=== PATIENT | male | born 1935 | race Hispanic/Latino ===

== ENCOUNTER 2017-11-08 02:07 | Inpatient (IN) | payer OTHER, MEDICAID ==
[2017-11-08] MEDS ORDERED: Amiodarone 150mg/3 ml vial ONE (02:15)
[2017-11-08] MEDS ORDERED: Sodium Chloride 0.9% 1,000 ML IV STA (02:27)
[2017-11-08 02:36] VITALS: BMI 20.3
[2017-11-08 02:40] LABS: VENOUS BLOOD GAS BASE EXCESS -3.7 mmol/L (0.0-2.0); VENOUS BLOOD GAS PCO2 45 mmHg (40-60); VENOUS BLOOD GAS PO2 14 mm/Hg (30-55); VENOUS BLOOD PH 7.31 (7.32-7.43)
[2017-11-08 02:43] LABS: BASO % 0.2 % (0.0-2.0); HEMOGLOBIN 11.5 g/dL (12.0-18.0); LYMPH # 0.6 K/uL (1.0-4.3); LYMPH % 4.5 % (20.0-40.0); MEAN CELL VOLUME 93.1 fL (80.0-94.0); MEAN CORPUSCULAR HEMOGLOBIN 30.5 pg (27.0-31.0); MEAN CORPUSCULAR HGB CONC 32.8 g/dL (33.0-37.0); MEAN PLATELET VOLUME 11.1 fL (7.2-11.7); MONO # 0.3 K/uL (0.0-0.8); MONO % 2.2 % (0.0-10.0); NEUT % 93.1 % (50.0-75.0); NRBC % 0.1 % (0.0-2.0); PLATELET COUNT 182 K/uL (130-400); RBC 3.79 Mil/uL (4.40-5.90); RED CELL DISTRIBUTION WIDTH 15.5 % (11.5-14.5)
[2017-11-08 02:50] LABS: INR 1.5; PROTHROMBIN TIME 17.1 SECONDS (9.7-12.2)
[2017-11-08 02:55] LABS: CALCIUM 8.2 mg/dl (8.6-10.4)
[2017-11-08] MEDS ORDERED: Piperacillin/Tazobact 3.375 gm 100 ML IVPB STA (02:56)
[2017-11-08 02:57] LABS: ALB/GLOB RATIO 0.7 (1.0-2.1); ALBUMIN 2.8 g/dL (3.5-5.0)
[2017-11-08] MEDS ORDERED: Moxifloxacin IV 400mg/250ml NS 400 MG/250 ML BAG IVPB STA (02:57)
[2017-11-08] MEDS ORDERED: Vancomycin 1 GM 1 GM/250 ML BAG IVPB STA (02:58)
[2017-11-08 03:09] LABS: CK-MB 0.68 ng/mL (0.0-3.38); TROPONIN I 0.105 ng/mL (0.00-0.120)
[2017-11-08] MEDS ORDERED: Piperacill/Tazo 3.375gm in Dex 3.375 GM/50 ML BAG IVPB STA (03:23)
[2017-11-08] MEDS ORDERED: Digoxin 500 mcg/2ml (0.5 mg/2ml) Inj IVP ONE ×2 (03:31→09:28)
[2017-11-08] MEDS ORDERED: Sodium Chloride 0.9% 1,000 ML IV ONE (03:35)
[2017-11-08 03:53] LABS: BANDS 62 % (0-2); LYMPHOCYTE 7 % (20-40); METAMYELOCYTE 1 % (0-0); MONOCYTE 4 % (0-10); NEUTROPHIL 25 % (50-75); PLATELET ESTIMATE NORMAL (NORMAL); REACTIVE LYMPHOCYTES 1 % (0-0); TOTAL CELLS COUNTED 100
[2017-11-08] MEDS ORDERED: Azithromycin 500 MG in Sodium Chloride 0.9% 250 ML IVPB STA (03:55)
[2017-11-08 03:57] LABS: SQUAMOUS EPITHIAL < 1 /hpf (0-5); URINE AMORPHOUS SEDIMENT RARE /ul (<OCC); URINE BACTERIA MANY (<OCC); URINE BILIRUBIN 1+ (NEGATIVE); URINE BLOOD 1+ (NEGATIVE); URINE CLARITY Hazy (Clear); URINE COLOR Amber (YELLOW); URINE GLUCOSE (UA) NORMAL (Normal); URINE LEUKOCYTE ESTERASE 1+ Leu/uL (Negative); URINE PROTEIN 2+ mg/dL (NEGATIVE)
[2017-11-08] MEDS ORDERED: Vancomycin 1 gm/NS 200 ml 1 GM/200 ML BAG IVPB STA (04:05)
--- NOTE | 2017-11-08 04:12 | CP.PCM.CON ---
History of Present Illness - History of Present Illness History of Present Illness: 82 y/o male from long term presents to [facility] with low BP and A-fib with RVR. Patient was unsuccessfully cardioverted by EMS. Patient cannot provide any history due to underlying dementia. Patient has a history of dysphagia. Pmx: reviewed from [place] notes Psurghx: reviewed from [place] notes allergiee: no allergies family history reviewed and non-contributary Review of Systems - Review of Systems Review of Systems: febrile/RVR - Constitutional Constitutional: As Per HPI Past Patient History - Infectious Disease Hx of Infectious Diseases: None - Past Social History Smoking Status: Unknown If Ever Smoked - CARDIAC Other/Comment: Acute Ischemic Heart disease - NEUROLOGICAL Other/Comment: Cerebral Infarction - HEMATOLOGICAL/ONCOLOGICAL Hx Anemia: Yes Other/Comment: B12 deficiency - MUSCULOSKELETAL/RHEUMATOLOGICAL Hx Osteoporosis: Yes - GASTROINTESTINAL Hx Gastroesophageal Reflux: Yes - PSYCHIATRIC Hx Substance Use: No - SURGICAL HISTORY Hx Surgeries: No - ANESTHESIA Hx Anesthesia: No Meds Allergies/Adverse Reactions: Allergies Allergy/AdvReac Type Severity Reaction Status Date / Time No Known Allergies Allergy Unverified 11/08/17 02:23 - Medications Medications: Current Medications Heparin Sodium (Porcine) (Heparin) 5,000 units SC Q12H VANE Sodium Bicarbonate 75 meq/ (Sodium Chloride) 1,075 mls @ 42 mls/hr IV .Q24H VANE Sodium Chloride (Sodium Chloride 0.9%) 1,000 mls @ 1,000 mls/hr IV .Q1H ONE Stop: 11/08/17 04:34 Last Admin: 11/08/17 02:30 Dose: 1,000 mls/hr Azithromycin 500 mg/ Sodium (Chloride) 250 mls @ 166.667 mls/hr IVPB STAT STA PRN Reason: Protocol Stop: 11/08/17 05:24 Vancomycin/Sodium Chloride (Vancomycin 1 Gm/Ns 200 Ml) 1 gm in 200 mls @ 133.333 mls/hr IVPB STAT STA PRN Reason: Protocol Stop: 11/08/17 05:34 Physical Exam - Head Exam Additional comments: 3 [place] holes left frontal skull - Eye Exam Eye Exam: EOMI - ENT Exam ENT Exam: Mucous Membranes Dry - Neck Exam Neck exam: Positive for: Normal Inspection - Respiratory Exam Respiratory Exam: Clear to Auscultation Bilateral, Respiratory Distress. absent : Rales, Rhonchi, Wheezes - Cardiovascular Exam Cardiovascular Exam: Tachycardia, +S1, +S2 - GI/Abdominal Exam GI & Abdominal Exam: Normal Bowel Sounds, Soft - Extremities Exam Extremities exam: Positive for: pedal edema - Neurological Exam Neurological exam: Alert Results - Vital Signs Recent Vital Signs: Last Vital Signs Temp 101.8 F H 11/08/17 02:51 Pulse 168 H 11/08/17 02:43 Resp 24 11/08/17 02:43 BP 95/30 L 11/08/17 02:43 Pulse Ox 97 11/08/17 02:43 - Labs Result Diagrams: 11/08/17 02:40 11/08/17 02:40 Labs: Laboratory Results - last 24 hr 11/08/17 11/08/17 11/08/17 02:19 02:29 02:40 WBC 14.0 H RBC 3.79 L Hgb 11.5 L Hct 35.3 MCV 93.1 MCH 30.5 MCHC 32.8 L RDW 15.5 H Plt Count 182 MPV 11.1 Neut % (Auto) 93.1 H Lymph % (Auto) 4.5 L [place] % (Auto) 2.2 Eos % (Auto) 0.0 Baso % (Auto) 0.2 Neut # (Auto) 13.0 H Lymph # (Auto) 0.6 L [place] # (Auto) 0.3 Eos # (Auto) 0.0 Baso # (Auto) 0.0 Neutrophils % (Manual) 25 L Band Neutrophils % 62 H* Lymphocytes % (Manual) 7 L Reactive Lymphs % 1 H Monocytes % (Manual) 4 Metamyelocytes % 1 H Platelet Estimate Normal PT INR APTT pO2 14 L VBG pH 7.31 L VBG pCO2 45 VBG HCO3 19.8 VBG Total CO2 24.1 VBG O2 Sat (Calc) 19.7 L VBG Base Excess -3.7 L VBG Potassium 3.2 L Sodium 142.0 Chloride 105.0 Glucose 106 Lactate 5.5 H* Crit Value Called To Dr dubon Crit Value Called By Soheila humphrey rt Crit Value Read Back Y Blood Gas Notified Time 240 Potassium Carbon Dioxide Anion Gap BUN Creatinine Est GFR ( Amer) Est GFR (Non-Af Amer) POC Glucose (mg/dL) 120 H Random Glucose Calcium Magnesium Total Bilirubin AST ALT Alkaline Phosphatase Total Creatine Kinase CK-MB (Mass) Troponin I NT-Pro-B Natriuret Pep Total Protein Albumin Globulin Albumin/Globulin Ratio Venous Blood Potassium 3.2 L Urine Color Urine Clarity Urine pH Ur Specific [place] Urine Protein Urine Glucose (UA) Urine Ketones Urine Blood Urine Nitrate Urine Bilirubin Urine Urobilinogen Ur Leukocyte Esterase Urine WBC (Auto) Urine RBC (Auto) Ur Squamous Epith Cells Amorphous Sediment Urine Bacteria Valproic Acid 11/08/17 11/08/17 11/08/17 02:40 02:40 02:58 WBC RBC Hgb Hct MCV MCH MCHC RDW Plt Count MPV Neut % (Auto) Lymph % (Auto) [place] % (Auto) Eos % (Auto) Baso % (Auto) Neut # (Auto) Lymph # (Auto) [place] # (Auto) Eos # (Auto) Baso # (Auto) Neutrophils % (Manual) Band Neutrophils % Lymphocytes % (Manual) Reactive Lymphs % Monocytes % (Manual) Metamyelocytes % Platelet Estimate PT 17.1 H INR 1.5 APTT 30 pO2 VBG pH VBG pCO2 VBG HCO3 VBG Total CO2 VBG O2 Sat (Calc) VBG Base Excess VBG Potassium Sodium 144 Chloride 104 Glucose Lactate Crit Value Called To Crit Value Called By Crit Value Read Back Blood Gas Notified Time Potassium 4.2 Carbon Dioxide 22 Anion Gap 22 H BUN 59 H Creatinine 2.7 H Est GFR ( Amer) 27 Est GFR (Non-Af Amer) 23 POC Glucose (mg/dL) Random Glucose 103 Calcium 8.2 L Magnesium 2.0 Total Bilirubin 1.7 H AST 40 ALT 15 L Alkaline Phosphatase 62 Total Creatine Kinase 168 CK-MB (Mass) 0.68 Troponin I 0.1050 NT-Pro-B Natriuret Pep 6170 H Total Protein 6.9 Albumin 2.8 L Globulin 4.1 H Albumin/Globulin Ratio 0.7 L Venous Blood Potassium Urine Color Urine Clarity Urine pH Ur Specific [place] Urine Protein Urine Glucose (UA) Urine Ketones Urine Blood Urine Nitrate Urine Bilirubin Urine Urobilinogen Ur Leukocyte Esterase Urine WBC (Auto) Urine RBC (Auto) Ur Squamous Epith Cells Amorphous Sediment Urine Bacteria Valproic Acid < 10.0 L 11/08/17 03:45 WBC RBC Hgb Hct MCV MCH MCHC RDW Plt Count MPV Neut % (Auto) Lymph % (Auto) [place] % (Auto) Eos % (Auto) Baso % (Auto) Neut # (Auto) Lymph # (Auto) [place] # (Auto) Eos # (Auto) Baso # (Auto) Neutrophils % (Manual) Band Neutrophils % Lymphocytes % (Manual) Reactive Lymphs % Monocytes % (Manual) Metamyelocytes % Platelet Estimate PT INR APTT pO2 VBG pH VBG pCO2 VBG HCO3 VBG Total CO2 VBG O2 Sat (Calc) VBG Base Excess VBG Potassium Sodium Chloride Glucose Lactate Crit Value Called To Crit Value Called By Crit Value Read Back Blood Gas Notified Time Potassium Carbon Dioxide Anion Gap BUN Creatinine Est GFR ( Amer) Est GFR (Non-Af Amer) POC Glucose (mg/dL) Random Glucose Calcium Magnesium Total Bilirubin AST ALT Alkaline Phosphatase Total Creatine Kinase CK-MB (Mass) Troponin I NT-Pro-B Natriuret Pep Total Protein Albumin Globulin Albumin/Globulin Ratio Venous Blood Potassium Urine Color [place] Urine Clarity Hazy Urine pH 5.0 Ur Specific [place] 1.018 Urine Protein 2+ H Urine Glucose (UA) Normal Urine Ketones Negative Urine Blood 1+ H Urine Nitrate Negative Urine Bilirubin 1+ H Urine Urobilinogen 4.0 Ur Leukocyte Esterase 1+ H Urine WBC (Auto) 59 H Urine RBC (Auto) 8 H Ur Squamous Epith Cells < 1 Amorphous Sediment Rare H Urine Bacteria Many H Valproic Acid Assessment & Plan - Assessment and Plan (Free Text) Assessment: -Sepsis: continue sepsis protocol with 30 ml/kg of IVF with broad spectruma bx zosyn/vanco per level and azithro), burch culture and serial lactic -A-fib with RVR: dig 0.5 mg and verapamil 2.5 mg, HR controlled with IVF, BNP high, suspect diastolice heart failure -CKD: suspect chronic dehydration, avoid nephrotoxic drugs -at risk of CAD: RBBB/A-fib, check trop x3 q8hrs obtain echo -GI: NPO, speech and swallow -BGm q6hrs, ISS lispro -dvt ppx heparin sq q12hrs -PUD ppx pepcid 20 mg q24hrs Patient will benefit from ICU level care for hydration, resusiation for sepsis and prompt abx regimen cc time 40 minutes - Date & Time Date: 11/08/17 Time: 04:23
--- NOTE | 2017-11-08 04:15 | C.PDOC ---
History Of Present Illness EMS found pt hypertensive and in rapid Afib. They attempted cardioversion with 50J, unsuccessfully. Pt was given Amiodarone 150mg on ED arrival with no change in rhythm. Pt was found to be febrile in the ED. Time Seen by Provider: 11/08/17 02:16 Chief Complaint (Nursing): Altered Mental Status History Per: Patient, EMS, Other ([facility] records) History/Exam Limitations: Clinical Condition Onset/Duration Of Symptoms: Other (tonight) Onset Of Symptoms: Cannot Confirm Onset Current Symptoms Are (Timing): Still Present Usual Baseline: Bedridden Exacerbating Factor(s): Fever Severity: Severe Additional History Per: Care Home, Prior Records Associated Symptoms: Fever, Confused, Cough Past Medical History Reviewed: Historical Data, Nursing Documentation, Vital Signs Vital Signs: Last Vital Signs Temp 101.8 F H 11/08/17 02:51 Pulse 168 H 11/08/17 02:43 Resp 24 11/08/17 02:43 BP 95/30 L 11/08/17 02:43 Pulse Ox 97 11/08/17 02:43 - Medical History PMH: Anemia, Bipolar Disorder, Hyperlipidemia, Osteoporosis Family History: States: Unknown Family Hx - Social History Hx Alcohol Use: No Hx Substance Use: No - Immunization History Hx Tetanus Toxoid Vaccination: No (no record) Hx Influenza Vaccination: No (no record) Hx Pneumococcal Vaccination: No Review Of Systems Review Of Systems: ROS cannot be obtained secondary to pt's inabilty to answer questions. Physical Exam - Physical Exam Appears: Toxic, In Acute Distress, Confused, Chronically Ill Skin: Normal Color, Warm, Dry Head: Atraumatic Eye(s): bilateral: PERRL Oral Mucosa: Dry Neck: Normal ROM, Supple Cardiovascular: Rhythm Irregular (tachycardia) Respiratory: No Accessory Muscle Use, Rhonchi Gastrointestinal/Abdominal: Soft Extremity: Normal ROM Neurological/Psych: Eyes Open With Command, Slow To Respond With Command, Other (Moving all extremities) ED Course And Treatment - Laboratory Results Result Diagrams: 11/08/17 02:40 11/08/17 02:40 Lab Interpretation: Abnormal Interpretation Of Abnormal: Bandemia. Elevated BUN/Cr. Possible UTI. ECG: Interpreted By Me, Viewed By Me ECG Rhythm: Atrial Fibrillation, R BBB, Nonspecific Changes ECG Interpretation: Abnormal Rate From EC Pulse Ox Interpretation: Abnormal Interpretation Of Abnormal: Hypoxia on RA - Radiology CXR: Interpreted by Me, Viewed By Me CXR Interpretation: Yes: Infiltrates (multifocal) - Physician Consult Information Physician Contacted: Alexia Collins (ICU) Outcome Of Conversation: He evaluated pt in the ED and admitted to ICU. Progress - Interventions Interventions:: Observation, Intravenous fluid, Oxygen - Medications Administered Intravenous: Other (Amiodarone, Abx) - Data Reviewed Data Reviewed: Lab, Diagnostic imaging, EKG, Old records - Patient Status Patient status: Partially improved, Critical - Critical Care Citical Care: Excluding Proc Time Critical Care Time: 60 minutes - Continuity of Care Discussed patient case with:: Patient, ED Nurse, On-call PMD-pt unassigned Discussed pt. case with medical sales consultant/specialty: Pulmonary/Crit. Care - Patient Plan Patient Plan: Admission, ICU Disposition Discussed With : Jared Bloom Comment: He accepted pt on hospitalist service. Doctor Will See Patient In The: Hospital Counseled Patient/Family Regarding: Studies Performed, Diagnosis - Disposition Disposition: HOSPITALIZED Disposition Time: 04:25 Condition: CRITICAL - Clinical Impression Clinical Impression: Sepsis, Atrial fibrillation with rapid ventricular response
--- NOTE | 2017-11-08 04:27 | PCM.SEPTIC ---
Sepsis Progress Note - Reassessment Type Reassessment Type: Non-invasive reassessment - Non Invasive Reassessment Were the most recent vital sign reviewed: Yes Vital Sign (Latest): Temp Pulse Resp BP Pulse Ox 101.8 F H 168 H 24 95/30 L 97 11/08/17 02:51 11/08/17 02:43 11/08/17 02:43 11/08/17 02:43 11/08/17 04:14 Cardiovascular: Yes: Tachycardia, Irregularly Irregular Respiratory: Yes: Normal Breath Sounds. No: Rales, Wheezing, Respiratory Distress Capillary Refill: Normal (Less than 2 sec) Pulses: Normal Radial, Decreased Dorsalis Pedis, Decreased Posterior Tibialis Skin: Normal Color - Invasive Reassessment (complete 2 of 4) Was a Central Venous Pressure Measurement obtained within 6 Hours after the presentation of septic shock: No Was a central venous oxygen measurement obtained within 6 hours after the presentation of septic shock: No Was a bedside cardiovascular ultrasound performed within 6 hours after the presentation of septic shock: No Type performed: Echocardiogram Was a passive leg raise performed or was a fluid challenge performed within 6 hrs of the initial fluid bolus: Yes Passive Leg Raise Result: Not Applicable Fluid Challenge performed: Yes
[2017-11-08] MEDS ORDERED: Piperacill/Tazo 2.25gm in Dex 2.25 GM/50 ML BAG IVPB SCH (04:30)
--- NOTE | 2017-11-08 05:18 | CP.PCM.HP ---
<DaisyAlda Roberto - Last Filed: 11/08/17 05:14> History of Present Illness - History of Present Illness History of Present Illness: CC: AMS HPI: Patient is an 82 y/o M with PMHx of Bipolar disorder, b/l club foot, poor vision b/l, CKD stage 3, BPH, GERD, HTN, HLD, mixed incontinence, primary open angle glaucoma, and mitral valve insufficiency who was sent from [facility] for altered mental status and weakness. Patient found to be in A fib with RVR. Patient cardioverted in field but stayed in A. Fib. On exam patient is altered. Patient unable to answer questions and is asking for water. ROS unobtainable. Information about PMHx gathered from paperwork from [facility]. Allergies: NKDA PMHx: Bipolar disorder, b/l club foot, poor vision b/l, CKD stage 3, BPH, GERD, HTN, HLD, mixed incontinence, primary open angle glaucoma, mitral valve insufficiency Present on Admission - Present on Admission Any Indicators Present on Admission: No History of DVT/PE: No History of Uncontrolled Diabetes: No Urinary Catheter: No Decubitus Ulcer Present: No Review of Systems - Review of Systems Systems not reviewed;Unavailable: Altered Mental Status Past Patient History - Infectious Disease Hx of Infectious Diseases: None - Past Social History Smoking Status: Unknown If Ever Smoked - CARDIAC Other/Comment: Acute Ischemic Heart disease - NEUROLOGICAL Other/Comment: Cerebral Infarction - HEMATOLOGICAL/ONCOLOGICAL Hx Anemia: Yes - MUSCULOSKELETAL/RHEUMATOLOGICAL Hx Osteoporosis: Yes - GASTROINTESTINAL Hx Gastroesophageal Reflux: Yes - PSYCHIATRIC Hx Bipolar Disorder: Yes Hx Substance Use: No - SURGICAL HISTORY Hx Surgeries: No - ANESTHESIA Hx Anesthesia: No Meds Allergies/Adverse Reactions: Allergies Allergy/AdvReac Type Severity Reaction Status Date / Time No Known Allergies Allergy Unverified 11/08/17 02:23 Physical Exam - Constitutional Appears: Toxic, No Acute Distress - Head Exam Head Exam: ATRAUMATIC, NORMAL INSPECTION, NORMOCEPHALIC Additional comments: 3 [place]ina holes left skull - Eye Exam Eye Exam: EOMI, Normal appearance - ENT Exam ENT Exam: Mucous Membranes Dry - Respiratory Exam Respiratory Exam: Clear to Auscultation Bilateral, NORMAL BREATHING PATTERN. absent: Rhonchi, Wheezes, Respiratory Distress Additional comments: nonrebreather mask - Cardiovascular Exam Cardiovascular Exam: Tachycardia, Irregular Rhythm, +S1, +S2. absent: RRR - GI/Abdominal Exam GI & Abdominal Exam: Normal Bowel Sounds, Soft. absent: Tenderness - Extremities Exam Extremities exam: Positive for: normal inspection Additional comments: b/l club foot - Neurological Exam Neurological exam: Altered - Skin Skin Exam: Intact, Normal Color, Warm Results - Vital Signs Recent Vital Signs: Last Vital Signs Temp 98.3 F 11/08/17 04:37 Pulse 103 H 11/08/17 04:37 Resp 16 11/08/17 04:37 BP 92/68 L 11/08/17 04:37 Pulse Ox 95 11/08/17 04:37 - Labs Result Diagrams: 11/08/17 02:40 11/08/17 02:40 Labs: Laboratory Results - last 24 hr 11/08/17 11/08/17 11/08/17 02:19 02:29 02:40 WBC 14.0 H RBC 3.79 L Hgb 11.5 L Hct 35.3 MCV 93.1 MCH 30.5 MCHC 32.8 L RDW 15.5 H Plt Count 182 MPV 11.1 Neut % (Auto) 93.1 H Lymph % (Auto) 4.5 L [place] % (Auto) 2.2 Eos % (Auto) 0.0 Baso % (Auto) 0.2 Neut # (Auto) 13.0 H Lymph # (Auto) 0.6 L [place] # (Auto) 0.3 Eos # (Auto) 0.0 Baso # (Auto) 0.0 Neutrophils % (Manual) 25 L Band Neutrophils % 62 H* Lymphocytes % (Manual) 7 L Reactive Lymphs % 1 H Monocytes % (Manual) 4 Metamyelocytes % 1 H Platelet Estimate Normal PT INR APTT pO2 14 L VBG pH 7.31 L VBG pCO2 45 VBG HCO3 19.8 VBG Total CO2 24.1 VBG O2 Sat (Calc) 19.7 L VBG Base Excess -3.7 L VBG Potassium 3.2 L Sodium 142.0 Chloride 105.0 Glucose 106 Lactate 5.5 H* Crit Value Called To Dr dubon Crit Value Called By Soheila humphrey rt Crit Value Read Back Y Blood Gas Notified Time 240 Potassium Carbon Dioxide Anion Gap BUN Creatinine Est GFR ( Amer) Est GFR (Non-Af Amer) POC Glucose (mg/dL) 120 H Random Glucose Calcium Magnesium Total Bilirubin AST ALT Alkaline Phosphatase Total Creatine Kinase CK-MB (Mass) Troponin I NT-Pro-B Natriuret Pep Total Protein Albumin Globulin Albumin/Globulin Ratio Venous Blood Potassium 3.2 L Urine Color Urine Clarity Urine pH Ur Specific Mcgee Urine Protein Urine Glucose (UA) Urine Ketones Urine Blood Urine Nitrate Urine Bilirubin Urine Urobilinogen Ur Leukocyte Esterase Urine WBC (Auto) Urine RBC (Auto) Ur Squamous Epith Cells Amorphous Sediment Urine Bacteria Valproic Acid 11/08/17 11/08/17 11/08/17 02:40 02:40 02:58 WBC RBC Hgb Hct MCV MCH MCHC RDW Plt Count MPV Neut % (Auto) Lymph % (Auto) [place] % (Auto) Eos % (Auto) Baso % (Auto) Neut # (Auto) Lymph # (Auto) [place] # (Auto) Eos # (Auto) Baso # (Auto) Neutrophils % (Manual) Band Neutrophils % Lymphocytes % (Manual) Reactive Lymphs % Monocytes % (Manual) Metamyelocytes % Platelet Estimate PT 17.1 H INR 1.5 APTT 30 pO2 VBG pH VBG pCO2 VBG HCO3 VBG Total CO2 VBG O2 Sat (Calc) VBG Base Excess VBG Potassium Sodium 144 Chloride 104 Glucose Lactate Crit Value Called To Crit Value Called By Crit Value Read Back Blood Gas Notified Time Potassium 4.2 Carbon Dioxide 22 Anion Gap 22 H BUN 59 H Creatinine 2.7 H Est GFR ( Amer) 27 Est GFR (Non-Af Amer) 23 POC Glucose (mg/dL) Random Glucose 103 Calcium 8.2 L Magnesium 2.0 Total Bilirubin 1.7 H AST 40 ALT 15 L Alkaline Phosphatase 62 Total Creatine Kinase 168 CK-MB (Mass) 0.68 Troponin I 0.1050 NT-Pro-B Natriuret Pep 6170 H Total Protein 6.9 Albumin 2.8 L Globulin 4.1 H Albumin/Globulin Ratio 0.7 L Venous Blood Potassium Urine Color Urine Clarity Urine pH Ur Specific Mcgee Urine Protein Urine Glucose (UA) Urine Ketones Urine Blood Urine Nitrate Urine Bilirubin Urine Urobilinogen Ur Leukocyte Esterase Urine WBC (Auto) Urine RBC (Auto) Ur Squamous Epith Cells Amorphous Sediment Urine Bacteria Valproic Acid < 10.0 L 11/08/17 03:45 WBC RBC Hgb Hct MCV MCH MCHC RDW Plt Count MPV Neut % (Auto) Lymph % (Auto) [place] % (Auto) Eos % (Auto) Baso % (Auto) Neut # (Auto) Lymph # (Auto) [place] # (Auto) Eos # (Auto) Baso # (Auto) Neutrophils % (Manual) Band Neutrophils % Lymphocytes % (Manual) Reactive Lymphs % Monocytes % (Manual) Metamyelocytes % Platelet Estimate PT INR APTT pO2 VBG pH VBG pCO2 VBG HCO3 VBG Total CO2 VBG O2 Sat (Calc) VBG Base Excess VBG Potassium Sodium Chloride Glucose Lactate Crit Value Called To Crit Value Called By Crit Value Read Back Blood Gas Notified Time Potassium Carbon Dioxide Anion Gap BUN Creatinine Est GFR ( Amer) Est GFR (Non-Af Amer) POC Glucose (mg/dL) Random Glucose Calcium Magnesium Total Bilirubin AST ALT Alkaline Phosphatase Total Creatine Kinase CK-MB (Mass) Troponin I NT-Pro-B Natriuret Pep Total Protein Albumin Globulin Albumin/Globulin Ratio Venous Blood Potassium Urine Color Eleonora Urine Clarity Hazy Urine pH 5.0 Ur Specific Mcgee 1.018 Urine Protein 2+ H Urine Glucose (UA) Normal Urine Ketones Negative Urine Blood 1+ H Urine Nitrate Negative Urine Bilirubin 1+ H Urine Urobilinogen 4.0 Ur Leukocyte Esterase 1+ H Urine WBC (Auto) 59 H Urine RBC (Auto) 8 H Ur Squamous Epith Cells < 1 Amorphous Sediment Rare H Urine Bacteria Many H Valproic Acid Assessment & Plan - Assessment and Plan (Free Text) Assessment: Sepsis: admit to ICU WBC: 14, bands 62 Lactate 5.5 sepsis protocol IVF zosyn/vanco azithromycin burch culture serial lactates A-fib w/ RVR: EKG: A fib with RVR at 172 dig 0.5 mg and verapamil 2.5 mg Trop I .105 JOYCE x 2 Echo CKD BUN: 59 Cr: 2.7 IVF avoid nephrotoxic drugs Prophylaxis: Heparin 5000 sc q12h Pepcid 20mg daily <Jared Bloom - Last Filed: 11/08/17 06:39> Results - Vital Signs Recent Vital Signs: Last Vital Signs Temp 98 F 11/08/17 05:58 Pulse 95 H 11/08/17 05:22 Resp 18 11/08/17 05:22 BP 92/68 L 11/08/17 04:37 Pulse Ox 100 11/08/17 05:22 - Labs Result Diagrams: 11/08/17 02:40 11/08/17 02:40 Labs: Laboratory Results - last 24 hr 11/08/17 11/08/17 11/08/17 02:19 02:29 02:40 WBC 14.0 H RBC 3.79 L Hgb 11.5 L Hct 35.3 MCV 93.1 MCH 30.5 MCHC 32.8 L RDW 15.5 H Plt Count 182 MPV 11.1 Neut % (Auto) 93.1 H Lymph % (Auto) 4.5 L [place] % (Auto) 2.2 Eos % (Auto) 0.0 Baso % (Auto) 0.2 Neut # (Auto) 13.0 H Lymph # (Auto) 0.6 L [place] # (Auto) 0.3 Eos # (Auto) 0.0 Baso # (Auto) 0.0 Neutrophils % (Manual) 25 L Band Neutrophils % 62 H* Lymphocytes % (Manual) 7 L Reactive Lymphs % 1 H Monocytes % (Manual) 4 Metamyelocytes % 1 H Platelet Estimate Normal PT INR APTT pO2 14 L VBG pH 7.31 L VBG pCO2 45 VBG HCO3 19.8 VBG Total CO2 24.1 VBG O2 Sat (Calc) 19.7 L VBG Base Excess -3.7 L VBG Potassium 3.2 L Sodium 142.0 Chloride 105.0 Glucose 106 Lactate 5.5 H* Crit Value Called To Dr dubon Crit Value Called By Soheila humphrey rt Crit Value Read Back Y Blood Gas Notified Time 240 Potassium Carbon Dioxide Anion Gap BUN Creatinine Est GFR ( Amer) Est GFR (Non-Af Amer) POC Glucose (mg/dL) 120 H Random Glucose Calcium Phosphorus Magnesium Total Bilirubin AST ALT Alkaline Phosphatase Total Creatine Kinase CK-MB (Mass) Troponin I NT-Pro-B Natriuret Pep Total Protein Albumin Globulin Albumin/Globulin Ratio Venous Blood Potassium 3.2 L Urine Color Urine Clarity Urine pH Ur Specific Mcgee Urine Protein Urine Glucose (UA) Urine Ketones Urine Blood Urine Nitrate Urine Bilirubin Urine Urobilinogen Ur Leukocyte Esterase Urine WBC (Auto) Urine RBC (Auto) Ur Squamous Epith Cells Amorphous Sediment Urine Bacteria Valproic Acid 11/08/17 11/08/17 11/08/17 02:40 02:40 02:58 WBC RBC Hgb Hct MCV MCH MCHC RDW Plt Count MPV Neut % (Auto) Lymph % (Auto) [place] % (Auto) Eos % (Auto) Baso % (Auto) Neut # (Auto) Lymph # (Auto) [place] # (Auto) Eos # (Auto) Baso # (Auto) Neutrophils % (Manual) Band Neutrophils % Lymphocytes % (Manual) Reactive Lymphs % Monocytes % (Manual) Metamyelocytes % Platelet Estimate PT 17.1 H INR 1.5 APTT 30 pO2 VBG pH VBG pCO2 VBG HCO3 VBG Total CO2 VBG O2 Sat (Calc) VBG Base Excess VBG Potassium Sodium 144 Chloride 104 Glucose Lactate Crit Value Called To Crit Value Called By Crit Value Read Back Blood Gas Notified Time Potassium 4.2 Carbon Dioxide 22 Anion Gap 22 H BUN 59 H Creatinine 2.7 H Est GFR ( Amer) 27 Est GFR (Non-Af Amer) 23 POC Glucose (mg/dL) Random Glucose 103 Calcium 8.2 L Phosphorus Magnesium 2.0 Total Bilirubin 1.7 H AST 40 ALT 15 L Alkaline Phosphatase 62 Total Creatine Kinase 168 CK-MB (Mass) 0.68 Troponin I 0.1050 NT-Pro-B Natriuret Pep 6170 H Total Protein 6.9 Albumin 2.8 L Globulin 4.1 H Albumin/Globulin Ratio 0.7 L Venous Blood Potassium Urine Color Urine Clarity Urine pH Ur Specific [place] Urine Protein Urine Glucose (UA) Urine Ketones Urine Blood Urine Nitrate Urine Bilirubin Urine Urobilinogen Ur Leukocyte Esterase Urine WBC (Auto) Urine RBC (Auto) Ur Squamous Epith Cells Amorphous Sediment Urine Bacteria Valproic Acid < 10.0 L 11/08/17 11/08/17 11/08/17 03:45 04:24 05:17 WBC RBC Hgb Hct MCV MCH MCHC RDW Plt Count MPV Neut % (Auto) Lymph % (Auto) [place] % (Auto) Eos % (Auto) Baso % (Auto) Neut # (Auto) Lymph # (Auto) [place] # (Auto) Eos # (Auto) Baso # (Auto) Neutrophils % (Manual) Band Neutrophils % Lymphocytes % (Manual) Reactive Lymphs % Monocytes % (Manual) Metamyelocytes % Platelet Estimate PT INR APTT pO2 21 L VBG pH 7.31 L VBG pCO2 39 L VBG HCO3 18.2 VBG Total CO2 20.8 L VBG O2 Sat (Calc) 37.6 L VBG Base Excess -6.2 L VBG Potassium 3.4 L Sodium 141.0 Chloride 110.0 H Glucose 92 Lactate 5.7 H* Crit Value Called To Cassi rn Crit Value Called By Toño independent producer Crit Value Read Back Y Blood Gas Notified Time 520 Potassium Carbon Dioxide Anion Gap BUN Creatinine Est GFR ( Amer) Est GFR (Non-Af Amer) POC Glucose (mg/dL) Random Glucose Calcium Phosphorus 3.7 Magnesium Total Bilirubin AST ALT Alkaline Phosphatase Total Creatine Kinase CK-MB (Mass) Troponin I NT-Pro-B Natriuret Pep Total Protein Albumin Globulin Albumin/Globulin Ratio Venous Blood Potassium 3.4 L Urine Color Eleonora Urine Clarity Hazy Urine pH 5.0 Ur Specific [place]ge[place] 1.018 Urine Protein 2+ H Urine Glucose (UA) Normal Urine Ketones Negative Urine Blood 1+ H Urine Nitrate Negative Urine Bilirubin 1+ H Urine Urobilinogen 4.0 Ur Leukocyte Esterase 1+ H Urine WBC (Auto) 59 H Urine RBC (Auto) 8 H Ur Squamous Epith Cells < 1 Amorphous Sediment Rare H Urine Bacteria Many H Valproic Acid Assessment & Plan - Date & Time Date: 11/08/17 (I have seen and examined the patient. I agree with the findings and plan of care as documented by Dr. Spangler. Patient with sepsis. Likely secondary to pneumonia. Vanco, zosyn, and Azithromycin. Also with atrial fib with RVR. Dig and Verapamil. Also with CKD. Monitor and consider nephro consult. Admit to ICU for further management. Monitor for acute changes.) Time: 06:37 Attending/Attestation - Attestation I have personally seen and examined this patient.: Yes I have fully participated in the care of the patient.: Yes I have reviewed all pertinent clinical information: Yes
[2017-11-08 05:21] LABS: VENOUS BLOOD GAS BASE EXCESS -6.2 mmol/L (0.0-2.0); VENOUS BLOOD GAS PCO2 39 mmHg (40-60); VENOUS BLOOD GAS PO2 21 mm/Hg (30-55); VENOUS BLOOD PH 7.31 (7.32-7.43)
--- NOTE | 2017-11-08 06:29 | CT ---
EXAM: CT Head Without Intravenous Contrast CLINICAL HISTORY: 82 years old, male; Signs and symptoms; Altered mental status/memory loss; Confusion or disorientation; Additional info: Eval sub dural TECHNIQUE: Axial computed tomography images of the head/brain without intravenous contrast. All CT scans at this facility use one or more dose reduction techniques, viz.: automated exposure control; ma/kV adjustment per patient size (including targeted exams where dose is matched to indication; i.e. head); or iterative reconstruction technique. Coronal and sagittal reformatted images were created and reviewed. COMPARISON: No relevant prior studies available. FINDINGS: Brain: Severe cerebral atrophy. 0.4 x 0.4 x 0.3 cm hyperdense focus within left cerebellum. No mass. Several scattered foci of decreased attenuation within periventricular/subcortical white matter. Grossly preserved quinn-white matter differentiation. Ventricles: Unremarkable. No hydrocephalus. Bones/joints: No acute fracture. Craniotomy. Postsurgical changes of right facial bones. Chronic deformity anterior wall of left maxilla sinus, nasal bones. Soft tissues: Unremarkable. Vasculature: Atherosclerotic disease of intracranial arteries. Sinuses: No acute sinusitis. Mastoid air cells: No mastoid effusion. Auditory system: Cerumen. Orbits: Unremarkable as visualized. IMPRESSION: 1. Small hyperdensity within left cerebellum concerning for hemorrhage. Followup is recommended. 2. Nonspecific white matter changes. Acute infarction may be CT occult within first 24 hours. If a focal deficit persists, consider followup CT or MRI for further evaluation. 3. Incidental/non-acute findings are described above.
[2017-11-08 07:38] LABS: BARBITURATES, UR NEGATIVE (NEGATIVE); BENZODIAZEPINES, UR NEGATIVE (NEGATIVE); OPIATES, UR NEGATIVE (NEGATIVE); PHENCYCLIDINE, UR NEGATIVE (NEGATIVE)
--- NOTE | 2017-11-08 08:40 | RAD ---
PROCEDURE: CHEST RADIOGRAPH, 1 VIEW HISTORY: tachycardia COMPARISON: Through FINDINGS: LUNGS: Examination limited due to oblique positioning. There is a large opacity adjacent to left hilum. Followup to rule out neoplasm. Possible pneumonia. There is also opacity at the right lung base without silhouetting of the heart border suggesting possible lower lobe infiltrate. PLEURA: No pneumothorax or pleural fluid seen. CARDIOVASCULAR: Normal. OSSEOUS STRUCTURES: No significant abnormalities. VISUALIZED UPPER ABDOMEN: Normal. OTHER FINDINGS: None. IMPRESSION: Left perihilar opacity. Right basilar opacity. Followup to clearing to exclude neoplasm.
--- NOTE | 2017-11-08 09:13 | CP.PCM.PN ---
Subjective - Date & Time of Evaluation Date of Evaluation: 11/08/17 Time of Evaluation: 09:00 - Subjective Subjective: Hospitalist Progress Note Patient was seen and examined at 9:00 AM 11/08/17 ICU Bed #12. 82 year old male who was transferred from [facility] for evaluation of change in mental status. He was found to have likely Bilateral Pneumonia, UTI, and new onset Atrial Fibrillation RVR. He was admitted to the ICU for further treatment and evaluation. Patient is verbal but does not answer questions concerning ROS. He keeps repeating that he wants Water. I spoke with [facility] Nurse Aracely this morning [phone] and confirmed his medications and medical history and that patient is FULL CODE as per her records. ROS is not possible Exam: General: Patien is awake but not answering questions concerning ROS. He did ask what the day and date was and he was told this information along with where he was HEENT: NCA, Pupils are round and reactive to light, He would not follow light for assessment of extraocular muscles NO cervical/supraclavicular/submandibular lymphadenopathy, NO pharyngeal erythema/exudate, Nasal Turbinates are nonerythematous/nonedematous, Oral Mucosa is dry Cardio: NS1 and NS2, NO M/R/G However this is limited due to background noise. EKG shows Afib Resp: CTA B/L, NO R/R/W, Again this is limited due to background noise GI: BSx4, Soft, NT, NO HSM, NO guarding/rebound tenderness, Small amount of stool present on bed when examining his skin Ext: Pulses are strong and equal, Capillary Refill is 2 seconds, NO edema Neuro: exam is not possible at this time Skin: Small area of nonblanchable erythema in the sacrum Assessments: 1). Sepsis Secondary to Likely Pneumonia and UTI Azithromycin 500 mg IV Q24H Zosyn 2.25 gm IV Q6H (renally dosed) F/U Blood Culture F/U Urine Culture F/U Rapid Influenza F/U Urine Legionella F/U Urine Strep pneumonia F/U Mycoplasma IgG and IgM F/U further recommendations from [facility] Barakat 2). Left Cerebellum Hemorrhage CT Head done at 5 AM 11/08/17 showed the possibility of hemorrhage in this area F/U Repeat CT Head at 5 PM 11/08/17 Consider MRI Brain without contrast F/U further recommendations from Neurology Dr. Capps 3). Atrial Fibrillation with RVR Cardioversion attempted by EMS en route to hospital NO anticoagulation secondary to the possible left cerebellum hemorrhage TSH and Troponin are negative Ordered Digoxin 0.5 mg IV x 1 dose as heart rate still elevated and patient still in Afib on monitor If the Digoxin does not work then consider starting Amiodarone Cardiology Dr. Soler F/U Venous Doppler Legs 4). Elevated ProBNP Could be secondary to the Afib? Could be secondary to the CKD Stage 3 F/U 2D Echocardiogram 5). CKG Stage 3 F/U further recommondations Nephrology Dr. Tolentino 6). HTN NOT on any medications as per [facility] 7). BPH He is on Avodart and Flomax 8). Hx Incontinence 9). Hx Primary Open Angle [place] 10). Hx Mitral Insufficiency F/U 2D Echocardiogram 11). Stage I Sacral Ulcer F/U Wound Care Turn patient every 2 hours 12). Hx Aggressive Behavior He is on Depakote F/U Swallow Evaluation and if OK then will start medications Avodart, Flomax, Depakote, Vitamin B12, Vitamin D, MVI, Remeron, Folic Acid, Colace NO ANTICOAGULATION Bilateral SCDs Juan Manuel Collins D.O. Objective - Vital Signs/Intake and Output Vital Signs (last 24 hours): Temp Pulse Resp BP Pulse Ox 97.9 F 94 H 19 90/49 L 99 11/08/17 07:28 11/08/17 08:00 11/08/17 08:00 11/08/17 07:49 11/08/17 08:00 Intake and Output: 11/08/17 11/08/17 06:59 18:59 Intake Total 250 150 Output Total 125 25 Balance 125 125 - Medications Medications: Current Medications Famotidine (Pepcid) 20 mg IVP DAILY VANE Azithromycin 500 mg/ Sodium (Chloride) 250 mls @ 250 mls/hr IVPB Q24H VANE PRN Reason: Protocol Stop: 11/12/17 09:59 Piperacillin Sod/Tazobactam Sod (Zosyn 2.25 Gm Iv Premix) 2.25 gm in 50 mls @ 100 mls/hr IVPB Q8H VANE PRN Reason: Protocol Sodium Bicarbonate 75 meq/ (Sodium Chloride) 1,075 mls @ 75 mls/hr IV .[id number] VANE Last Admin: 11/08/17 05:45 Dose: 75 mls/hr - Labs Labs: 11/08/17 02:40 11/08/17 02:40 PT 17.1 SECONDS (9.7-12.2) H 11/08/17 02:40 INR 1.5 11/08/17 02:40 APTT 30 SECONDS (21-34) 11/08/17 02:40
[2017-11-08 10:13] VITALS: PULSE 143
[2017-11-08 11:03] LABS: BASO % 0.1 % (0.0-2.0); EOS % 0.1 % (0.0-4.0); HEMOGLOBIN 11.6 g/dL (12.0-18.0); LYMPH # 0.4 K/uL (1.0-4.3); LYMPH % 3.9 % (20.0-40.0); MEAN CELL VOLUME 93.4 fL (80.0-94.0); MEAN CORPUSCULAR HEMOGLOBIN 30.7 pg (27.0-31.0); MEAN CORPUSCULAR HGB CONC 32.8 g/dL (33.0-37.0); MONO # 0.1 K/uL (0.0-0.8); MONO % 1.1 % (0.0-10.0); NEUT # 9.5 K/uL (1.8-7.0); NEUT % 94.8 % (50.0-75.0); PLATELET COUNT 140 K/uL (130-400); RBC 3.78 Mil/uL (4.40-5.90); WHITE BLOOD COUNT 10.1 K/uL (4.8-10.8)
--- NOTE | 2017-11-08 11:13 | CP.PCM.CON ---
History of Present Illness - History of Present Illness History of Present Illness: Tiny area of inc attenuation in medial L cerebellum of no clinical concern No neurosurgical involvement necessary Past Patient History - Infectious Disease Hx of Infectious Diseases: None - Past Medical History & Family History Past Medical History?: Yes - Past Social History Smoking Status: Unknown If Ever Smoked - CARDIAC Hx Cardiac Disorders: Yes Hx Hypercholesterolemia: Yes Hx Hypertension: Yes Other/Comment: Acute Ischemic Heart disease - PULMONARY Hx Respiratory Disorders: No - NEUROLOGICAL Hx Neurological Disorder: Yes Hx Vertigo: Yes Other/Comment: Cerebral Infarction - HEENT Hx HEENT Problems: Yes Hx Blind: Yes (L eye) Hx Cataracts: Yes (bilateral) - RENAL Hx Chronic Kidney Disease: Yes - ENDOCRINE/METABOLIC Hx Endocrine Disorders: No - HEMATOLOGICAL/ONCOLOGICAL Hx Blood Disorders: Yes Hx Anemia: Yes - INTEGUMENTARY Hx Dermatological Problems: No - MUSCULOSKELETAL/RHEUMATOLOGICAL Hx Falls: Yes - GASTROINTESTINAL Hx Gastrointestinal Disorders: Yes Hx Gastroesophageal Reflux: Yes - GENITOURINARY/GYNECOLOGICAL Hx Prostate Problems: Yes (enlarged) - PSYCHIATRIC Hx Psychophysiologic Disorder: Yes Hx Bipolar Disorder: Yes - SURGICAL HISTORY Hx Surgeries: No - ANESTHESIA Hx Anesthesia: No Hx Anesthesia Reactions: No (n/a) Meds Allergies/Adverse Reactions: Allergies Allergy/AdvReac Type Severity Reaction Status Date / Time No Known Allergies Allergy Unverified 11/08/17 02:23 - Medications Medications: Current Medications Famotidine (Pepcid) 20 mg IVP DAILY [facility] Last Admin: 11/08/17 10:13 Dose: 20 mg Azithromycin 500 mg/ Sodium (Chloride) 250 mls @ 250 mls/hr IVPB Q24H [facility] PRN Reason: Protocol Stop: 11/12/17 09:59 Piperacillin Sod/Tazobactam Sod (Zosyn 2.25 Gm Iv Premix) 2.25 gm in 50 mls @ 100 mls/hr IVPB Q8H [facility] PRN Reason: Protocol Sodium Bicarbonate 75 meq/ (Sodium Chloride) 1,075 mls @ 75 mls/hr IV .[id number] [facility] Last Admin: 11/08/17 05:45 Dose: 75 mls/hr Verapamil HCl (Verapamil Inj) 2.5 mg IVP Q12 [facility] Last Admin: 11/08/17 10:13 Dose: 2.5 mg Results - Vital Signs Recent Vital Signs: Last Vital Signs Temp 97.9 F 11/08/17 07:28 Pulse 127 H 11/08/17 11:00 Resp 20 11/08/17 11:00 BP 96/73 L 11/08/17 10:50 Pulse Ox 91 L 11/08/17 11:00 - Labs Result Diagrams: 11/08/17 10:51 11/08/17 02:40 Labs: Laboratory Results - last 24 hr 11/08/17 11/08/17 11/08/17 02:19 02:29 02:40 WBC 14.0 H RBC 3.79 L Hgb 11.5 L Hct 35.3 MCV 93.1 MCH 30.5 MCHC 32.8 L RDW 15.5 H Plt Count 182 MPV 11.1 Neut % (Auto) 93.1 H Lymph % (Auto) 4.5 L Kendall % (Auto) 2.2 Eos % (Auto) 0.0 Baso % (Auto) 0.2 Neut # (Auto) 13.0 H Lymph # (Auto) 0.6 L Kendall # (Auto) 0.3 Eos # (Auto) 0.0 Baso # (Auto) 0.0 Neutrophils % (Manual) 25 L Band Neutrophils % 62 H* Lymphocytes % (Manual) 7 L Reactive Lymphs % 1 H Monocytes % (Manual) 4 Metamyelocytes % 1 H Platelet Estimate Normal PT INR APTT pO2 14 L VBG pH 7.31 L VBG pCO2 45 VBG HCO3 19.8 VBG Total CO2 24.1 VBG O2 Sat (Calc) 19.7 L VBG Base Excess -3.7 L VBG Potassium 3.2 L Sodium 142.0 Chloride 105.0 Glucose 106 Lactate 5.5 H* Crit Value Called To Dr dubon Crit Value Called By Soheila humphrey rt Crit Value Read Back Y Blood Gas Notified Time 240 Potassium Carbon Dioxide Anion Gap BUN Creatinine Est GFR ( Amer) Est GFR (Non-Af Amer) POC Glucose (mg/dL) 120 H Random Glucose Calcium Phosphorus Magnesium Total Bilirubin AST ALT Alkaline Phosphatase Total Creatine Kinase CK-MB (Mass) Troponin I NT-Pro-B Natriuret Pep Total Protein Albumin Globulin Albumin/Globulin Ratio TSH 3rd Generation Venous Blood Potassium 3.2 L Urine Color Urine Clarity Urine pH Ur Specific Homer Urine Protein Urine Glucose (UA) Urine Ketones Urine Blood Urine Nitrate Urine Bilirubin Urine Urobilinogen Ur Leukocyte Esterase Urine WBC (Auto) Urine RBC (Auto) Ur Squamous Epith Cells Amorphous Sediment Urine Bacteria Urine Opiates Screen Urine Methadone Screen Ur Barbiturates Screen Valproic Acid Ur Phencyclidine Scrn Ur Amphetamines Screen U Benzodiazepines Scrn U Oth Cocaine Metabols U Cannabinoids Screen 11/08/17 11/08/17 11/08/17 02:40 02:40 02:58 WBC RBC Hgb Hct MCV MCH MCHC RDW Plt Count MPV Neut % (Auto) Lymph % (Auto) Kendall % (Auto) Eos % (Auto) Baso % (Auto) Neut # (Auto) Lymph # (Auto) Kendall # (Auto) Eos # (Auto) Baso # (Auto) Neutrophils % (Manual) Band Neutrophils % Lymphocytes % (Manual) Reactive Lymphs % Monocytes % (Manual) Metamyelocytes % Platelet Estimate PT 17.1 H INR 1.5 APTT 30 pO2 VBG pH VBG pCO2 VBG HCO3 VBG Total CO2 VBG O2 Sat (Calc) VBG Base Excess VBG Potassium Sodium 144 Chloride 104 Glucose Lactate Crit Value Called To Crit Value Called By Crit Value Read Back Blood Gas Notified Time Potassium 4.2 Carbon Dioxide 22 Anion Gap 22 H BUN 59 H Creatinine 2.7 H Est GFR ( Amer) 27 Est GFR (Non-Af Amer) 23 POC Glucose (mg/dL) Random Glucose 103 Calcium 8.2 L Phosphorus Magnesium 2.0 Total Bilirubin 1.7 H AST 40 ALT 15 L Alkaline Phosphatase 62 Total Creatine Kinase 168 CK-MB (Mass) 0.68 Troponin I 0.1050 NT-Pro-B Natriuret Pep 6170 H Total Protein 6.9 Albumin 2.8 L Globulin 4.1 H Albumin/Globulin Ratio 0.7 L TSH 3rd Generation Venous Blood Potassium Urine Color Urine Clarity Urine pH Ur Specific Homer Urine Protein Urine Glucose (UA) Urine Ketones Urine Blood Urine Nitrate Urine Bilirubin Urine Urobilinogen Ur Leukocyte Esterase Urine WBC (Auto) Urine RBC (Auto) Ur Squamous Epith Cells Amorphous Sediment Urine Bacteria Urine Opiates Screen Urine Methadone Screen Ur Barbiturates Screen Valproic Acid < 10.0 L Ur Phencyclidine Scrn Ur Amphetamines Screen U Benzodiazepines Scrn U Oth Cocaine Metabols U Cannabinoids Screen 11/08/17 11/08/17 11/08/17 03:45 04:24 05:17 WBC RBC Hgb Hct MCV MCH MCHC RDW Plt Count MPV Neut % (Auto) Lymph % (Auto) Kendall % (Auto) Eos % (Auto) Baso % (Auto) Neut # (Auto) Lymph # (Auto) Kendall # (Auto) Eos # (Auto) Baso # (Auto) Neutrophils % (Manual) Band Neutrophils % Lymphocytes % (Manual) Reactive Lymphs % Monocytes % (Manual) Metamyelocytes % Platelet Estimate PT INR APTT pO2 21 L VBG pH 7.31 L VBG pCO2 39 L VBG HCO3 18.2 VBG Total CO2 20.8 L VBG O2 Sat (Calc) 37.6 L VBG Base Excess -6.2 L VBG Potassium 3.4 L Sodium 141.0 Chloride 110.0 H Glucose 92 Lactate 5.7 H* Crit Value Called To Cassi rn Crit Value Called By Toño billet recorder Crit Value Read Back Y Blood Gas Notified Time 520 Potassium Carbon Dioxide Anion Gap BUN Creatinine Est GFR ( Amer) Est GFR (Non-Af Amer) POC Glucose (mg/dL) Random Glucose Calcium Phosphorus 3.7 Magnesium Total Bilirubin AST ALT Alkaline Phosphatase Total Creatine Kinase CK-MB (Mass) Troponin I NT-Pro-B Natriuret Pep Total Protein Albumin Globulin Albumin/Globulin Ratio TSH 3rd Generation 3.77 Venous Blood Potassium 3.4 L Urine Color Eleonora Urine Clarity Hazy Urine pH 5.0 Ur Specific Homer 1.018 Urine Protein 2+ H Urine Glucose (UA) Normal Urine Ketones Negative Urine Blood 1+ H Urine Nitrate Negative Urine Bilirubin 1+ H Urine Urobilinogen 4.0 Ur Leukocyte Esterase 1+ H Urine WBC (Auto) 59 H Urine RBC (Auto) 8 H Ur Squamous Epith Cells < 1 Amorphous Sediment Rare H Urine Bacteria Many H Urine Opiates Screen Urine Methadone Screen Ur Barbiturates Screen Valproic Acid Ur Phencyclidine Scrn Ur Amphetamines Screen U Benzodiazepines Scrn U Oth Cocaine Metabols U Cannabinoids Screen 11/08/17 11/08/17 06:43 10:51 WBC 10.1 RBC 3.78 L Hgb 11.6 L Hct 35.3 MCV 93.4 MCH 30.7 MCHC 32.8 L RDW 16.0 H Plt Count 140 MPV 11.0 Neut % (Auto) 94.8 H Lymph % (Auto) 3.9 L Kendall % (Auto) 1.1 Eos % (Auto) 0.1 Baso % (Auto) 0.1 Neut # (Auto) 9.5 H Lymph # (Auto) 0.4 L Kendall # (Auto) 0.1 Eos # (Auto) 0.0 Baso # (Auto) 0.0 Neutrophils % (Manual) Band Neutrophils % Lymphocytes % (Manual) Reactive Lymphs % Monocytes % (Manual) Metamyelocytes % Platelet Estimate PT INR APTT pO2 VBG pH VBG pCO2 VBG HCO3 VBG Total CO2 VBG O2 Sat (Calc) VBG Base Excess VBG Potassium Sodium Chloride Glucose Lactate Crit Value Called To Crit Value Called By Crit Value Read Back Blood Gas Notified Time Potassium Carbon Dioxide Anion Gap BUN Creatinine Est GFR ( Amer) Est GFR (Non-Af Amer) POC Glucose (mg/dL) Random Glucose Calcium Phosphorus Magnesium Total Bilirubin AST ALT Alkaline Phosphatase Total Creatine Kinase CK-MB (Mass) Troponin I NT-Pro-B Natriuret Pep Total Protein Albumin Globulin Albumin/Globulin Ratio TSH 3rd Generation Venous Blood Potassium Urine Color Urine Clarity Urine pH Ur Specific Homer Urine Protein Urine Glucose (UA) Urine Ketones Urine Blood Urine Nitrate Urine Bilirubin Urine Urobilinogen Ur Leukocyte Esterase Urine WBC (Auto) Urine RBC (Auto) Ur Squamous Epith Cells Amorphous Sediment Urine Bacteria Urine Opiates Screen Negative Urine Methadone Screen Negative Ur Barbiturates Screen Negative Valproic Acid Ur Phencyclidine Scrn Negative Ur Amphetamines Screen Negative U Benzodiazepines Scrn Negative U Oth Cocaine Metabols Negative U Cannabinoids Screen Negative
[2017-11-08 11:23] LABS: ALB/GLOB RATIO 0.7 (1.0-2.1); ALBUMIN 2.6 g/dL (3.5-5.0); ALT/SGPT < 6 U/L (21-72); AST/SGOT 66 U/L (17-59); BLOOD UREA NITROGEN 52 mg/dL (9-20); CALCIUM 7.4 mg/dl (8.6-10.4); GFR AFRICAN-AMERICAN 37; GFR NON-AFRICAN AMERICAN 30
--- NOTE | 2017-11-08 11:58 | CP.PCM.CON ---
History of Present Illness - History of Present Illness History of Present Illness: 82 y/o M with PMHx of Bipolar disorder, b/l club foot, poor vision b/l, CKD stage 3, BPH, GERD, HTN, HLD, mixed incontinence, primary open angle glaucoma, and mitral valve insufficiency who was sent from [facility] for altered mental status and weakness. Patient found to be in A fib with RVR. Being treated for sepsis based on AMS, lactic acidosis, leukocytosis ID consulted for antibiotic management Blood c/s so far negative Has abnormal CXR and U/A On IV Zithromax/ Zosyn Allergies: NKDA PMHx: Bipolar disorder, b/l club foot, poor vision b/l, CKD stage 3, BPH, GERD, HTN, HLD, mixed incontinence, primary open angle glaucoma, mitral valve insufficiency Review of Systems - Review of Systems Systems not reviewed;Unavailable: Altered Mental Status - Constitutional Constitutional: Anorexia, Chills, Malaise - EENT Eyes: absent: As Per HPI, Blind Spots, Blurred Vision, Change in Vision, Decreased Night Vision, Diplopia, Discharge, Dry Eye, Exophthalmos, Floaters, Irritation, Itchy Eyes, Loss of Peripheral Vision, Pain, Photophobia, Requires Corrective Lenses, Sees Flashes, Spots in Vision, Tunnel Vision, Other Visual Disturbances, Loss of Vision, Other Ears: absent: As Per HPI, Decreased Hearing, Ear Discharge, Ear Pain, Tinnitus, Abnormal Hearing, Disequilibrium, Dizziness, Other Nose/Mouth/Throat: absent: As Per HPI, Epistaxis, Nasal Congestion, Nasal Discharge, Nasal Obstruction, Nasal Trauma, Nose Pain, Post Nasal Drip, Sinus Pain, Sinus Pressure, Bleeding Gums, Change in Voice, Dental Pain, Dry Mouth, Dysphagia, Halitosis, Hoarsness, Lip Swelling, Mouth Lesions, Mouth Pain, Odynophagia, Sore Throat, Throat Swelling, Tongue Swelling, Facial Pain, Neck Pain, Neck Mass, Other - Cardiovascular Cardiovascular: As Per HPI - Respiratory Respiratory: As Per HPI, Cough. absent: Pain on Inspiration - Gastrointestinal Gastrointestinal: absent: As Per HPI, Abdominal Pain, Belching, Bloating, Change in Bowel Habits, Change in Stool Character, Coffee Ground Emesis, Constipation, Cramping, Diarrhea, Dyspepsia, Dysphagia, Early Satiety, Excessive Flatus, Fecal Incontinence, Heartburn, Hematemesis, Hematochezia, Loose Stools, Melena, Nausea, Odynophagia, Temesmus, Vomiting, Other - Genitourinary Genitourinary: absent: As Per HPI, Change in Urinary Stream, Difficulty Urinating, Dysuria, Flank Pain, Hematuria, Pyuria, Nocturia, Urinary Incontinence, Urinary Frequency, Urinary Hesitance, Urinary Urgency, Voiding Freq/Small Amts, Freq UTI, Hx Renal/Bladder Calculi, Hx /Renal Surgery, Bladder Distension, Other - Musculoskeletal Musculoskeletal: absent: As Per HPI, Abnormal Gait, Arthralgias, Atrophy, Back Pain, Deformity, Joint Swelling, Limited Range of Motion, Loss of Height, Muscle Cramps, Muscle Weakness, Myalgias, Neck Pain, Numbness, Radiating Pain into Limb, Stiffness, Tingling, Other - Integumentary Integumentary: absent: As Per HPI, Acne, Alopecia, Bleeding Lesions, Change in Hair, Change in Nails, Change in Pigmentation, Changing Lesions, Dry Skin, Erythema, Furuncle, Hirsutism, Lesions, New Lesions, Non-Healing Lesions, Photosensitivity, Pruritus, Rash, Skin Pain, Skin Ulcer, Sores, Striae, Swelling , Unusual Bruising, Wounds, Jaundice, Other - Neurological Neurological: As Per HPI - Psychiatric Psychiatric: absent: As Per HPI, Abnormal Sleep Pattern, Anhedonia, Anxiety, Auditory Hallucinations, Behavioral Changes, Change in Appetite, Change in Libido, Confusion, Depression, Difficulty Concentrating, Hallucinations, Homicidal Ideation, Hopelessness, Irritability, Memory Loss, Mood Swings, Panic Attacks, Paranoia, Suicidal Ideation, Visual Hallucinations, Tactile Hallucinations, Other - Endocrine Endocrine: absent: As Per HPI, Change in Body Appearance, Change in Libido, Cold Intolorance, Deepening of Voice, Excessive Sweating, Fatigue, Flushing, Heat Intolorance, Increase in Ring/Shoe/Hat Size, Palpitations, Polydipsia, Polyphagia, Polyuria, Other - Hematologic/Lymphatic Hematologic: absent: As Per HPI, Easy Bleeding, Easy Bruising, Lymphadenopathy, Other Past Patient History - Infectious Disease Hx of Infectious Diseases: None - Past Medical History & Family History Past Medical History?: Yes - Past Social History Smoking Status: Unknown If Ever Smoked - CARDIAC Hx Cardiac Disorders: Yes Hx Hypercholesterolemia: Yes Hx Hypertension: Yes Other/Comment: Acute Ischemic Heart disease - PULMONARY Hx Respiratory Disorders: No - NEUROLOGICAL Hx Neurological Disorder: Yes Hx Vertigo: Yes Other/Comment: Cerebral Infarction - HEENT Hx HEENT Problems: Yes Hx Blind: Yes (L eye) Hx Cataracts: Yes (bilateral) - RENAL Hx Chronic Kidney Disease: Yes - ENDOCRINE/METABOLIC Hx Endocrine Disorders: No - HEMATOLOGICAL/ONCOLOGICAL Hx Blood Disorders: Yes Hx Anemia: Yes - INTEGUMENTARY Hx Dermatological Problems: No - MUSCULOSKELETAL/RHEUMATOLOGICAL Hx Falls: Yes - GASTROINTESTINAL Hx Gastrointestinal Disorders: Yes Hx Gastroesophageal Reflux: Yes - GENITOURINARY/GYNECOLOGICAL Hx Prostate Problems: Yes (enlarged) - PSYCHIATRIC Hx Psychophysiologic Disorder: Yes Hx Bipolar Disorder: Yes - SURGICAL HISTORY Hx Surgeries: No - ANESTHESIA Hx Anesthesia: No Hx Anesthesia Reactions: No (n/a) Meds Allergies/Adverse Reactions: Allergies Allergy/AdvReac Type Severity Reaction Status Date / Time No Known Allergies Allergy Unverified 11/08/17 02:23 - Medications Medications: Current Medications Famotidine (Pepcid) 20 mg IVP DAILY [facility] Last Admin: 11/08/17 10:13 Dose: 20 mg Azithromycin 500 mg/ Sodium (Chloride) 250 mls @ 250 mls/hr IVPB Q24H VANE PRN Reason: Protocol Stop: 11/12/17 09:59 Piperacillin Sod/Tazobactam Sod (Zosyn 2.25 Gm Iv Premix) 2.25 gm in 50 mls @ 100 mls/hr IVPB Q8H VANE PRN Reason: Protocol Sodium Bicarbonate 75 meq/ (Sodium Chloride) 1,075 mls @ 75 mls/hr IV .[id number] [facility] Last Admin: 11/08/17 05:45 Dose: 75 mls/hr Verapamil HCl (Verapamil Inj) 2.5 mg IVP Q12 [facility] Last Admin: 11/08/17 10:13 Dose: 2.5 mg Physical Exam - Constitutional Appears: Confused, Chronically Ill - Head Exam Head Exam: ATRAUMATIC, NORMAL INSPECTION, NORMOCEPHALIC - Eye Exam Eye Exam: PERRL. absent: Scleral icterus - ENT Exam ENT Exam: Mucous Membranes Dry, Normal External Ear Exam - Neck Exam Neck exam: Negative for: Lymphadenopathy - Respiratory Exam Respiratory Exam: Decreased Breath Sounds, Rhonchi - Cardiovascular Exam Cardiovascular Exam: REGULAR RHYTHM, +S1, +S2 - GI/Abdominal Exam GI & Abdominal Exam: Diminished Bowel Sounds, Soft. absent: Tenderness - Rectal Exam Rectal Exam: Deferred - Exam Exam: NORMAL INSPECTION - Extremities Exam Extremities exam: Positive for: pedal pulses present. Negative for: calf tenderness, pedal edema, tenderness - Back Exam Back exam: absent: CVA tenderness (L), CVA tenderness (R), paraspinal tenderness - Neurological Exam Neurological exam: Alert, Altered, CN II-XII Intact - Psychiatric Exam Psychiatric exam: Depressed Results - Vital Signs Recent Vital Signs: Last Vital Signs Temp 97.9 F 11/08/17 07:28 Pulse 127 H 11/08/17 11:00 Resp 20 11/08/17 11:00 BP 96/73 L 11/08/17 10:50 Pulse Ox 91 L 11/08/17 11:00 - Labs Result Diagrams: 11/08/17 10:51 11/08/17 10:51 Labs: Laboratory Results - last 24 hr 11/08/17 11/08/17 11/08/17 02:19 02:29 02:40 WBC 14.0 H RBC 3.79 L Hgb 11.5 L Hct 35.3 MCV 93.1 MCH 30.5 MCHC 32.8 L RDW 15.5 H Plt Count 182 MPV 11.1 Neut % (Auto) 93.1 H Lymph % (Auto) 4.5 L [place] % (Auto) 2.2 Eos % (Auto) 0.0 Baso % (Auto) 0.2 Neut # (Auto) 13.0 H Lymph # (Auto) 0.6 L [place] # (Auto) 0.3 Eos # (Auto) 0.0 Baso # (Auto) 0.0 Neutrophils % (Manual) 25 L Band Neutrophils % 62 H* Lymphocytes % (Manual) 7 L Reactive Lymphs % 1 H Monocytes % (Manual) 4 Metamyelocytes % 1 H Platelet Estimate Normal PT INR APTT pO2 14 L VBG pH 7.31 L VBG pCO2 45 VBG HCO3 19.8 VBG Total CO2 24.1 VBG O2 Sat (Calc) 19.7 L VBG Base Excess -3.7 L VBG Potassium 3.2 L Sodium 142.0 Chloride 105.0 Glucose 106 Lactate 5.5 H* Crit Value Called To Dr dubon Crit Value Called By Soheila humphrey rt Crit Value Read Back Y Blood Gas Notified Time 240 Potassium Carbon Dioxide Anion Gap BUN Creatinine Est GFR ( Amer) Est GFR (Non-Af Amer) POC Glucose (mg/dL) 120 H Random Glucose Calcium Phosphorus Magnesium Total Bilirubin AST ALT Alkaline Phosphatase Total Creatine Kinase CK-MB (Mass) Troponin I NT-Pro-B Natriuret Pep Total Protein Albumin Globulin Albumin/Globulin Ratio TSH 3rd Generation Venous Blood Potassium 3.2 L Urine Color Urine Clarity Urine pH Ur Specific Hildreth Urine Protein Urine Glucose (UA) Urine Ketones Urine Blood Urine Nitrate Urine Bilirubin Urine Urobilinogen Ur Leukocyte Esterase Urine WBC (Auto) Urine RBC (Auto) Ur Squamous Epith Cells Amorphous Sediment Urine Bacteria Urine Opiates Screen Urine Methadone Screen Ur Barbiturates Screen Valproic Acid Ur Phencyclidine Scrn Ur Amphetamines Screen U Benzodiazepines Scrn U Oth Cocaine Metabols U Cannabinoids Screen Influenza Typ A,B (EIA) 11/08/17 11/08/17 11/08/17 02:40 02:40 02:58 WBC RBC Hgb Hct MCV MCH MCHC RDW Plt Count MPV Neut % (Auto) Lymph % (Auto) [place] % (Auto) Eos % (Auto) Baso % (Auto) Neut # (Auto) Lymph # (Auto) [place] # (Auto) Eos # (Auto) Baso # (Auto) Neutrophils % (Manual) Band Neutrophils % Lymphocytes % (Manual) Reactive Lymphs % Monocytes % (Manual) Metamyelocytes % Platelet Estimate PT 17.1 H INR 1.5 APTT 30 pO2 VBG pH VBG pCO2 VBG HCO3 VBG Total CO2 VBG O2 Sat (Calc) VBG Base Excess VBG Potassium Sodium 144 Chloride 104 Glucose Lactate Crit Value Called To Crit Value Called By Crit Value Read Back Blood Gas Notified Time Potassium 4.2 Carbon Dioxide 22 Anion Gap 22 H BUN 59 H Creatinine 2.7 H Est GFR ( Amer) 27 Est GFR (Non-Af Amer) 23 POC Glucose (mg/dL) Random Glucose 103 Calcium 8.2 L Phosphorus Magnesium 2.0 Total Bilirubin 1.7 H AST 40 ALT 15 L Alkaline Phosphatase 62 Total Creatine Kinase 168 CK-MB (Mass) 0.68 Troponin I 0.1050 NT-Pro-B Natriuret Pep 6170 H Total Protein 6.9 Albumin 2.8 L Globulin 4.1 H Albumin/Globulin Ratio 0.7 L TSH 3rd Generation Venous Blood Potassium Urine Color Urine Clarity Urine pH Ur Specific [place]reth Urine Protein Urine Glucose (UA) Urine Ketones Urine Blood Urine Nitrate Urine Bilirubin Urine Urobilinogen Ur Leukocyte Esterase Urine WBC (Auto) Urine RBC (Auto) Ur Squamous Epith Cells Amorphous Sediment Urine Bacteria Urine Opiates Screen Urine Methadone Screen Ur Barbiturates Screen Valproic Acid < 10.0 L Ur Phencyclidine Scrn Ur Amphetamines Screen U Benzodiazepines Scrn U Oth Cocaine Metabols U Cannabinoids Screen Influenza Typ A,B (EIA) 11/08/17 11/08/17 11/08/17 03:45 04:24 05:17 WBC RBC Hgb Hct MCV MCH MCHC RDW Plt Count MPV Neut % (Auto) Lymph % (Auto) [place] % (Auto) Eos % (Auto) Baso % (Auto) Neut # (Auto) Lymph # (Auto) [place] # (Auto) Eos # (Auto) Baso # (Auto) Neutrophils % (Manual) Band Neutrophils % Lymphocytes % (Manual) Reactive Lymphs % Monocytes % (Manual) Metamyelocytes % Platelet Estimate PT INR APTT pO2 21 L VBG pH 7.31 L VBG pCO2 39 L VBG HCO3 18.2 VBG Total CO2 20.8 L VBG O2 Sat (Calc) 37.6 L VBG Base Excess -6.2 L VBG Potassium 3.4 L Sodium 141.0 Chloride 110.0 H Glucose 92 Lactate 5.7 H* Crit Value Called To Cassi rn Crit Value Called By Toño donor relations manager Crit Value Read Back Y Blood Gas Notified Time 520 Potassium Carbon Dioxide Anion Gap BUN Creatinine Est GFR ( Amer) Est GFR (Non-Af Amer) POC Glucose (mg/dL) Random Glucose Calcium Phosphorus 3.7 Magnesium Total Bilirubin AST ALT Alkaline Phosphatase Total Creatine Kinase CK-MB (Mass) Troponin I NT-Pro-B Natriuret Pep Total Protein Albumin Globulin Albumin/Globulin Ratio TSH 3rd Generation 3.77 Venous Blood Potassium 3.4 L Urine Color Eleonora Urine Clarity Hazy Urine pH 5.0 Ur Specific [place] 1.018 Urine Protein 2+ H Urine Glucose (UA) Normal Urine Ketones Negative Urine Blood 1+ H Urine Nitrate Negative Urine Bilirubin 1+ H Urine Urobilinogen 4.0 Ur Leukocyte Esterase 1+ H Urine WBC (Auto) 59 H Urine RBC (Auto) 8 H Ur Squamous Epith Cells < 1 Amorphous Sediment Rare H Urine Bacteria Many H Urine Opiates Screen Urine Methadone Screen Ur Barbiturates Screen Valproic Acid Ur Phencyclidine Scrn Ur Amphetamines Screen U Benzodiazepines Scrn U Oth Cocaine Metabols U Cannabinoids Screen Influenza Typ A,B (EIA) 11/08/17 11/08/17 11/08/17 06:43 08:32 10:51 WBC RBC Hgb Hct MCV MCH MCHC RDW Plt Count MPV Neut % (Auto) Lymph % (Auto) [place] % (Auto) Eos % (Auto) Baso % (Auto) Neut # (Auto) Lymph # (Auto) [place] # (Auto) Eos # (Auto) Baso # (Auto) Neutrophils % (Manual) Band Neutrophils % Lymphocytes % (Manual) Reactive Lymphs % Monocytes % (Manual) Metamyelocytes % Platelet Estimate PT INR APTT pO2 VBG pH VBG pCO2 VBG HCO3 VBG Total CO2 VBG O2 Sat (Calc) VBG Base Excess VBG Potassium Sodium 143 Chloride 107 Glucose Lactate Crit Value Called To Crit Value Called By Crit Value Read Back Blood Gas Notified Time Potassium 4.9 Carbon Dioxide 24 Anion Gap 16 BUN 52 H Creatinine 2.1 H Est GFR ( Amer) 37 Est GFR (Non-Af Amer) 30 POC Glucose (mg/dL) Random Glucose 65 L Calcium 7.4 L Phosphorus 3.1 Magnesium 1.8 Total Bilirubin 1.7 H AST 66 H D ALT < 6 L D Alkaline Phosphatase 79 Total Creatine Kinase CK-MB (Mass) Troponin I 0.4300 H* NT-Pro-B Natriuret Pep Total Protein 6.5 Albumin 2.6 L Globulin 3.9 Albumin/Globulin Ratio 0.7 L TSH 3rd Generation Venous Blood Potassium Urine Color Urine Clarity Urine pH Ur Specific [place] Urine Protein Urine Glucose (UA) Urine Ketones Urine Blood Urine Nitrate Urine Bilirubin Urine Urobilinogen Ur Leukocyte Esterase Urine WBC (Auto) Urine RBC (Auto) Ur Squamous Epith Cells Amorphous Sediment Urine Bacteria Urine Opiates Screen Negative Urine Methadone Screen Negative Ur Barbiturates Screen Negative Valproic Acid Ur Phencyclidine Scrn Negative Ur Amphetamines Screen Negative U Benzodiazepines Scrn Negative U Oth Cocaine Metabols Negative U Cannabinoids Screen Negative Influenza Typ A,B (EIA) Negative for flu a/b 11/08/17 10:51 WBC 10.1 RBC 3.78 L Hgb 11.6 L Hct 35.3 MCV 93.4 MCH 30.7 MCHC 32.8 L RDW 16.0 H Plt Count 140 MPV 11.0 Neut % (Auto) 94.8 H Lymph % (Auto) 3.9 L [place] % (Auto) 1.1 Eos % (Auto) 0.1 Baso % (Auto) 0.1 Neut # (Auto) 9.5 H Lymph # (Auto) 0.4 L [place] # (Auto) 0.1 Eos # (Auto) 0.0 Baso # (Auto) 0.0 Neutrophils % (Manual) Band Neutrophils % Lymphocytes % (Manual) Reactive Lymphs % Monocytes % (Manual) Metamyelocytes % Platelet Estimate PT INR APTT pO2 VBG pH VBG pCO2 VBG HCO3 VBG Total CO2 VBG O2 Sat (Calc) VBG Base Excess VBG Potassium Sodium Chloride Glucose Lactate Crit Value Called To Crit Value Called By Crit Value Read Back Blood Gas Notified Time Potassium Carbon Dioxide Anion Gap BUN Creatinine Est GFR ( Amer) Est GFR (Non-Af Amer) POC Glucose (mg/dL) Random Glucose Calcium Phosphorus Magnesium Total Bilirubin AST ALT Alkaline Phosphatase Total Creatine Kinase CK-MB (Mass) Troponin I NT-Pro-B Natriuret Pep Total Protein Albumin Globulin Albumin/Globulin Ratio TSH 3rd Generation Venous Blood Potassium Urine Color Urine Clarity Urine pH Ur Specific [place] Urine Protein Urine Glucose (UA) Urine Ketones Urine Blood Urine Nitrate Urine Bilirubin Urine Urobilinogen Ur Leukocyte Esterase Urine WBC (Auto) Urine RBC (Auto) Ur Squamous Epith Cells Amorphous Sediment Urine Bacteria Urine Opiates Screen Urine Methadone Screen Ur Barbiturates Screen Valproic Acid Ur Phencyclidine Scrn Ur Amphetamines Screen U Benzodiazepines Scrn U Oth Cocaine Metabols U Cannabinoids Screen Influenza Typ A,B (EIA) Assessment & Plan (1) UTI (urinary tract infection) Status: Acute (2) Pneumonia Status: Acute (3) Altered mental status, unspecified Status: Acute (4) Atrial fibrillation with rapid ventricular response Status: Acute (5) Sepsis Status: Acute - Assessment and Plan (Free Text) Assessment: await cultures and serologies cont iv antibiotics for suspected HCAP/ UTI
[2017-11-08] MEDS: Piperacill/Tazo 2.25gm in Dex 2.25 GM/50 ML BAG IVPB SCH ×2 (12:47→20:45)
[2017-11-08 12:53] LABS: BANDS 42 % (0-2); LYMPHOCYTE 7 % (20-40); MONOCYTE 14 % (0-10); NEUTROPHIL 37 % (50-75); PLATELET ESTIMATE NORMAL (NORMAL); TOTAL CELLS COUNTED 100
[2017-11-08 12:55] LABS: BURR CELLS SLIGHT; HYPOCHROMIC SLIGHT
[2017-11-08 13:02] LABS: LARGE PLATELETS PRESENT; OVALOCYTES SLIGHT
[2017-11-08 13:03] LABS: TOXIC GRANULATION PRESENT
[2017-11-08 13:06] LABS: CREATININE, RANDOM URINE 139.4 mg/dL
--- NOTE | 2017-11-08 13:37 | CP.PCM.CON ---
History of Present Illness - History of Present Illness History of Present Illness: 82 yr old male who has a pmh of htn, hyperlipidemia, bipolar disease, glaucoma with limited vision, CKD stage 3, BPH, GERD, HTN, HLD, mixed incontinence, primary open angle glaucoma, and mitral valve insufficiency who was sent from [facility] for altered mental status and weakness. Patient found to be in A fib with RVR. Patient cardioverted in field but stayed in A. Fib. Neurology consult called for change in mental status, as well as a tiny hemorrhage in the cerebellum, which may or may not be artifact. PMH/PSH: as above. FH/SH: skilled nursing patient. All: nkda On exam: AAOx1. EOMI. I do not appreciate ptosis or nystagmus, or facial droop. His speech is low amplitude, but appropriate and he asks for water. moves all extremities, and cannot see my fingers. +2 dtr ul and ll bl. Toes downgoing no clonus. Gait not tested. no tremors,increased tone throughout. Past Patient History - Infectious Disease Hx of Infectious Diseases: None - Past Medical History & Family History Past Medical History?: Yes - Past Social History Smoking Status: Unknown If Ever Smoked - CARDIAC Hx Cardiac Disorders: Yes Hx Hypercholesterolemia: Yes Hx Hypertension: Yes Other/Comment: Acute Ischemic Heart disease - PULMONARY Hx Respiratory Disorders: No - NEUROLOGICAL Hx Neurological Disorder: Yes Hx Vertigo: Yes Other/Comment: Cerebral Infarction - HEENT Hx HEENT Problems: Yes Hx Blind: Yes (L eye) Hx Cataracts: Yes (bilateral) - RENAL Hx Chronic Kidney Disease: Yes - ENDOCRINE/METABOLIC Hx Endocrine Disorders: No - HEMATOLOGICAL/ONCOLOGICAL Hx Blood Disorders: Yes Hx Anemia: Yes - INTEGUMENTARY Hx Dermatological Problems: No - MUSCULOSKELETAL/RHEUMATOLOGICAL Hx Falls: Yes - GASTROINTESTINAL Hx Gastrointestinal Disorders: Yes Hx Gastroesophageal Reflux: Yes - GENITOURINARY/GYNECOLOGICAL Hx Prostate Problems: Yes (enlarged) - PSYCHIATRIC Hx Psychophysiologic Disorder: Yes Hx Bipolar Disorder: Yes - SURGICAL HISTORY Hx Surgeries: No - ANESTHESIA Hx Anesthesia: No Hx Anesthesia Reactions: No (n/a) Meds Allergies/Adverse Reactions: Allergies Allergy/AdvReac Type Severity Reaction Status Date / Time No Known Allergies Allergy Unverified 11/08/17 02:23 - Medications Medications: Current Medications Famotidine (Pepcid) 20 mg IVP DAILY VANE Last Admin: 11/08/17 10:13 Dose: 20 mg Azithromycin 500 mg/ Sodium (Chloride) 250 mls @ 250 mls/hr IVPB Q24H VANE PRN Reason: Protocol Stop: 11/12/17 09:59 Piperacillin Sod/Tazobactam Sod (Zosyn 2.25 Gm Iv Premix) 2.25 gm in 50 mls @ 100 mls/hr IVPB Q8H VANE PRN Reason: Protocol Last Admin: 11/08/17 12:47 Dose: 100 mls/hr Sodium Bicarbonate 75 meq/ (Sodium Chloride) 1,075 mls @ 75 mls/hr IV .[id number] VANE Last Admin: 11/08/17 05:45 Dose: 75 mls/hr Verapamil HCl (Verapamil Inj) 2.5 mg IVP Q12 VANE Last Admin: 11/08/17 10:13 Dose: 2.5 mg Results - Vital Signs Recent Vital Signs: Last Vital Signs Temp 98 F 11/08/17 12:00 Pulse 124 H 11/08/17 12:00 Resp 19 11/08/17 12:00 BP 109/62 11/08/17 12:00 Pulse Ox 95 11/08/17 12:00 - Labs Result Diagrams: 11/08/17 10:51 11/08/17 10:51 Labs: Laboratory Results - last 24 hr 11/08/17 11/08/17 11/08/17 02:19 02:29 02:40 WBC 14.0 H RBC 3.79 L Hgb 11.5 L Hct 35.3 MCV 93.1 MCH 30.5 MCHC 32.8 L RDW 15.5 H Plt Count 182 MPV 11.1 Neut % (Auto) 93.1 H Lymph % (Auto) 4.5 L [place] % (Auto) 2.2 Eos % (Auto) 0.0 Baso % (Auto) 0.2 Neut # (Auto) 13.0 H Lymph # (Auto) 0.6 L [place] # (Auto) 0.3 Eos # (Auto) 0.0 Baso # (Auto) 0.0 Neutrophils % (Manual) 25 L Band Neutrophils % 62 H* Lymphocytes % (Manual) 7 L Reactive Lymphs % 1 H Monocytes % (Manual) 4 Metamyelocytes % 1 H Toxic Granulation Platelet Estimate Normal Large Platelets Hypochromasia (manual) Ovalocytes [place]mina Cells PT INR APTT pO2 14 L VBG pH 7.31 L VBG pCO2 45 VBG HCO3 19.8 VBG Total CO2 24.1 VBG O2 Sat (Calc) 19.7 L VBG Base Excess -3.7 L VBG Potassium 3.2 L Sodium 142.0 Chloride 105.0 Glucose 106 Lactate 5.5 H* Crit Value Called To Dr dubon Crit Value Called By Soheila humphrey rt Crit Value Read Back Y Blood Gas Notified Time 240 Potassium Carbon Dioxide Anion Gap BUN Creatinine Est GFR ( Amer) Est GFR (Non-Af Amer) POC Glucose (mg/dL) 120 H Random Glucose Calcium Phosphorus Magnesium Total Bilirubin AST ALT Alkaline Phosphatase Total Creatine Kinase CK-MB (Mass) Troponin I NT-Pro-B Natriuret Pep Total Protein Albumin Globulin Albumin/Globulin Ratio TSH 3rd Generation Venous Blood Potassium 3.2 L Urine Color Urine Clarity Urine pH Ur Specific [place] Urine Protein Urine Glucose (UA) Urine Ketones Urine Blood Urine Nitrate Urine Bilirubin Urine Urobilinogen Ur Leukocyte Esterase Urine WBC (Auto) Urine RBC (Auto) Ur Squamous Epith Cells Amorphous Sediment Urine Bacteria Ur Random Creatinine Ur Random Sodium Urine Opiates Screen Urine Methadone Screen Ur Barbiturates Screen Valproic Acid Ur Phencyclidine Scrn Ur Amphetamines Screen U Benzodiazepines Scrn U Oth Cocaine Metabols U Cannabinoids Screen Influenza Typ A,B (EIA) 11/08/17 11/08/17 11/08/17 02:40 02:40 02:58 WBC RBC Hgb Hct MCV MCH MCHC RDW Plt Count MPV Neut % (Auto) Lymph % (Auto) [place] % (Auto) Eos % (Auto) Baso % (Auto) Neut # (Auto) Lymph # (Auto) [place] # (Auto) Eos # (Auto) Baso # (Auto) Neutrophils % (Manual) Band Neutrophils % Lymphocytes % (Manual) Reactive Lymphs % Monocytes % (Manual) Metamyelocytes % Toxic Granulation Platelet Estimate Large Platelets Hypochromasia (manual) Ovalocytes [place] Cells PT 17.1 H INR 1.5 APTT 30 pO2 VBG pH VBG pCO2 VBG HCO3 VBG Total CO2 VBG O2 Sat (Calc) VBG Base Excess VBG Potassium Sodium 144 Chloride 104 Glucose Lactate Crit Value Called To Crit Value Called By Crit Value Read Back Blood Gas Notified Time Potassium 4.2 Carbon Dioxide 22 Anion Gap 22 H BUN 59 H Creatinine 2.7 H Est GFR ( Amer) 27 Est GFR (Non-Af Amer) 23 POC Glucose (mg/dL) Random Glucose 103 Calcium 8.2 L Phosphorus Magnesium 2.0 Total Bilirubin 1.7 H AST 40 ALT 15 L Alkaline Phosphatase 62 Total Creatine Kinase 168 CK-MB (Mass) 0.68 Troponin I 0.1050 NT-Pro-B Natriuret Pep 6170 H Total Protein 6.9 Albumin 2.8 L Globulin 4.1 H Albumin/Globulin Ratio 0.7 L TSH 3rd Generation Venous Blood Potassium Urine Color Urine Clarity Urine pH Ur Specific [place] Urine Protein Urine Glucose (UA) Urine Ketones Urine Blood Urine Nitrate Urine Bilirubin Urine Urobilinogen Ur Leukocyte Esterase Urine WBC (Auto) Urine RBC (Auto) Ur Squamous Epith Cells Amorphous Sediment Urine Bacteria Ur Random Creatinine Ur Random Sodium Urine Opiates Screen Urine Methadone Screen Ur Barbiturates Screen Valproic Acid < 10.0 L Ur Phencyclidine Scrn Ur Amphetamines Screen U Benzodiazepines Scrn U Oth Cocaine Metabols U Cannabinoids Screen Influenza Typ A,B (EIA) 11/08/17 11/08/17 11/08/17 03:45 04:24 05:17 WBC RBC Hgb Hct MCV MCH MCHC RDW Plt Count MPV Neut % (Auto) Lymph % (Auto) [place] % (Auto) Eos % (Auto) Baso % (Auto) Neut # (Auto) Lymph # (Auto) [place] # (Auto) Eos # (Auto) Baso # (Auto) Neutrophils % (Manual) Band Neutrophils % Lymphocytes % (Manual) Reactive Lymphs % Monocytes % (Manual) Metamyelocytes % Toxic Granulation Platelet Estimate Large Platelets Hypochromasia (manual) Ovalocytes [place] Cells PT INR APTT pO2 21 L VBG pH 7.31 L VBG pCO2 39 L VBG HCO3 18.2 VBG Total CO2 20.8 L VBG O2 Sat (Calc) 37.6 L VBG Base Excess -6.2 L VBG Potassium 3.4 L Sodium 141.0 Chloride 110.0 H Glucose 92 Lactate 5.7 H* Crit Value Called To Cassi rn Crit Value Called By Toño garage helper Crit Value Read Back Y Blood Gas Notified Time 520 Potassium Carbon Dioxide Anion Gap BUN Creatinine Est GFR ( Amer) Est GFR (Non-Af Amer) POC Glucose (mg/dL) Random Glucose Calcium Phosphorus 3.7 Magnesium Total Bilirubin AST ALT Alkaline Phosphatase Total Creatine Kinase CK-MB (Mass) Troponin I NT-Pro-B Natriuret Pep Total Protein Albumin Globulin Albumin/Globulin Ratio TSH 3rd Generation 3.77 Venous Blood Potassium 3.4 L Urine Color Eleonora Urine Clarity Hazy Urine pH 5.0 Ur Specific [place] 1.018 Urine Protein 2+ H Urine Glucose (UA) Normal Urine Ketones Negative Urine Blood 1+ H Urine Nitrate Negative Urine Bilirubin 1+ H Urine Urobilinogen 4.0 Ur Leukocyte Esterase 1+ H Urine WBC (Auto) 59 H Urine RBC (Auto) 8 H Ur Squamous Epith Cells < 1 Amorphous Sediment Rare H Urine Bacteria Many H Ur Random Creatinine Ur Random Sodium Urine Opiates Screen Urine Methadone Screen Ur Barbiturates Screen Valproic Acid Ur Phencyclidine Scrn Ur Amphetamines Screen U Benzodiazepines Scrn U Oth Cocaine Metabols U Cannabinoids Screen Influenza Typ A,B (EIA) 11/08/17 11/08/17 11/08/17 06:43 08:32 10:51 WBC RBC Hgb Hct MCV MCH MCHC RDW Plt Count MPV Neut % (Auto) Lymph % (Auto) [place] % (Auto) Eos % (Auto) Baso % (Auto) Neut # (Auto) Lymph # (Auto) [place] # (Auto) Eos # (Auto) Baso # (Auto) Neutrophils % (Manual) Band Neutrophils % Lymphocytes % (Manual) Reactive Lymphs % Monocytes % (Manual) Metamyelocytes % Toxic Granulation Platelet Estimate Large Platelets Hypochromasia (manual) Ovalocytes [place] Cells PT INR APTT pO2 VBG pH VBG pCO2 VBG HCO3 VBG Total CO2 VBG O2 Sat (Calc) VBG Base Excess VBG Potassium Sodium 143 Chloride 107 Glucose Lactate Crit Value Called To Crit Value Called By Crit Value Read Back Blood Gas Notified Time Potassium 4.9 Carbon Dioxide 24 Anion Gap 16 BUN 52 H Creatinine 2.1 H Est GFR ( Amer) 37 Est GFR (Non-Af Amer) 30 POC Glucose (mg/dL) Random Glucose 65 L Calcium 7.4 L Phosphorus 3.1 Magnesium 1.8 Total Bilirubin 1.7 H AST 66 H D ALT < 6 L D Alkaline Phosphatase 79 Total Creatine Kinase CK-MB (Mass) Troponin I 0.4300 H* NT-Pro-B Natriuret Pep Total Protein 6.5 Albumin 2.6 L Globulin 3.9 Albumin/Globulin Ratio 0.7 L TSH 3rd Generation Venous Blood Potassium Urine Color Urine Clarity Urine pH Ur Specific [place] Urine Protein Urine Glucose (UA) Urine Ketones Urine Blood Urine Nitrate Urine Bilirubin Urine Urobilinogen Ur Leukocyte Esterase Urine WBC (Auto) Urine RBC (Auto) Ur Squamous Epith Cells Amorphous Sediment Urine Bacteria Ur Random Creatinine Ur Random Sodium Urine Opiates Screen Negative Urine Methadone Screen Negative Ur Barbiturates Screen Negative Valproic Acid Ur Phencyclidine Scrn Negative Ur Amphetamines Screen Negative U Benzodiazepines Scrn Negative U Oth Cocaine Metabols Negative U Cannabinoids Screen Negative Influenza Typ A,B (EIA) Negative for flu a/b 11/08/17 11/08/17 10:51 12:18 WBC 10.1 RBC 3.78 L Hgb 11.6 L Hct 35.3 MCV 93.4 MCH 30.7 MCHC 32.8 L RDW 16.0 H Plt Count 140 MPV 11.0 Neut % (Auto) 94.8 H Lymph % (Auto) 3.9 L [place] % (Auto) 1.1 Eos % (Auto) 0.1 Baso % (Auto) 0.1 Neut # (Auto) 9.5 H Lymph # (Auto) 0.4 L [place] # (Auto) 0.1 Eos # (Auto) 0.0 Baso # (Auto) 0.0 Neutrophils % (Manual) 37 L Band Neutrophils % 42 H* Lymphocytes % (Manual) 7 L Reactive Lymphs % Monocytes % (Manual) 14 H Metamyelocytes % Toxic Granulation Present Platelet Estimate Normal Large Platelets Present Hypochromasia (manual) Slight Ovalocytes Slight [place]mina Cells Slight PT INR APTT pO2 VBG pH VBG pCO2 VBG HCO3 VBG Total CO2 VBG O2 Sat (Calc) VBG Base Excess VBG Potassium Sodium Chloride Glucose Lactate Crit Value Called To Crit Value Called By Crit Value Read Back Blood Gas Notified Time Potassium Carbon Dioxide Anion Gap BUN Creatinine Est GFR ( Amer) Est GFR (Non-Af Amer) POC Glucose (mg/dL) Random Glucose Calcium Phosphorus Magnesium Total Bilirubin AST ALT Alkaline Phosphatase Total Creatine Kinase CK-MB (Mass) Troponin I NT-Pro-B Natriuret Pep Total Protein Albumin Globulin Albumin/Globulin Ratio TSH 3rd Generation Venous Blood Potassium Urine Color Urine Clarity Urine pH Ur Specific [place] Urine Protein Urine Glucose (UA) Urine Ketones Urine Blood Urine Nitrate Urine Bilirubin Urine Urobilinogen Ur Leukocyte Esterase Urine WBC (Auto) Urine RBC (Auto) Ur Squamous Epith Cells Amorphous Sediment Urine Bacteria Ur Random Creatinine 139.4 Ur Random Sodium 23 Urine Opiates Screen Urine Methadone Screen Ur Barbiturates Screen Valproic Acid Ur Phencyclidine Scrn Ur Amphetamines Screen U Benzodiazepines Scrn U Oth Cocaine Metabols U Cannabinoids Screen Influenza Typ A,B (EIA) - Imaging and Cardiology CT scan - head Status: Image reviewed by me, Report reviewed by me (ct head: severe profound atrophy ) Assessment & Plan - Assessment and Plan (Free Text) Assessment: 82 yr old male with change in mental status that may be secondary to small cerebral hemorrhage, who is at this point, not showing cerebellar dysfunction. However, we will pursue stroke workup. Plan: 1. MRI Brain without contrast 2. Hold all anticoagulants. 3. Carotid Dopplers. Dr. Jefry MD, DPN
--- NOTE | 2017-11-08 13:42 | US ---
PROCEDURE: Ultrasound of the Kidneys HISTORY: renal failure COMPARISON: None available. TECHNIQUE: Grayscale imaging was performed. FINDINGS: RIGHT KIDNEY: Measures: 9.7 cm. Normal in size, contour with diffuse increased echogenicity. No stone, solid mass lesion or hydronephrosis visualized. There is a 1.0 cm simple cyst in the interpolar region. LEFT KIDNEY: Measures: 10.0 cm. Normal in size, contour with diffuse increased echogenicity. No stone, solid mass lesion or hydronephrosis visualized. There is a 1.9 cm simple cyst in the interpolar region. OTHER FINDINGS: None. IMPRESSION: Chronic renal parenchymal disease. No hydronephrosis.
--- NOTE | 2017-11-08 17:56 | CT ---
PROCEDURE: CT HEAD WITHOUT CONTRAST. HISTORY: Left cerebellar hemorrhage. COMPARISON: Comparison made with prior CT scan brain 11/08/2017 at 0535 hours. TECHNIQUE: Axial computed tomography images were obtained through the head/brain without intravenous contrast. Radiation dose: Total exam DLP = 1110.57 mGy-cm. This CT exam was performed using one or more of the following dose reduction techniques: Automated exposure control, adjustment of the mA and/or kV according to patient size, and/or use of iterative reconstruction technique. FINDINGS: HEMORRHAGE: The previously noted tiny hyperdense focus (questionable tiny hemorrhage) within the left medial cerebellar hemisphere is less well seen on this study possibly due to differences in patient positioning and slice placement or possibly some evolution . Note however that differential diagnosis would include a small cavernoma or calcification -mineralization. Clinical correlation recommended. Consider followup MRI of the brain for further evaluation if necessary. . There also appears to be some minor subdural granulation tissue left frontal parietal region. BRAIN: Significant diffuse/confluent chronic periventricular white matter ischemic changes again seen extending peripherally into the deep and subcortical white matter both cerebral hemispheres of. The in addition, there are scattered chronic appearing bilateral basal nuclei lacunar type infarcts. Moderate to significant the volume loss which is somewhat more central evidenced by disproportionate enlargement of the ventricles as compared the sulci. Vascular calcifications both carotid siphons. VENTRICLES: No obstructive hydrocephalus. CALVARIUM: Re- demonstrated are the craniotomy changes left anterior parietal region unchanged PARANASAL SINUSES: Unremarkable as visualized. No significant inflammatory changes. MASTOID AIR CELLS: Unremarkable as visualized. No inflammatory changes. OTHER FINDINGS: None. IMPRESSION: Hemorrhage tiny hyperdense focus (questionable small hemorrhage) within the medial aspect left cerebellar hemisphere is less well seen possibly due to differences patient positioning, and slice placement or possibly evolution in the case of a tiny hemorrhage however differential diagnosis would include a small cavernoma or calcification/mineralization. Clinical correlation recommended. Followup MRI could be performed if necessary. There appears to be some minor left-sided subdural granulation tissue subjacent to the aforementioned craniotomy defect Significant chronic white matter ischemic changes with scattered chronic bilateral basal nuclei lacunar type infarct Moderate to significant volume loss as above.
--- NOTE | 2017-11-08 18:09 | CT ---
PROCEDURE: CT Chest without contrast HISTORY: EVALUATION OF LUNG OPACITY COMPARISON: November 04, 2017. Single-view chest TECHNIQUE: Contiguous axial images were obtained through the chest without intravenous contrast enhancement. Sagittal and coronal reconstructions were performed. Radiation dose (DLP): 215.88 mGy-cm. This CT exam was performed using one or more of the following dose reduction techniques: Automated exposure control, adjustment of the mA and/or kV according to patient size, and/or use of iterative reconstruction technique. FINDINGS: LUNGS: Multiple LV alert masses/confluent densities the largest in the posterior segment right upper lobe. Additional smaller masses noted. The dominant mass 5 x 8.4 cm. The preponderance of additional masses vary between 1 and 3.5 cm. Dependent atelectasis/infiltrates at the lung bases left substantially larger than right. MEDIASTINUM: Unremarkable thoracic aorta. No aneurysm. Normal sized heart. Main pulmonary artery unremarkable. No vascular congestion. No discrete adenopathy. No measurable masses the mediastinum or hilum. Consolidative changes circumferentially invest the left lower lobe bronchus. Differentiating collapse/consolidative lung from potential neoplasm is difficult in the absence of intravenous contrast. PLEURA: No pleural fluid. No pneumothorax. BONES: No fracture. No destructive lesion. UPPER ABDOMEN: Grossly unremarkable. OTHER FINDINGS: None. IMPRESSION: Widespread airspace disease the preponderance of which appear to be pulmonary nodules and masses. The largest of these reside in the right upper lobe and the left lower lobe. Please see report for details and additional information. Neoplasm is the most likely consideration. Multifocal infectious/inflammatory process ease are less likely. Some of the findings conceivably could represent septic emboli although this is also less likely consideration
[2017-11-08] MEDS: Dextrose 5%/0.9% NS 1,000 ML IV SCH (18:11)
--- NOTE | 2017-11-08 19:15 | CP.PCM.PCO ---
Physician Communication Note - Physician Communication Note Physician Communication Note: Dr. Mcginnis will be taking over care of patient as he covers pt PMD
--- NOTE | 2017-11-08 22:14 | CARD ---
APPROVED REPORT EXAM: Two-dimensional and M-mode echocardiogram with Doppler and color Doppler. Other Information Quality : TDSRhythm : INDICATION Atrial Fibrillation Palpitations RISK FACTORS Hypertension Hyperlipidemia 2D DIMENSIONS IVSd1.0 (0.7-1.1cm)LVDd4.1 (3.9-5.9cm) PWd1.0 (0.7-1.1cm)LVDs2.7 (2.5-4.0cm) FS (%) 34.5 %LVEF (%)64.1 (>50%) M-Mode DIMENSIONS Left Atrium (MM)2.63 (2.5-4.0cm)Aortic Root3.29 (2.2-3.7cm) Aortic Cusp Exc.1.46 (1.5-2.0cm) Aortic Valve AI P 1/2 [id number] Mitral Valve MV E Kqtpyktr33.5cm/sE/A ratio0.0 TDI E/Lateral E'0.0E/Medial E'0.0 Tricuspid Valve TR Peak [id number] Peak [id number] LEFT VENTRICLE The left ventricle is normal size. There is normal left ventricular wall thickness. The left ventricular function is normal. The left ventricular ejection fraction is within the normal range. There is normal LV segmental wall motion. RIGHT VENTRICLE The right ventricle is borderline dilated. ATRIA The left atrium size is normal. The right atrium size is normal. AORTIC VALVE The aortic valve is normal in structure. MITRAL VALVE The mitral valve is normal in structure. TRICUSPID VALVE There is mild tricuspid regurgitation. PERICARDIAL EFFUSION There is a small circumferential pericardial effusion. <Conclusion> Technically limited and difficult study. Normal LV systolic function. [place] dilated RV. Mild T R. Small pericardial effusion.
[2017-11-09] MEDS: Piperacill/Tazo 2.25gm in Dex 2.25 GM/50 ML BAG IVPB SCH (04:01)
--- NOTE | 2017-11-09 04:28 | CON ---
DATE: NEPHROLOGY CONSULTATION LOCATION: [facility] (Formerly [facility]). HISTORY OF PRESENT ILLNESS: The patient is an 82-year-old male with past medical history of hypertension, hyperlipidemia, CKD stage III, BPH, GERD, bipolar disorder, mitral insufficiency, sent [facility] for altered mental status. Nephrology is being consulted for acute renal failure. History taken from record and provider that is familiar with the patient as the patient is currently lethargic to give any answers. The patient was found to be in AFib with RVR and subsequently cardioverted but remained in AFib. Per other provider, the patient has been having decreased p.o. intake lately. Otherwise, further review of systems is not obtainable. HOSPITAL COURSE: Pertinent for head CT showing left cerebellar hemorrhage. The patient is being monitored with serial CAT scan. The patient was placed on digoxin for AFib with RVR. The patient has been placed on IV fluids with half normal saline with 1 amp of sodium bicarbonate running as 75 mL per hour; found to have profound lactic acidosis with lactate level of 5.5 on presentation. The patient was also found to be having profound band neutrophils on CBC differential. The patient was started on broad spectrum antibiotics with Zosyn and given dose of vancomycin 1 gm this morning. PAST MEDICAL HISTORY: As above. REVIEW OF SYSTEMS: Unobtainable. FAMILY HISTORY: Unobtainable. SOCIAL HISTORY: Unobtainable. PHYSICAL EXAMINATION: VITAL SIGNS: This evening blood pressure 93/48, heart rate 116, respirations 24, O2 sat 97% via face mask. GENERAL: The patient is lethargic, able to answer some questions. HEENT: No cervical lymphadenopathy. RESPIRATORY: Lungs clear to auscultation bilaterally. Mildly tachypneic. No obvious rales or rhonchi. CARDIOVASCULAR: Heart sounds muffled; otherwise tachycardic. No obvious gallops or rubs. GASTROINTESTINAL: Abdomen is soft, mildly distended. GENITOURINARY: Morales in place. No bladder distention. EXTREMITIES: No leg edema. SKIN: Hands cold to touch. No obvious cyanosis. NEUROLOGIC: The patient is lethargic. PSYCHIATRIC: Not agitated. LABORATORY DATA: From today, CBC, WBC 10.1, hemoglobin 11.6, hematocrit 35.3, platelets 140. Band neutrophils 42%, decreased from 62%. Chemistry panel: Sodium 143; potassium 4.9; chloride 107; bicarbonate 24; BUN 2; creatinine 2.1, decreased from 2.7 on presentation. Glucose 65; lactate 3.0, decreased from 5.5; calcium 7.4; albumin 2.6; magnesium 1.7; phosphorus 3.1; troponin 0.43. Urine studies: UA, 2+ protein, 1+ blood, 59 wbc's, 8 rbc's per high-power field, many bacteria. Urine sodium 23, creatinine 139. Chest x-ray directly visualized showing right lung large opacity. ASSESSMENT AND PLAN: 1. Acute renal failure, acute kidney disease, on chronic kidney disease. Urinalysis consistent with prerenal etiology with renal function improving with intravascular volume repletion. Lactic acidosis is improving and bicarbonate is currently stable. Recommend to discontinue bicarbonate drip and switch to D5 normal saline at 75 mL per hour; blood sugar was low on latest set of labs . 2. Severe sepsis. The patient is currently on broad spectrum antibiotics with Zosyn 2.25 gm q.8 hours dose for advanced renal insufficiency. Received dose of vancomycin earlier today. We will check random vancomycin level with a.m. labs and should dose vancomycin accordingly. 3. Chronic kidney disease III as per record; 2+ proteinuria noted on UA. We will pursue limited serologic workup for etiology of chronic kidney disease. 4. Lactic acidosis, improving, see recommendations above. 5. Hypocalcemia, current calcium 8.5, just at lower limit of normal. No need for replenishment. We will check PTH level and vitamin D 25-hydroxy level. Thank you for this referral. We will be following up closely. Nikunj Tolentino MD
[2017-11-09 05:56] LABS: EOS % 0.1 % (0.0-4.0); HEMOGLOBIN 11.6 g/dL (12.0-18.0); LYMPH # 0.2 K/uL (1.0-4.3); MEAN CELL VOLUME 92.9 fL (80.0-94.0); MEAN CORPUSCULAR HEMOGLOBIN 30.6 pg (27.0-31.0); MEAN PLATELET VOLUME 11.5 fL (7.2-11.7); MONO % 0.3 % (0.0-10.0); NEUT # 9.6 K/uL (1.8-7.0); NEUT % 97.6 % (50.0-75.0); NRBC % 0.1 % (0.0-2.0); PLATELET COUNT 105 K/uL (130-400); RBC 3.78 Mil/uL (4.40-5.90); RED CELL DISTRIBUTION WIDTH 15.9 % (11.5-14.5); WHITE BLOOD COUNT 9.9 K/uL (4.8-10.8)
[2017-11-09 06:15] LABS: ALB/GLOB RATIO 0.7 (1.0-2.1); ALBUMIN 2.4 g/dL (3.5-5.0); CALCIUM 7.5 mg/dl (8.6-10.4)
[2017-11-09 06:17] LABS: TROPONIN I 0.622 ng/mL (0.00-0.120)
[2017-11-09] MEDS: Dextrose 5%/0.9% NS 1,000 ML IV SCH ×3 (06:45→16:00)
[2017-11-09 08:31] LABS: BANDS 59 % (0-2); LYMPHOCYTE 2 % (20-40); MONOCYTE 23 % (0-10); NEUTROPHIL 16 % (50-75); TOTAL CELLS COUNTED 100
[2017-11-09 08:32] LABS: PLATELET ESTIMATE DECREASED (NORMAL)
[2017-11-09 08:33] LABS: ANISOCYTOSIS SLIGHT; BURR CELLS SLIGHT; HYPOCHROMIC SLIGHT; POLYCHROMIC SLIGHT; TARGET CELLS SLIGHT
--- NOTE | 2017-11-09 10:16 | CP.PCM.PN ---
Subjective - Date & Time of Evaluation Date of Evaluation: 11/09/17 Time of Evaluation: 10:15 Objective - Vital Signs/Intake and Output Vital Signs (last 24 hours): Temp Pulse Resp BP Pulse Ox 98.6 F 132 H 21 118/68 96 11/09/17 08:00 11/09/17 09:10 11/09/17 09:10 11/09/17 08:50 11/09/17 08:50 Intake and Output: 11/09/17 11/09/17 06:59 18:59 Intake Total 900 150 Output Total 205 27 Balance 695 123 - Medications Medications: Current Medications Famotidine (Pepcid) 20 mg IVP DAILY VANE Last Admin: 11/08/17 10:13 Dose: 20 mg Azithromycin 500 mg/ Sodium (Chloride) 250 mls @ 250 mls/hr IVPB Q24H VANE PRN Reason: Protocol Stop: 11/12/17 09:59 Piperacillin Sod/Tazobactam Sod (Zosyn 2.25 Gm Iv Premix) 2.25 gm in 50 mls @ 100 mls/hr IVPB Q8H VANE PRN Reason: Protocol Last Admin: 11/09/17 04:01 Dose: 100 mls/hr Dextrose/Sodium Chloride (Dextrose 5%/0.9% Ns 1000 Ml) 1,000 mls @ 75 mls/hr IV .[id number] VANE Last Admin: 11/09/17 06:45 Dose: Not Given Amiodarone HCl 900 mg/ (Dextrose) 500 mls @ 33.33 mls/hr IV .Q15H1M VANE; 1 MG/ MIN PRN Reason: Protocol Stop: 11/09/17 15:16 Potassium Chloride (Potassium Chloride 10 Meq/100 Ml) 10 meq in 100 mls @ 100 mls/hr IVPB ONCE ONE Stop: 11/09/17 10:35 Potassium Chloride (Potassium Chloride 10 Meq/100 Ml) 10 meq in 100 mls @ 100 mls/hr IVPB Q2H VANE Stop: 11/09/17 14:44 Amiodarone HCl 900 mg/ (Dextrose) 500 mls @ 16.66 mls/hr IV .Q24H VANE; 0.5 MG/ MIN PRN Reason: Protocol Stop: 11/10/17 09:17 - Labs Labs: 11/09/17 05:39 11/09/17 05:39 PT 17.1 SECONDS (9.7-12.2) H 11/08/17 02:40 INR 1.5 11/08/17 02:40 APTT 30 SECONDS (21-34) 11/08/17 02:40
[2017-11-09] MEDS: Azithromycin 500 MG in Sodium Chloride 0.9% 250 ML IVPB SCH (10:50)
--- NOTE | 2017-11-09 10:54 | VASCLAB ---
PROCEDURE: Lower Extremity Venous Duplex Exam. HISTORY: eval for danna. lower extremity dvt PRIORS: None. TECHNIQUE: Bilateral common femoral, femoral, popliteal and posterior tibial, peroneal and great saphenous veins were evaluated. Flow was assessed with color Doppler, compressibility, assessment of phasic flow and augmentation response. Report prepared by hybrid technologist. FINDINGS: RIGHT: 1. Common Femoral Vein: 1.1. Compressibility - Fully compressible: Thrombus - None : Flow - Phasic: Augmentation -Normal: Reflux - None. 2. Femoral Vein: 2.1. Compressibility - Fully compressible: Thrombus - None : Flow - Phasic: Augmentation -Normal: Reflux - None. 3. Popliteal Vein: 3.1. Compressibility - Fully compressible: Thrombus - None : Flow - Phasic: Augmentation -Normal: Reflux - None. 4. Posterior Tibial Vein: 4.1. Compressibility - Fully compressible: Thrombus - None: Flow - Phasic: Augmentation -Normal: Reflux - None. 5. Peroneal Vein: 5.1. Compressibility - Fully compressible: Thrombus - None: Flow - Phasic: Augmentation -Normal: Reflux - None. 6. Great Saphenous Vein: Not visualized LEFT: 1. Common Femoral Vein: 1.1. Compressibility - Fully compressible: Thrombus - None: Flow - Phasic: Augmentation -Normal: Reflux - None. 2. Femoral Vein: 2.1. Compressibility - Fully compressible: Thrombus - None: Flow - Phasic: Augmentation -Normal: Reflux - None. 3. Popliteal Vein: 3.1. Compressibility - Fully compressible: Thrombus - None : Flow - Phasic: Augmentation -Normal: Reflux - None. 4. Posterior Tibial Vein: 4.1. Compressibility - Fully compressible: Thrombus - None: Flow - Phasic: Augmentation -Normal: Reflux - None. 5. Peroneal Vein: 5.1. Compressibility - Fully compressible: Thrombus - None: Flow - Phasic: Augmentation -Normal: Reflux - None. 6. Great Saphenous Vein: 6.1. Not visualized OTHER FINDINGS: Technically difficult exam due to patient limited positioning. IMPRESSION: Right: No evidence of deep or superficial vein thrombosis of the right lower extremity. Normal valve function noted of the right side. Left: No evidence of deep or superficial vein thrombosis of the left lower extremity. Normal valve function noted of the left side.
--- NOTE | 2017-11-09 11:07 | CP.PCM.CON ---
<Wilfrid Garza - Last Filed: 11/09/17 13:51> History of Present Illness - History of Present Illness History of Present Illness: PGY2 Cardiology Consult Note for Dr. Soler Patient is an 82 y/o M with PMHx of Bipolar disorder, b/l club foot, poor vision b/l, CKD stage 3, BPH, GERD, HTN, HLD, mixed incontinence, primary open angle glaucoma, and mitral valve insufficiency - who was sent from [facility] for AMS and weakness on 11/08/17. Patient found to be in A fib with RVR. Patient cardioverted in field but stayed in A. Fib. On exam patient is altered. Patient unable to answer questions and is asking for water. ROS unobtainable. Information about PMHx gathered from paperwork from [facility]. Cardiology was consulted for Rapid Afib with RVR. He is also being treated for sepsis, AMS, and lactic acidosis. Patient seen and examined at bedside this AM in the ICU. No acute distress. Patient is on BiPAP and Amiodarone drip. He would track my movements around the bed, however he did not engage in conversation. He did follow commands to raise his L hand / R hand (responded specifically to each command). He would not answer yes/no questioning by blinking his eyes. Further ROS could not be obtained at this time. Allergies: NKDA PMHx: Bipolar disorder, b/l club foot, poor vision b/l, CKD stage 3, BPH, GERD, HTN, HLD, mixed incontinence, primary open angle glaucoma, mitral valve insufficiency Review of Systems - Review of Systems Systems not reviewed;Unavailable: Altered Mental Status Past Patient History - Infectious Disease Hx of Infectious Diseases: None - Past Medical History & Family History Past Medical History?: Yes - Past Social History Smoking Status: Unknown If Ever Smoked - CARDIAC Hx Cardiac Disorders: Yes Hx Hypercholesterolemia: Yes Hx Hypertension: Yes Other/Comment: Acute Ischemic Heart disease - PULMONARY Hx Respiratory Disorders: No - NEUROLOGICAL Hx Neurological Disorder: Yes Hx Vertigo: Yes Other/Comment: Cerebral Infarction - HEENT Hx HEENT Problems: Yes Hx Blind: Yes (L eye) Hx Cataracts: Yes (bilateral) - RENAL Hx Chronic Kidney Disease: Yes - ENDOCRINE/METABOLIC Hx Endocrine Disorders: No - HEMATOLOGICAL/ONCOLOGICAL Hx Blood Disorders: Yes Hx Anemia: Yes - INTEGUMENTARY Hx Dermatological Problems: No - MUSCULOSKELETAL/RHEUMATOLOGICAL Hx Falls: Yes - GASTROINTESTINAL Hx Gastrointestinal Disorders: Yes Hx Gastroesophageal Reflux: Yes - GENITOURINARY/GYNECOLOGICAL Hx Prostate Problems: Yes (enlarged) - PSYCHIATRIC Hx Psychophysiologic Disorder: Yes Hx Bipolar Disorder: Yes - SURGICAL HISTORY Hx Surgeries: No - ANESTHESIA Hx Anesthesia: No Hx Anesthesia Reactions: No (n/a) Meds Allergies/Adverse Reactions: Allergies Allergy/AdvReac Type Severity Reaction Status Date / Time No Known Allergies Allergy Unverified 11/08/17 02:23 - Medications Medications: Current Medications Famotidine (Pepcid) 20 mg IVP DAILY VANE Last Admin: 11/09/17 10:45 Dose: 20 mg Azithromycin 500 mg/ Sodium (Chloride) 250 mls @ 250 mls/hr IVPB Q24H VANE PRN Reason: Protocol Stop: 11/12/17 09:59 Last Admin: 11/09/17 10:50 Dose: 250 mls/hr Dextrose/Sodium Chloride (Dextrose 5%/0.9% Ns 1000 Ml) 1,000 mls @ 75 mls/hr IV .[id number] VANE Last Admin: 11/09/17 06:45 Dose: Not Given Amiodarone HCl 900 mg/ (Dextrose) 500 mls @ 33.33 mls/hr IV .Q15H1M VANE; 1 MG/ MIN PRN Reason: Protocol Stop: 11/09/17 15:16 Last Admin: 11/09/17 10:40 Dose: 33.33 mls/hr Potassium Chloride (Potassium Chloride 10 Meq/100 Ml) 10 meq in 100 mls @ 100 mls/hr IVPB Q2H VANE Stop: 11/09/17 14:44 Last Admin: 11/09/17 10:40 Dose: 100 mls/hr Amiodarone HCl 900 mg/ (Dextrose) 500 mls @ 16.66 mls/hr IV .Q24H VANE; 0.5 MG/ MIN PRN Reason: Protocol Stop: 11/10/17 09:17 Physical Exam - Additional Findings Additional findings: - Constitutional Appears: Toxic, No Acute Distress - Head Exam Head Exam: ATRAUMATIC, NORMAL INSPECTION, NORMOCEPHALIC Additional comments: 3 [place] holes left skull - Eye Exam Eye Exam: EOMI, Normal appearance - ENT Exam ENT Exam: Mucous Membranes Dry - Respiratory Exam Respiratory Exam: Clear to Auscultation Bilateral, NORMAL BREATHING PATTERN. absent: Rhonchi, Wheezes, Respiratory Distress Additional comments: BiPAP - Cardiovascular Exam Cardiovascular Exam: Tachycardia, Irregular Rhythm, +S1, +S2. absent: RRR - GI/Abdominal Exam GI & Abdominal Exam: Normal Bowel Sounds, Soft. absent: Tenderness - Extremities Exam Extremities exam: Positive for: normal inspection Additional comments: b/l club foot - Neurological Exam Neurological exam: Altered -note: however, he would follow simple commands to raise his L arm or R arm ( specifically). he would not answer questions by blinking. - Skin Skin Exam: Intact, Normal Color, Warm Results - Vital Signs Recent Vital Signs: Last Vital Signs Temp 98.6 F 11/09/17 08:00 Pulse 125 H 11/09/17 10:58 Resp 20 11/09/17 10:40 BP 120/78 11/09/17 10:40 Pulse Ox 98 11/09/17 10:40 - Labs Result Diagrams: 11/09/17 05:39 11/09/17 05:39 Labs: Laboratory Results - last 24 hr 11/08/17 11/08/17 11/08/17 08:32 10:51 10:51 WBC RBC Hgb Hct MCV MCH MCHC RDW Plt Count MPV Neut % (Auto) Lymph % (Auto) [place] % (Auto) Eos % (Auto) Baso % (Auto) Neut # (Auto) Lymph # (Auto) [place] # (Auto) Eos # (Auto) Baso # (Auto) Neutrophils % (Manual) Band Neutrophils % Lymphocytes % (Manual) Monocytes % (Manual) Toxic Granulation Platelet Estimate Large Platelets Polychromasia Hypochromasia (manual) Anisocytosis (manual) Target Cells Ovalocytes [place] Cells Sodium 143 Potassium 4.9 Chloride 107 Carbon Dioxide 24 Anion Gap 16 BUN 52 H Creatinine 2.1 H Est GFR ( Amer) 37 Est GFR (Non-Af Amer) 30 Random Glucose 65 L Lactic Acid 3.0 H Calcium 7.4 L Phosphorus 3.1 Magnesium 1.8 Total Bilirubin 1.7 H AST 66 H D ALT < 6 L D Alkaline Phosphatase 79 Troponin I 0.4300 H* Total Protein 6.5 Albumin 2.6 L Globulin 3.9 Albumin/Globulin Ratio 0.7 L Ur Random Creatinine U Random Total Protein Ur Random Sodium Random Vancomycin Influenza Typ A,B (EIA) Negative for flu a/b 11/08/17 11/08/17 11/08/17 10:51 12:18 13:30 WBC 10.1 RBC 3.78 L Hgb 11.6 L Hct 35.3 MCV 93.4 MCH 30.7 MCHC 32.8 L RDW 16.0 H Plt Count 140 MPV 11.0 Neut % (Auto) 94.8 H Lymph % (Auto) 3.9 L [place] % (Auto) 1.1 Eos % (Auto) 0.1 Baso % (Auto) 0.1 Neut # (Auto) 9.5 H Lymph # (Auto) 0.4 L [place] # (Auto) 0.1 Eos # (Auto) 0.0 Baso # (Auto) 0.0 Neutrophils % (Manual) 37 L Band Neutrophils % 42 H* Lymphocytes % (Manual) 7 L Monocytes % (Manual) 14 H Toxic Granulation Present Platelet Estimate Normal Large Platelets Present Polychromasia Hypochromasia (manual) Slight Anisocytosis (manual) Target Cells Ovalocytes Slight [place] Cells Slight Sodium Potassium Chloride Carbon Dioxide Anion Gap BUN Creatinine Est GFR ( Amer) Est GFR (Non-Af Amer) Random Glucose Lactic Acid Calcium Phosphorus Magnesium Total Bilirubin AST ALT Alkaline Phosphatase Troponin I Total Protein Albumin Globulin Albumin/Globulin Ratio Ur Random Creatinine 139.4 U Random Total Protein Cancelled 69.0 H Ur Random Sodium 23 Random Vancomycin Influenza Typ A,B (EIA) 11/09/17 11/09/17 11/09/17 05:39 05:39 05:39 WBC 9.9 RBC 3.78 L Hgb 11.6 L Hct 35.1 MCV 92.9 MCH 30.6 MCHC 33.0 RDW 15.9 H Plt Count 105 L D MPV 11.5 Neut % (Auto) 97.6 H Lymph % (Auto) 2.0 L [place] % (Auto) 0.3 Eos % (Auto) 0.1 Baso % (Auto) 0.0 Neut # (Auto) 9.6 H Lymph # (Auto) 0.2 L [place] # (Auto) 0.0 Eos # (Auto) 0.0 Baso # (Auto) 0.0 Neutrophils % (Manual) 16 L Band Neutrophils % 59 H* Lymphocytes % (Manual) 2 L Monocytes % (Manual) 23 H Toxic Granulation Platelet Estimate Decreased L Large Platelets Polychromasia Slight Hypochromasia (manual) Slight Anisocytosis (manual) Slight Target Cells Slight Ovalocytes [place] Cells Slight Sodium 146 Potassium 3.0 L Chloride 111 H Carbon Dioxide 20 L Anion Gap 17 BUN 51 H Creatinine 2.2 H Est GFR ( Amer) 35 Est GFR (Non-Af Amer) 29 Random Glucose 72 L Lactic Acid Calcium 7.5 L Phosphorus 2.3 L Magnesium 1.8 Total Bilirubin 1.2 AST 55 ALT 28 Alkaline Phosphatase 63 Troponin I 0.6220 H* Total Protein 5.8 L Albumin 2.4 L Globulin 3.4 Albumin/Globulin Ratio 0.7 L Ur Random Creatinine U Random Total Protein Ur Random Sodium Random Vancomycin 12.66 Influenza Typ A,B (EIA) Assessment & Plan - Assessment and Plan (Free Text) Assessment: 82 yr old male with change in mental status that may be secondary to small cerebral hemorrhage, who is at this point, not showing cerebellar dysfunction. However, we will pursue stroke workup. Rapid Atiral Fibrillation with RVR 11/09: Afib possibly 2/2 sepsis. Continue with Amiodarone drip. continue with sepsis management pt also with non-cardiogenic hypotension (likely 2/2 sepsis) trop negative x3 CKMB negative TSH WNL Continue Amio drip BP 118/68 HR fluctuates from 97-132; 115 this AM Echo with EF 64%, dilated RV, small pericardial effusion, mild TR Anticoagulation currently held by primary team 2/2 hemorrhage of L cerebellum Altered Mental Status -patient being worked up for AMS by neurology - CT head with L cerebellar hemorrhage -pending venous dopplers of legs -f/u carotid Doppler -f/u MRI Case Discussed with Dr. Ryder Garza, PGY2 - Date & Time Date: 11/09/17 Time: 11:05 <Andreas Soler - Last Filed: 11/10/17 08:54> Meds - Medications Medications: Current Medications Famotidine (Pepcid) 20 mg IVP DAILY VANE Last Admin: 11/09/17 10:45 Dose: 20 mg Azithromycin 500 mg/ Sodium (Chloride) 250 mls @ 250 mls/hr IVPB Q24H VANE PRN Reason: Protocol Stop: 11/12/17 09:59 Last Admin: 11/09/17 10:50 Dose: 250 mls/hr [place] 1 gm/ Sodium (Chloride) 100 mls @ 100 mls/hr IVPB Q12H VANE PRN Reason: Protocol Last Admin: 11/10/17 02:25 Dose: 100 mls/hr Dextrose/Sodium Chloride (Dextrose 5%/0.9% Ns 1000 Ml) 1,000 mls @ 100 mls/hr IV .Q10H [facility] Results - Vital Signs Recent Vital Signs: Last Vital Signs Temp 98 F 11/10/17 04:00 Pulse 110 H 11/10/17 07:34 Resp 23 11/10/17 07:00 BP 117/65 11/10/17 06:55 Pulse Ox 100 11/10/17 07:00 - Labs Result Diagrams: 11/09/17 05:39 11/10/17 06:24 Labs: Laboratory Results - last 24 hr 11/09/17 11/10/17 11/10/17 18:14 05:37 06:24 Puncture Site Lb L bra pCO2 43 33 L pO2 79 L 126 H HCO3 19.0 L 20.4 L ABG pH 7.26 L 7.36 ABG Total CO2 20.6 L 19.6 L ABG O2 Saturation 97.4 99.5 H ABG Base Excess -7.5 L -5.9 L [place] Test Na A ABG Potassium 3.3 L 4.5 A-a O2 Difference 224.0 261.0 Respiratory Index 2.8 2.1 Sodium 144.0 145.0 148 Chloride 115.0 H 118.0 H 116 H Glucose 106 139 H Lactate 2.2 H 2.0 Vent Mode Bipap Bipap FiO2 50.0 60.0 Inspiratory BiPAP 10 Expiratory BiPAP 5 Potassium 4.7 Carbon Dioxide 20 L Anion Gap 17 BUN 56 H Creatinine 2.8 H Est GFR ( Amer) 26 Est GFR (Non-Af Amer) 22 Random Glucose 116 H Calcium 7.1 L Phosphorus 2.9 Magnesium 1.8 Total Bilirubin 1.2 AST 49 ALT 27 Alkaline Phosphatase 73 Total Protein 5.3 L Albumin 2.0 L Globulin 3.3 Albumin/Globulin Ratio 0.6 L Arterial Blood Potassium 3.3 L 4.5 Assessment & Plan - Assessment and Plan (Free Text) Plan: Patient personally seen and examined the patient. Plan of care as documented
--- NOTE | 2017-11-09 11:17 | CP.CCUPN ---
<Maile Jones - Last Filed: 11/09/17 13:27> CCU Subjective - Physician Review Subjective (Free Text): 11/09/17 11:16 Patient seen and examined at bedside. Patient currently is on bipap. Patient with sepsis likely 2/2 to UTI. Less alert today, not answering questions appropriately. ROS not obtained. CCU Objective - Vital Signs / Intake & Output Vital Signs (Last 4 hours): Vital Signs Temp Pulse Resp BP Pulse Ox 11/09/17 10:58 125 H 11/09/17 10:40 138 H 20 120/78 98 11/09/17 10:00 140 H 21 118/78 98 11/09/17 09:10 132 H 21 11/09/17 09:00 130 H 24 11/09/17 08:50 132 H 25 H 118/68 96 11/09/17 08:40 120 H 24 96 11/09/17 08:30 127 H 27 H 96 11/09/17 08:20 124 H 24 94 L 11/09/17 08:10 126 H 23 96 11/09/17 08:00 98.6 F 131 H 24 96 11/09/17 07:50 122 H 24 131/65 96 11/09/17 07:40 130 H 23 90 L 11/09/17 07:26 126 H Intake and Output (Last 8hrs): Intake & Output 11/08/17 11/09/17 11/09/17 22:59 06:59 14:59 Intake Total 600 600 150 Output Total 205 130 27 Balance 395 470 123 Weight 44.361 kg Intake: Intake, IV Amount 600 600 150 Left Hand 600 600 150 Oral 0 0 0 Output: Urine 205 130 27 Urethral (Morales) 205 130 27 Other: # Bowel Movements 0 0 1 - Physical Exam Other physical findings (Free Text): - Head Exam Additional comments: 3 salina holes left frontal skull - Eye Exam Eye Exam: EOMI - ENT Exam ENT Exam: Mucous Membranes Dry - Neck Exam Neck exam: Positive for: Normal Inspection - Respiratory Exam Respiratory Exam: Clear to Auscultation Bilateral, Respiratory Distress. absent : Rales, Rhonchi, Wheezes - Cardiovascular Exam Cardiovascular Exam: Tachycardia, +S1, +S2, Irregular rhythm - GI/Abdominal Exam GI & Abdominal Exam: Normal Bowel Sounds, Soft, Non-tender to palpation - Extremities Exam Extremities exam: Positive for: pedal edema - Neurological Exam Neurological exam: :Lethargic - Medications Active Medications: Active Medications Generic Name Dose Route Start Last Admin Trade Name Tejq PRN Reason Stop Dose Admin Famotidine 20 mg 11/08/17 10:00 11/09/17 10:45 Pepcid IVP 20 mg DAILY VANE Administration Azithromycin 500 mg/ Sodium 250 mls @ 250 mls/hr 11/09/17 09:00 11/09/17 10: 50 Chloride IVPB 11/12/17 09:59 250 mls/hr Q24H VANE Administration Protocol Dextrose/Sodium Chloride 1,000 mls @ 75 mls/hr 11/08/17 17:45 11/09/17 06:45 Dextrose 5%/0.9% Ns 1000 Ml IV Not Given .[id number] VANE Amiodarone HCl 900 mg/ 500 mls @ 33.33 mls/hr 11/09/17 09:15 11/09/17 10:40 Dextrose IV 11/09/17 15:16 33.33 mls/hr .Q15H1M VANE Administration Protocol 1 MG/MIN Potassium Chloride 10 meq in 100 mls @ 100 mls/hr 11/09/17 09:45 11/09/17 10: 40 Potassium Chloride 10 Meq/100 Ml IVPB 11/09/17 14:44 100 mls/hr Q2H VANE Administration Amiodarone HCl 900 mg/ 500 mls @ 16.66 mls/hr 11/09/17 15:17 Dextrose IV 11/10/17 09:17 .Q24H VANE Protocol 0.5 MG/MIN Meropenem 1 gm/ Sodium 100 mls @ 100 mls/hr 11/09/17 14:00 Chloride IVPB Q8 VANE Protocol - Patient Studies Lab Studies: Microbiology Studies 11/08/17 02:27 Urine Culture - Preliminary Urine Gram Negative Jean 11/08/17 02:27 Blood Culture - Preliminary Blood Gram Negative Jean Gram Stain - Final 11/08/17 02:27 Blood Culture - Preliminary Blood Gram Negative Jean Gram Stain - Final Lab Studies 11/09/17 11/09/17 11/09/17 Range/Units 05:39 05:39 05:39 WBC 9.9 (4.8-10.8) K/uL RBC 3.78 L (4.40-5.90) Mil/uL Hgb 11.6 L (12.0-18.0) g/dL Hct 35.1 (35.0-51.0) % MCV 92.9 (80.0-94.0) fL MCH 30.6 (27.0-31.0) pg MCHC 33.0 (33.0-37.0) g/dL RDW 15.9 H (11.5-14.5) % Plt Count 105 L D (130-400) K/uL MPV 11.5 (7.2-11.7) fL Neut % (Auto) 97.6 H (50.0-75.0) % Lymph % (Auto) 2.0 L (20.0-40.0) % Franklin % (Auto) 0.3 (0.0-10.0) % Eos % (Auto) 0.1 (0.0-4.0) % Baso % (Auto) 0.0 (0.0-2.0) % Neut # (Auto) 9.6 H (1.8-7.0) K/uL Lymph # (Auto) 0.2 L (1.0-4.3) K/uL Franklin # (Auto) 0.0 (0.0-0.8) K/uL Eos # (Auto) 0.0 (0.0-0.7) K/uL Baso # (Auto) 0.0 (0.0-0.2) K/uL Neutrophils % (Manual) 16 L (50-75) % Band Neutrophils % 59 H* (0-2) % Lymphocytes % (Manual) 2 L (20-40) % Monocytes % (Manual) 23 H (0-10) % Toxic Granulation Platelet Estimate Decreased L (NORMAL) Large Platelets Polychromasia Slight Hypochromasia (manual) Slight Anisocytosis (manual) Slight Target Cells Slight Ovalocytes Elsie Cells Slight Sodium 146 (132-148) mmol/L Potassium 3.0 L (3.6-5.2) mmol/L Chloride 111 H (98-107) mmol/L Carbon Dioxide 20 L (22-30) mmol/L Anion Gap 17 (10-20) BUN 51 H (9-20) mg/dL Creatinine 2.2 H (0.8-1.5) mg/dL Est GFR ( Amer) 35 Est GFR (Non-Af Amer) 29 Random Glucose 72 L (75-110) mg/dL Lactic Acid (0.7-2.1) mmol/L Calcium 7.5 L (8.6-10.4) mg/dl Phosphorus 2.3 L (2.5-4.5) mg/dL Magnesium 1.8 (1.6-2.3) mg/dL Total Bilirubin 1.2 (0.2-1.3) mg/dL AST 55 (17-59) U/L ALT 28 (21-72) U/L Alkaline Phosphatase 63 (38-126) U/L Troponin I 0.6220 H* (0.00-0.120) ng/mL Total Protein 5.8 L (6.3-8.3) g/dL Albumin 2.4 L (3.5-5.0) g/dL Globulin 3.4 (2.2-3.9) gm/dL Albumin/Globulin Ratio 0.7 L (1.0-2.1) Ur Random Creatinine mg/dL U Random Total Protein Ur Random Sodium mmol/L Random Vancomycin 12.66 ug/mL Influenza Typ A,B (EIA) (NEGATIVE) 11/08/17 11/08/17 11/08/17 Range/Units 13:30 12:18 10:51 WBC (4.8-10.8) K/uL RBC (4.40-5.90) Mil/uL Hgb (12.0-18.0) g/dL Hct (35.0-51.0) % MCV (80.0-94.0) fL MCH (27.0-31.0) pg MCHC (33.0-37.0) g/dL RDW (11.5-14.5) % Plt Count (130-400) K/uL MPV (7.2-11.7) fL Neut % (Auto) (50.0-75.0) % Lymph % (Auto) (20.0-40.0) % Franklin % (Auto) (0.0-10.0) % Eos % (Auto) (0.0-4.0) % Baso % (Auto) (0.0-2.0) % Neut # (Auto) (1.8-7.0) K/uL Lymph # (Auto) (1.0-4.3) K/uL Franklin # (Auto) (0.0-0.8) K/uL Eos # (Auto) (0.0-0.7) K/uL Baso # (Auto) (0.0-0.2) K/uL Neutrophils % (Manual) 37 L (50-75) % Band Neutrophils % 42 H* (0-2) % Lymphocytes % (Manual) 7 L (20-40) % Monocytes % (Manual) 14 H (0-10) % Toxic Granulation Present Platelet Estimate Normal (NORMAL) Large Platelets Present Polychromasia Hypochromasia (manual) Slight Anisocytosis (manual) Target Cells Ovalocytes Slight Elsie Cells Slight Sodium (132-148) mmol/L Potassium (3.6-5.2) mmol/L Chloride (98-107) mmol/L Carbon Dioxide (22-30) mmol/L Anion Gap (10-20) BUN (9-20) mg/dL Creatinine (0.8-1.5) mg/dL Est GFR ( Amer) Est GFR (Non-Af Amer) Random Glucose (75-110) mg/dL Lactic Acid (0.7-2.1) mmol/L Calcium (8.6-10.4) mg/dl Phosphorus (2.5-4.5) mg/dL Magnesium (1.6-2.3) mg/dL Total Bilirubin (0.2-1.3) mg/dL AST (17-59) U/L ALT (21-72) U/L Alkaline Phosphatase (38-126) U/L Troponin I (0.00-0.120) ng/mL Total Protein (6.3-8.3) g/dL Albumin (3.5-5.0) g/dL Globulin (2.2-3.9) gm/dL Albumin/Globulin Ratio (1.0-2.1) Ur Random Creatinine 139.4 mg/dL U Random Total Protein 69.0 H Cancelled Ur Random Sodium 23 mmol/L Random Vancomycin ug/mL Influenza Typ A,B (EIA) (NEGATIVE) 11/08/17 11/08/17 11/08/17 Range/Units 10:51 10:51 08:32 WBC (4.8-10.8) K/uL RBC (4.40-5.90) Mil/uL Hgb (12.0-18.0) g/dL Hct (35.0-51.0) % MCV (80.0-94.0) fL MCH (27.0-31.0) pg MCHC (33.0-37.0) g/dL RDW (11.5-14.5) % Plt Count (130-400) K/uL MPV (7.2-11.7) fL Neut % (Auto) (50.0-75.0) % Lymph % (Auto) (20.0-40.0) % Franklin % (Auto) (0.0-10.0) % Eos % (Auto) (0.0-4.0) % Baso % (Auto) (0.0-2.0) % Neut # (Auto) (1.8-7.0) K/uL Lymph # (Auto) (1.0-4.3) K/uL Franklin # (Auto) (0.0-0.8) K/uL Eos # (Auto) (0.0-0.7) K/uL Baso # (Auto) (0.0-0.2) K/uL Neutrophils % (Manual) (50-75) % Band Neutrophils % (0-2) % Lymphocytes % (Manual) (20-40) % Monocytes % (Manual) (0-10) % Toxic Granulation Platelet Estimate (NORMAL) Large Platelets Polychromasia Hypochromasia (manual) Anisocytosis (manual) Target Cells Ovalocytes Salina Cells Sodium 143 (132-148) mmol/L Potassium 4.9 (3.6-5.2) mmol/L Chloride 107 (98-107) mmol/L Carbon Dioxide 24 (22-30) mmol/L Anion Gap 16 (10-20) BUN 52 H (9-20) mg/dL Creatinine 2.1 H (0.8-1.5) mg/dL Est GFR ( Amer) 37 Est GFR (Non-Af Amer) 30 Random Glucose 65 L (75-110) mg/dL Lactic Acid 3.0 H (0.7-2.1) mmol/L Calcium 7.4 L (8.6-10.4) mg/dl Phosphorus 3.1 (2.5-4.5) mg/dL Magnesium 1.8 (1.6-2.3) mg/dL Total Bilirubin 1.7 H (0.2-1.3) mg/dL AST 66 H D (17-59) U/L ALT < 6 L D (21-72) U/L Alkaline Phosphatase 79 (38-126) U/L Troponin I 0.4300 H* (0.00-0.120) ng/mL Total Protein 6.5 (6.3-8.3) g/dL Albumin 2.6 L (3.5-5.0) g/dL Globulin 3.9 (2.2-3.9) gm/dL Albumin/Globulin Ratio 0.7 L (1.0-2.1) Ur Random Creatinine mg/dL U Random Total Protein Ur Random Sodium mmol/L Random Vancomycin ug/mL Influenza Typ A,B (EIA) Negative for flu a/b (NEGATIVE) Laboratory Results - last 24 hr 11/08/17 11/08/17 11/08/17 08:32 10:51 10:51 WBC RBC Hgb Hct MCV MCH MCHC RDW Plt Count MPV Neut % (Auto) Lymph % (Auto) Franklin % (Auto) Eos % (Auto) Baso % (Auto) Neut # (Auto) Lymph # (Auto) Franklin # (Auto) Eos # (Auto) Baso # (Auto) Neutrophils % (Manual) Band Neutrophils % Lymphocytes % (Manual) Monocytes % (Manual) Toxic Granulation Platelet Estimate Large Platelets Polychromasia Hypochromasia (manual) Anisocytosis (manual) Target Cells Ovalocytes Salina Cells Sodium 143 Potassium 4.9 Chloride 107 Carbon Dioxide 24 Anion Gap 16 BUN 52 H Creatinine 2.1 H Est GFR ( Amer) 37 Est GFR (Non-Af Amer) 30 Random Glucose 65 L Lactic Acid 3.0 H Calcium 7.4 L Phosphorus 3.1 Magnesium 1.8 Total Bilirubin 1.7 H AST 66 H D ALT < 6 L D Alkaline Phosphatase 79 Troponin I 0.4300 H* Total Protein 6.5 Albumin 2.6 L Globulin 3.9 Albumin/Globulin Ratio 0.7 L Ur Random Creatinine U Random Total Protein Ur Random Sodium Random Vancomycin Influenza Typ A,B (EIA) Negative for flu a/b 11/08/17 11/08/17 11/08/17 10:51 12:18 13:30 WBC RBC Hgb Hct MCV MCH MCHC RDW Plt Count MPV Neut % (Auto) Lymph % (Auto) Franklin % (Auto) Eos % (Auto) Baso % (Auto) Neut # (Auto) Lymph # (Auto) Franklin # (Auto) Eos # (Auto) Baso # (Auto) Neutrophils % (Manual) 37 L Band Neutrophils % 42 H* Lymphocytes % (Manual) 7 L Monocytes % (Manual) 14 H Toxic Granulation Present Platelet Estimate Normal Large Platelets Present Polychromasia Hypochromasia (manual) Slight Anisocytosis (manual) Target Cells Ovalocytes Slight Elsie Cells Slight Sodium Potassium Chloride Carbon Dioxide Anion Gap BUN Creatinine Est GFR ( Amer) Est GFR (Non-Af Amer) Random Glucose Lactic Acid Calcium Phosphorus Magnesium Total Bilirubin AST ALT Alkaline Phosphatase Troponin I Total Protein Albumin Globulin Albumin/Globulin Ratio Ur Random Creatinine 139.4 U Random Total Protein Cancelled 69.0 H Ur Random Sodium 23 Random Vancomycin Influenza Typ A,B (EIA) 11/09/17 11/09/17 11/09/17 05:39 05:39 05:39 WBC 9.9 RBC 3.78 L Hgb 11.6 L Hct 35.1 MCV 92.9 MCH 30.6 MCHC 33.0 RDW 15.9 H Plt Count 105 L D MPV 11.5 Neut % (Auto) 97.6 H Lymph % (Auto) 2.0 L Franklin % (Auto) 0.3 Eos % (Auto) 0.1 Baso % (Auto) 0.0 Neut # (Auto) 9.6 H Lymph # (Auto) 0.2 L Franklin # (Auto) 0.0 Eos # (Auto) 0.0 Baso # (Auto) 0.0 Neutrophils % (Manual) 16 L Band Neutrophils % 59 H* Lymphocytes % (Manual) 2 L Monocytes % (Manual) 23 H Toxic Granulation Platelet Estimate Decreased L Large Platelets Polychromasia Slight Hypochromasia (manual) Slight Anisocytosis (manual) Slight Target Cells Slight Ovalocytes Elsie Cells Slight Sodium 146 Potassium 3.0 L Chloride 111 H Carbon Dioxide 20 L Anion Gap 17 BUN 51 H Creatinine 2.2 H Est GFR ( Amer) 35 Est GFR (Non-Af Amer) 29 Random Glucose 72 L Lactic Acid Calcium 7.5 L Phosphorus 2.3 L Magnesium 1.8 Total Bilirubin 1.2 AST 55 ALT 28 Alkaline Phosphatase 63 Troponin I 0.6220 H* Total Protein 5.8 L Albumin 2.4 L Globulin 3.4 Albumin/Globulin Ratio 0.7 L Ur Random Creatinine U Random Total Protein Ur Random Sodium Random Vancomycin 12.66 Influenza Typ A,B (EIA) Assessment/Plan - Assessment and Plan (Free Text) Assessment: Patient is a 82 year old male with past medical history of HTN, BPH, incontinence, mitral valve insufficiency, aggressive behavior, who presented with new onset paroxysmal afib, sepsis from [facility]. Admitted to the ICU for closer monitoring. Neurology: -Patient is lethargic today, not answering questions appropriately -Currently on Bipap -CT head on admission showed possible medial left cerebellar hemorrhage -Repeat Head CT showed no changed -Neurology on consult, Dr Capps, help appreciated -Neurosurgery: Tiny area of inc attenuation in medial L cerebellum of no clinical concern, No neurosurgical involvement necessary -Patient is still full-code, patient with poor prognosis -Palliative care on consult Cardiology: -Patient is in atrial fibrillation with RVR -Troponin 0.1050 -> 0.430 -> 0.622 -Patient given amiodarone bolus, started on Amiodarone drip -Digoxin prn -No anticoagulation at this time -Echo showed normal LV systolic function. Borderline dilated RV. Small pericardial effusion -Cardiology, Dr Soler on consult, help appreciated -Lower extremity dopplers negative for DVT bilaterally Respiratory: -CT chest showed widespread airspace disease the preponderance of which appears to be pulmonary nodules and masses. Largest in RUL/LLL. -Continue bipap prn -Sputum cultures pending -Pulmonary on consult, Dr Lopez, help appreciated Renal: -Potassium 3.0 today -Kcl 10meq x 4 doses ordered -Repeat CMP for 3pm -Patient with history of chronic kidney disease stage 3 -Continue D5/NS at 75ml/hr -Morales in, strict I/Os -Nephrology on consult, Dr Tolentino, help appreciated GI: -Patient did not pass bedside nursing swallow eval -Diet: NPO -Plan to start TPN -Will need PICC line Infectious Disease: -Worsening Bandemia 59 today -Poor venous access, will need PICC line -Blood cultures growing gram negative rods x 2 -Urine cultures growing gram negative rods -Awaiting culture sensitivities -Gentamicin 80mg IV x 1 dose ordered -Antibiotics: Merrem 1gm Q12H, Azithromycin 500mg IV Q24H -ID on consult, Dr Barakat, help appreciated GI/DVT ppx: -Pepcid 20mg IVP daily -SCDs Plan discussed with Dr Lopez <Asher Lopez - Last Filed: 11/09/17 17:37> CCU Objective - Vital Signs / Intake & Output Vital Signs (Last 4 hours): Vital Signs Temp Pulse Resp BP Pulse Ox 11/09/17 16:46 108 H 20 105/60 94 L 11/09/17 16:34 98.2 F 107 H 21 117/66 94 L 11/09/17 16:30 106 H 23 96 11/09/17 16:20 105 H 23 95 11/09/17 16:10 106 H 21 94 L 11/09/17 16:00 98.3 F 107 H 22 110/66 95 11/09/17 15:50 108 H 23 105/60 11/09/17 15:40 103 H 23 96 11/09/17 15:30 103 H 22 96 11/09/17 15:20 103 H 23 96 11/09/17 15:10 111 H 24 96 11/09/17 15:00 107 H 23 96 11/09/17 14:50 107 H 22 103/50 L 97 11/09/17 14:49 107 H 26 H 103/52 L 97 11/09/17 14:40 109 H 20 98 11/09/17 14:30 111 H 21 97 11/09/17 14:20 112 H 20 11/09/17 14:10 110 H 23 99 11/09/17 14:00 109 H 23 98 11/09/17 13:50 108 H 20 88/54 L 98 11/09/17 13:40 107 H 25 H 91 L Intake and Output (Last 8hrs): Intake & Output 11/09/17 11/09/17 11/09/17 06:59 14:59 22:59 Intake Total 600 2091.6 300 Output Total 130 117 88 Balance 470 1974.6 212 Weight 97 lb 12.8 oz Intake: Intake, IV Amount 600 2091.6 300 Left Hand 600 675 300 Right Antecubital 1416.6 Oral 0 0 0 Output: Urine 130 117 88 Urethral (Morales) 130 117 88 Other: # Bowel Movements 0 1 - Medications Active Medications: Active Medications Generic Name Dose Route Start Last Admin Trade Name Christian PRN Reason Stop Dose Admin Famotidine 20 mg 11/08/17 10:00 11/09/17 10:45 Pepcid IVP 20 mg DAILY VANE Administration Azithromycin 500 mg/ Sodium 250 mls @ 250 mls/hr 11/09/17 09:00 11/09/17 10: 50 Chloride IVPB 11/12/17 09:59 250 mls/hr Q24H VANE Administration Protocol Meropenem 1 gm/ Sodium 100 mls @ 100 mls/hr 11/09/17 14:00 11/09/17 14:02 Chloride IVPB 100 mls/hr Q12H VANE Administration Protocol Dextrose/Sodium Chloride 1,000 mls @ 100 mls/hr 11/09/17 13:06 11/09/17 14:05 Dextrose 5%/0.9% Ns 1000 Ml IV Not Given .Q10H VANE - Patient Studies Lab Studies: Microbiology Studies 11/08/17 00:05 MRSA Culture (Admit) - Final Naris MRSA DETECTED 11/08/17 07:30 Gram Stain - Final Sputum 11/08/17 02:27 Urine Culture - Preliminary Urine Gram Negative Jean 11/08/17 02:27 Blood Culture - Preliminary Blood Gram Negative Jean Gram Stain - Final 11/08/17 02:27 Blood Culture - Preliminary Blood Gram Negative Jean Gram Stain - Final Lab Studies 11/09/17 11/09/17 11/09/17 Range/Units 05:39 05:39 05:39 WBC 9.9 (4.8-10.8) K/uL RBC 3.78 L (4.40-5.90) Mil/uL Hgb 11.6 L (12.0-18.0) g/dL Hct 35.1 (35.0-51.0) % MCV 92.9 (80.0-94.0) fL MCH 30.6 (27.0-31.0) pg MCHC 33.0 (33.0-37.0) g/dL RDW 15.9 H (11.5-14.5) % Plt Count 105 L D (130-400) K/uL MPV 11.5 (7.2-11.7) fL Neut % (Auto) 97.6 H (50.0-75.0) % Lymph % (Auto) 2.0 L (20.0-40.0) % Franklin % (Auto) 0.3 (0.0-10.0) % Eos % (Auto) 0.1 (0.0-4.0) % Baso % (Auto) 0.0 (0.0-2.0) % Neut # (Auto) 9.6 H (1.8-7.0) K/uL Lymph # (Auto) 0.2 L (1.0-4.3) K/uL Franklin # (Auto) 0.0 (0.0-0.8) K/uL Eos # (Auto) 0.0 (0.0-0.7) K/uL Baso # (Auto) 0.0 (0.0-0.2) K/uL Neutrophils % (Manual) 16 L (50-75) % Band Neutrophils % 59 H* (0-2) % Lymphocytes % (Manual) 2 L (20-40) % Monocytes % (Manual) 23 H (0-10) % Platelet Estimate Decreased L (NORMAL) Polychromasia Slight Hypochromasia (manual) Slight Anisocytosis (manual) Slight Target Cells Slight Salina Cells Slight Sodium 146 (132-148) mmol/L Potassium 3.0 L (3.6-5.2) mmol/L Chloride 111 H (98-107) mmol/L Carbon Dioxide 20 L (22-30) mmol/L Anion Gap 17 (10-20) BUN 51 H (9-20) mg/dL Creatinine 2.2 H (0.8-1.5) mg/dL Est GFR ( Amer) 35 Est GFR (Non-Af Amer) 29 Random Glucose 72 L (75-110) mg/dL Calcium 7.5 L (8.6-10.4) mg/dl Phosphorus 2.3 L (2.5-4.5) mg/dL Magnesium 1.8 (1.6-2.3) mg/dL Total Bilirubin 1.2 (0.2-1.3) mg/dL AST 55 (17-59) U/L ALT 28 (21-72) U/L Alkaline Phosphatase 63 (38-126) U/L Troponin I 0.6220 H* (0.00-0.120) ng/mL Total Protein 5.8 L (6.3-8.3) g/dL Albumin 2.4 L (3.5-5.0) g/dL Globulin 3.4 (2.2-3.9) gm/dL Albumin/Globulin Ratio 0.7 L (1.0-2.1) Random Vancomycin 12.66 ug/mL Laboratory Results - last 24 hr 11/09/17 11/09/17 11/09/17 05:39 05:39 05:39 WBC 9.9 RBC 3.78 L Hgb 11.6 L Hct 35.1 MCV 92.9 MCH 30.6 MCHC 33.0 RDW 15.9 H Plt Count 105 L D MPV 11.5 Neut % (Auto) 97.6 H Lymph % (Auto) 2.0 L Franklin % (Auto) 0.3 Eos % (Auto) 0.1 Baso % (Auto) 0.0 Neut # (Auto) 9.6 H Lymph # (Auto) 0.2 L Franklin # (Auto) 0.0 Eos # (Auto) 0.0 Baso # (Auto) 0.0 Neutrophils % (Manual) 16 L Band Neutrophils % 59 H* Lymphocytes % (Manual) 2 L Monocytes % (Manual) 23 H Platelet Estimate Decreased L Polychromasia Slight Hypochromasia (manual) Slight Anisocytosis (manual) Slight Target Cells Slight Salina Cells Slight Sodium 146 Potassium 3.0 L Chloride 111 H Carbon Dioxide 20 L Anion Gap 17 BUN 51 H Creatinine 2.2 H Est GFR ( Amer) 35 Est GFR (Non-Af Amer) 29 Random Glucose 72 L Calcium 7.5 L Phosphorus 2.3 L Magnesium 1.8 Total Bilirubin 1.2 AST 55 ALT 28 Alkaline Phosphatase 63 Troponin I 0.6220 H* Total Protein 5.8 L Albumin 2.4 L Globulin 3.4 Albumin/Globulin Ratio 0.7 L Random Vancomycin 12.66 Attending/Attestation - Attestation I have personally seen and examined this patient.: Yes I have fully participated in the care of the patient.: Yes I have reviewed all pertinent clinical information: Yes Notes (Text): 11/09/17 17:35 patient seen and examined in the intensive care unit. Case discussed with staff in the morning. Continue antibiotics for pneumonia -Currently on Bipap -CT head on admission showed possible medial left cerebellar hemorrhage off amiodarone because of hypotension Continue digoxin No anticoagulation Follow-up chest x-ray
--- NOTE | 2017-11-09 11:46 | CP.PCM.PN ---
Subjective - Date & Time of Evaluation Date of Evaluation: 11/09/17 Time of Evaluation: 07:00 - Subjective Subjective: gram neg sepsis IV Merrem added poor prognosis Objective - Vital Signs/Intake and Output Vital Signs (last 24 hours): Temp Pulse Resp BP Pulse Ox 98.6 F 125 H 20 120/78 98 11/09/17 08:00 11/09/17 10:58 11/09/17 10:40 11/09/17 10:40 11/09/17 10:40 Intake and Output: 11/09/17 11/09/17 06:59 18:59 Intake Total 900 150 Output Total 205 27 Balance 695 123 - Medications Medications: Current Medications Famotidine (Pepcid) 20 mg IVP DAILY VANE Last Admin: 11/09/17 10:45 Dose: 20 mg Azithromycin 500 mg/ Sodium (Chloride) 250 mls @ 250 mls/hr IVPB Q24H VANE PRN Reason: Protocol Stop: 11/12/17 09:59 Last Admin: 11/09/17 10:50 Dose: 250 mls/hr Dextrose/Sodium Chloride (Dextrose 5%/0.9% Ns 1000 Ml) 1,000 mls @ 75 mls/hr IV .[id number] VANE Last Admin: 11/09/17 06:45 Dose: Not Given Amiodarone HCl 900 mg/ (Dextrose) 500 mls @ 33.33 mls/hr IV .Q15H1M VANE; 1 MG/ MIN PRN Reason: Protocol Stop: 11/09/17 15:16 Last Admin: 11/09/17 10:40 Dose: 33.33 mls/hr Potassium Chloride (Potassium Chloride 10 Meq/100 Ml) 10 meq in 100 mls @ 100 mls/hr IVPB Q2H VANE Stop: 11/09/17 14:44 Last Admin: 11/09/17 10:40 Dose: 100 mls/hr Amiodarone HCl 900 mg/ (Dextrose) 500 mls @ 16.66 mls/hr IV .Q24H VANE; 0.5 MG/ MIN PRN Reason: Protocol Stop: 11/10/17 09:17 Meropenem 1 gm/ Sodium (Chloride) 100 mls @ 100 mls/hr IVPB Q12H VANE PRN Reason: Protocol Gentamicin Sulfate 80 mg/ (Sodium Chloride) 102 mls @ 100 mls/hr IVPB ONCE ONE PRN Reason: Protocol Stop: 11/09/17 13:01 - Labs Labs: 11/09/17 05:39 11/09/17 05:39 PT 17.1 SECONDS (9.7-12.2) H 11/08/17 02:40 INR 1.5 11/08/17 02:40 APTT 30 SECONDS (21-34) 11/08/17 02:40 - Constitutional Appears: Cachectic, Chronically Ill - Head Exam Head Exam: NORMOCEPHALIC - Eye Exam Eye Exam: absent: Scleral icterus - ENT Exam ENT Exam: Mucous Membranes Dry - Neck Exam Neck Exam: absent: Lymphadenopathy - Respiratory Exam Respiratory Exam: Decreased Breath Sounds - Cardiovascular Exam Cardiovascular Exam: REGULAR RHYTHM - GI/Abdominal Exam GI & Abdominal Exam: Distended - Rectal Exam Rectal Exam: Deferred - Exam Exam: NORMAL INSPECTION Assessment and Plan (1) UTI (urinary tract infection) Status: Acute (2) Pneumonia Status: Acute (3) Altered mental status, unspecified Status: Acute (4) Atrial fibrillation with rapid ventricular response Status: Acute (5) Sepsis Status: Acute
[2017-11-09] MEDS ORDERED: Sodium Chloride 0.9% 250 ML IV ONE (13:06)
[2017-11-09] MEDS: Meropenem 1 GM in Sodium Chloride 0.9% 100 ML IVPB SCH (14:02)
--- NOTE | 2017-11-09 14:25 | CP.PCM.CON ---
History of Present Illness - History of Present Illness History of Present Illness: Palliative consult Requested by Doctor Dennis Ybarra for goals of care discussion Patient is a 82 yo male admitted from [place] with rapid A Fib. Cardioversion attempted on the scene by EMT, without success. Patient transferred to [facility] where was stabilized on ICU. The further studies confirmed UTI , sepsis and pneumonia. IV antibiotics on board. patient was also diagnosed with lactic acidosis and Bi Carbs IV initiated. Latest CT chest was suspicious for pulmonary nodules and masses and CT head indicated questionable small hemorhages. Despite all prudent Medical interventions, patient remains unresponsive and is on Bipap. Palliative care was asked to discuss goals of care with family. PMH: anemia, Bi polar disorder, oseoporosis, dementia, dysphagia, CVA Soc. hx: Single, [place] resident, nieces involved in care Fam. hx: father was Bi polar as per niece Review of Systems - Review of Systems All systems: reviewed and no additional remarkable complaints except Review of Systems: ROS unobtainable from patient due to condition. Per nursing, patient remained on Bipap over night and hypotensive. Past Patient History - Infectious Disease Hx of Infectious Diseases: None - Past Medical History & Family History Past Medical History?: Yes - Past Social History Smoking Status: Unknown If Ever Smoked - CARDIAC Hx Cardiac Disorders: Yes Hx Hypercholesterolemia: Yes Hx Hypertension: Yes Other/Comment: Acute Ischemic Heart disease - PULMONARY Hx Respiratory Disorders: No - NEUROLOGICAL Hx Neurological Disorder: Yes Hx Vertigo: Yes Other/Comment: Cerebral Infarction - HEENT Hx HEENT Problems: Yes Hx Blind: Yes (L eye) Hx Cataracts: Yes (bilateral) - RENAL Hx Chronic Kidney Disease: Yes - ENDOCRINE/METABOLIC Hx Endocrine Disorders: No - HEMATOLOGICAL/ONCOLOGICAL Hx Blood Disorders: Yes Hx Anemia: Yes - INTEGUMENTARY Hx Dermatological Problems: No - MUSCULOSKELETAL/RHEUMATOLOGICAL Hx Falls: Yes - GASTROINTESTINAL Hx Gastrointestinal Disorders: Yes Hx Gastroesophageal Reflux: Yes - GENITOURINARY/GYNECOLOGICAL Hx Prostate Problems: Yes (enlarged) - PSYCHIATRIC Hx Psychophysiologic Disorder: Yes Hx Bipolar Disorder: Yes - SURGICAL HISTORY Hx Surgeries: No - ANESTHESIA Hx Anesthesia: No Hx Anesthesia Reactions: No (n/a) Meds Allergies/Adverse Reactions: Allergies Allergy/AdvReac Type Severity Reaction Status Date / Time No Known Allergies Allergy Unverified 11/08/17 02:23 - Medications Medications: Current Medications Famotidine (Pepcid) 20 mg IVP DAILY VANE Last Admin: 11/09/17 10:45 Dose: 20 mg Azithromycin 500 mg/ Sodium (Chloride) 250 mls @ 250 mls/hr IVPB Q24H VANE PRN Reason: Protocol Stop: 11/12/17 09:59 Last Admin: 11/09/17 10:50 Dose: 250 mls/hr Amiodarone HCl 900 mg/ (Dextrose) 500 mls @ 33.33 mls/hr IV .Q15H1M VANE; 1 MG/ MIN PRN Reason: Protocol Stop: 11/09/17 15:16 Last Admin: 11/09/17 10:40 Dose: 33.33 mls/hr Potassium Chloride (Potassium Chloride 10 Meq/100 Ml) 10 meq in 100 mls @ 100 mls/hr IVPB Q2H VANE Stop: 11/09/17 14:44 Last Admin: 11/09/17 14:04 Dose: 100 mls/hr Amiodarone HCl 900 mg/ (Dextrose) 500 mls @ 16.66 mls/hr IV .Q24H VANE; 0.5 MG/ MIN PRN Reason: Protocol Stop: 11/10/17 09:17 Meropenem 1 gm/ Sodium (Chloride) 100 mls @ 100 mls/hr IVPB Q12H VANE PRN Reason: Protocol Last Admin: 11/09/17 14:02 Dose: 100 mls/hr Dextrose/Sodium Chloride (Dextrose 5%/0.9% Ns 1000 Ml) 1,000 mls @ 100 mls/hr IV .Q10H VANE Last Admin: 11/09/17 14:05 Dose: Not Given Physical Exam - Constitutional Appears: No Acute Distress, Chronically Ill - Head Exam Head Exam: ATRAUMATIC, NORMAL INSPECTION, NORMOCEPHALIC - Eye Exam Eye Exam: Normal appearance Pupil Exam: NORMAL ACCOMODATION, PERRL - ENT Exam ENT Exam: Mucous Membranes Dry - Neck Exam Neck exam: Positive for: Normal Inspection - Respiratory Exam Respiratory Exam: Decreased Breath Sounds, NORMAL BREATHING PATTERN Additional comments: On Bi pap - Cardiovascular Exam Cardiovascular Exam: Tachycardia - GI/Abdominal Exam GI & Abdominal Exam: Hypoactive Bowel Sounds - Rectal Exam Rectal Exam: Deferred - Exam Exam: NORMAL INSPECTION - Extremities Exam Extremities exam: Positive for: pedal edema - Back Exam Back exam: NORMAL INSPECTION - Neurological Exam Neurological exam: Altered - Psychiatric Exam Psychiatric exam: Flat Affect Additional comments: lethargic, unresponsive - Skin Skin Exam: Pallor Results - Vital Signs Recent Vital Signs: Last Vital Signs Temp 98.6 F 11/09/17 08:00 Pulse 124 H 11/09/17 13:06 Resp 27 H 11/09/17 12:10 BP 78/55 L 11/09/17 11:51 Pulse Ox 98 11/09/17 10:40 - Labs Result Diagrams: 11/09/17 05:39 11/09/17 05:39 Labs: Laboratory Results - last 24 hr 11/08/17 11/09/17 11/09/17 10:51 05:39 05:39 WBC 9.9 RBC 3.78 L Hgb 11.6 L Hct 35.1 MCV 92.9 MCH 30.6 MCHC 33.0 RDW 15.9 H Plt Count 105 L D MPV 11.5 Neut % (Auto) 97.6 H Lymph % (Auto) 2.0 L Bailey % (Auto) 0.3 Eos % (Auto) 0.1 Baso % (Auto) 0.0 Neut # (Auto) 9.6 H Lymph # (Auto) 0.2 L Bailey # (Auto) 0.0 Eos # (Auto) 0.0 Baso # (Auto) 0.0 Neutrophils % (Manual) 16 L Band Neutrophils % 59 H* Lymphocytes % (Manual) 2 L Monocytes % (Manual) 23 H Platelet Estimate Decreased L Polychromasia Slight Hypochromasia (manual) Slight Anisocytosis (manual) Slight Target Cells Slight [place] Cells Slight Sodium Potassium Chloride Carbon Dioxide Anion Gap BUN Creatinine Est GFR ( Amer) Est GFR (Non-Af Amer) Random Glucose Lactic Acid 3.0 H Calcium Phosphorus Magnesium Total Bilirubin AST ALT Alkaline Phosphatase Troponin I Total Protein Albumin Globulin Albumin/Globulin Ratio Random Vancomycin 12.66 11/09/17 05:39 WBC RBC Hgb Hct MCV MCH MCHC RDW Plt Count MPV Neut % (Auto) Lymph % (Auto) Bailey % (Auto) Eos % (Auto) Baso % (Auto) Neut # (Auto) Lymph # (Auto) Bailey # (Auto) Eos # (Auto) Baso # (Auto) Neutrophils % (Manual) Band Neutrophils % Lymphocytes % (Manual) Monocytes % (Manual) Platelet Estimate Polychromasia Hypochromasia (manual) Anisocytosis (manual) Target Cells [place] Cells Sodium 146 Potassium 3.0 L Chloride 111 H Carbon Dioxide 20 L Anion Gap 17 BUN 51 H Creatinine 2.2 H Est GFR ( Amer) 35 Est GFR (Non-Af Amer) 29 Random Glucose 72 L Lactic Acid Calcium 7.5 L Phosphorus 2.3 L Magnesium 1.8 Total Bilirubin 1.2 AST 55 ALT 28 Alkaline Phosphatase 63 Troponin I 0.6220 H* Total Protein 5.8 L Albumin 2.4 L Globulin 3.4 Albumin/Globulin Ratio 0.7 L Random Vancomycin Assessment & Plan - Assessment and Plan (Free Text) Assessment: Palliative consult Full Code, there is no Advance directive on chart, PPS 0% I reviewed medical records, all diagnostic studies, examined patient in the bed and discussed his condition with nursing. Patient examined in bed, with eyes closed, unable to fallow simple commends, reactive to tactile stimuli, non verbal. Skin pale Breath sounds diminished, on BiPap. Abdomen flat, decreased bowel sounds. Incontinent of bowel and bladder. Able to move all 4 extremities spontaneously, without the purpose. Mild pedal edema. BP 78/55, HR 124. lactate level higher today , 5.7. Doctor Randa on board for renal. Bi carbs changed to D5 due to low sugar level. I spoke to patient's niece Licha Sharath Dowell over the phone yesterday and scheduled family meeting for today, what she agreed to. Today, since family meeting time past due, I called the niece, when she said she " was afraid to see her uncle at this condition' and was worried about her own health. The niece , however, agreed to phone discussion of goals of care. I reviewed patient's clinical presentation and most recent studies. magalys asked to be kept up yp date with any changes in patient's condition. Magalys's concern was patient's comfort . She stated that he has been a NH resident for while now, and she notices decline in his health and over all presentation. Her emotions are mixed with anger and sorrow at the same time and difficulties adapting to current patient's condition. I suggested we discuss the Code status. Magalys was very clear, she would not want any agressive measures to prolong her uncle's life if meaningful recovery was not expected. She wanted him to be allowed natural . I made sure she understood the meaning of DNR/DNi and she confirmed. Further, Magalys expressed her wishes against any HD or PEG placement. KOBI introduced and faxed over for her to sign. ICU nurses and Doctor Dennis Ybarra made aware of. Impression * Acutely ill man with complex PMH * SOB due to Pneumonia * UTI * Weakness * Aphasia * Dysphasia * Encounter for end of life care Suggestions * Continue O2 supplement * Continue IV antibiotics * NPO, aspiration precautions * IV hydration * DNR/DNI I feel that the next level of care for this patient will be comfort care only if conditions does not improve soon. That will have to be further discussed with fide Dowell if Medical and Nursing team get to that impression. Thank you for the referral. Palliative care will continue to [place] up and support patient and family Advance Planing time, 45 min
[2017-11-09 18:17] LABS: ARTERIAL BLOOD GAS O2 SAT 97.4 % (95-98); ARTERIAL BLOOD GAS PCO2 43 mm/Hg (35-45); ARTERIAL BLOOD GAS PH 7.26 (7.35-7.45); ARTERIAL BLOOD GAS PO2 79 mm/Hg (80-100); ARTERIAL BLOOD GAS TCO2 20.6 mmol/L (22-28)
--- NOTE | 2017-11-09 19:15 | CARD ---
APPROVED REPORT EKG Measurement Heart [id number] <Conclusion> Atrial fibrillation with rapid ventricular response Right bundle branch block Left anterior fascicular block Bifascicular block Septal infarct, age undetermined Abnormal ECG
[2017-11-09] MEDS ORDERED: Potassium Chloride 40 MEQ in Dextrose 5%/0.9% NS 1,000 ML IV SCH (22:48)
--- NOTE | 2017-11-09 22:48 | CP.PCM.PN ---
Subjective - Date & Time of Evaluation Date of Evaluation: 11/09/17 Time of Evaluation: 13:00 - Subjective Subjective: Patient still on BIPAP; no improvement in mental status; made DNR/DNI; Objective - Vital Signs/Intake and Output Vital Signs (last 24 hours): Temp Pulse Resp BP Pulse Ox 97.6 F 108 H 23 100/54 L 96 11/09/17 20:00 11/09/17 22:19 11/09/17 21:00 11/09/17 20:49 11/09/17 21:00 Intake and Output: 11/09/17 11/10/17 18:59 06:59 Intake Total 2491.6 300 Output Total 235 34 Balance 2256.6 266 - Medications Medications: Current Medications Famotidine (Pepcid) 20 mg IVP DAILY VANE Last Admin: 11/09/17 10:45 Dose: 20 mg Azithromycin 500 mg/ Sodium (Chloride) 250 mls @ 250 mls/hr IVPB Q24H VANE PRN Reason: Protocol Stop: 11/12/17 09:59 Last Admin: 11/09/17 10:50 Dose: 250 mls/hr Meropenem 1 gm/ Sodium (Chloride) 100 mls @ 100 mls/hr IVPB Q12H VANE PRN Reason: Protocol Last Admin: 11/09/17 14:02 Dose: 100 mls/hr - Labs Labs: 11/09/17 05:39 11/09/17 05:39 PT 17.1 SECONDS (9.7-12.2) H 11/08/17 02:40 INR 1.5 11/08/17 02:40 APTT 30 SECONDS (21-34) 11/08/17 02:40 - Constitutional Appears: Non-toxic, No Acute Distress - Eye Exam Eye Exam: absent: Scleral icterus - ENT Exam ENT Exam: Mucous Membranes Moist - Respiratory Exam Respiratory Exam: Clear to Ausculation Bilateral. absent: Respiratory Distress - Cardiovascular Exam Cardiovascular Exam: Tachycardia Additional comments: muffled heart sounds - GI/Abdominal Exam GI & Abdominal Exam: Soft - Exam Additional comments: telles in place - Extremities Exam Additional comments: no leg edema; - Neurological Exam Neurological Exam: Altered, Awake - Psychiatric Exam Psychiatric exam: Agitated - Skin Skin Exam: absent: Cyanosis, Rash Assessment and Plan (1) Acute renal failure Assessment & Plan: Urine output previously responding to IVF, now dropping; serum creatinine 0.9, no significant CKD as previously reported; likely ATN in the setting of sepsis/ hypotension; lactic acidosis improved though still hypotensive at times; -recommend IVF boluses to maintain MAP > 60; -continue D5NS at 100 cc/hr -avoid nephrotoxic agents (single dose of gent given, should avoid re-dosing unless absolutely needed); Status: Acute (2) Acute hypoxemic respiratory failure Assessment & Plan: With mulitple lung opacities that are concerning for lung masses; in the setting of oliguric renal failure, and patient now DNI, will need to be cautious with IVF; if no improvement in renal function over next 24 hrs, will decrease/stop IVF; Status: Acute (3) Atrial fibrillation with rapid ventricular response Assessment & Plan: Still with RVR; need to keep K > 4.0; will continue to replenish; adding 40 meq/ L KCl to IVF; Status: Acute (4) Sepsis Assessment & Plan: On meropenem 1g q12h and azithromycin; will need to monitor renal function closely, if creatinine increases further, should consider decreasing meropenem frequency to q24h; Status: Acute
[2017-11-10] MEDS: Meropenem 1 GM in Sodium Chloride 0.9% 100 ML IVPB SCH ×2 (02:25→14:32)
[2017-11-10 06:30] LABS: ABG ALLEN TEST A; ARTERIAL BLOOD GAS HCO3 20.4 mmol/L (21-28); ARTERIAL BLOOD GAS O2 SAT 99.5 % (95-98); ARTERIAL BLOOD GAS PCO2 33 mm/Hg (35-45); ARTERIAL BLOOD GAS PH 7.36 (7.35-7.45); ARTERIAL BLOOD GAS PO2 126 mm/Hg (80-100); ARTERIAL BLOOD GAS TCO2 19.6 mmol/L (22-28)
--- NOTE | 2017-11-10 06:40 | CP.PCM.PN ---
Subjective - Date & Time of Evaluation Date of Evaluation: 11/10/17 Time of Evaluation: 06:34 - Subjective Subjective: Mr. Anaya was seen and examined at the bedside in ICU. He is awake, opens his eyes spontaneously. Currently on bipap, saturating at 99%. He sometimes follow commands, but not all the time. He is able to move his upper extremities and refused to move his lower extremities. He is able to response to tactile stimuli with facial grimacing and wanted to hit the staff. He is on DNR/ DNI. He had an episode of low blood pressure last night, but with current bp-115/67. He is on bilateral SCD. Objective - Vital Signs/Intake and Output Vital Signs (last 24 hours): Temp Pulse Resp BP Pulse Ox 98 F 103 H 19 121/61 100 11/10/17 04:00 11/10/17 05:50 11/10/17 04:00 11/10/17 04:51 11/10/17 04:00 Intake and Output: 11/09/17 11/10/17 18:59 06:59 Intake Total 2491.6 1300 Output Total 235 54 Balance 2256.6 1246 - Medications Medications: Current Medications Famotidine (Pepcid) 20 mg IVP DAILY [facility] Last Admin: 11/09/17 10:45 Dose: 20 mg Azithromycin 500 mg/ Sodium (Chloride) 250 mls @ 250 mls/hr IVPB Q24H VANE PRN Reason: Protocol Stop: 11/12/17 09:59 Last Admin: 11/09/17 10:50 Dose: 250 mls/hr Meropenem 1 gm/ Sodium (Chloride) 100 mls @ 100 mls/hr IVPB Q12H VANE PRN Reason: Protocol Last Admin: 11/10/17 02:25 Dose: 100 mls/hr Potassium Chloride 40 meq/ (Dextrose/Sodium Chloride) 1,020 mls @ 100 mls/hr IV .[id number] [facility] Last Admin: 11/10/17 00:19 Dose: 100 mls/hr - Labs Labs: 11/09/17 05:39 11/09/17 05:39 PT 17.1 SECONDS (9.7-12.2) H 11/08/17 02:40 INR 1.5 11/08/17 02:40 APTT 30 SECONDS (21-34) 11/08/17 02:40 - Constitutional Appears: No Acute Distress - Head Exam Head Exam: NORMAL INSPECTION - Neurological Exam Neurological Exam: Awake Neuro motor strength exam: Left Upper Extremity: 2/1, Right Upper Extremity: 2/1 , Left Lower Extremity: 2/1, Right Lower Extremity: 2/1 Additional comments: He opens his eyes spontaneously and follow some commands, Sensation remains intact. Assessment and Plan (1) Altered mental status, unspecified Assessment & Plan: Case discussed with Dr. Capps, continue all current medical regimen. Recommend MRI of the brain without contrast depending with family decision on how aggresive they want for treatment. Status: Acute
[2017-11-10 07:03] LABS: ALB/GLOB RATIO 0.6 (1.0-2.1); CALCIUM 7.1 mg/dl (8.6-10.4)
[2017-11-10] MEDS ORDERED: Dextrose 5%/0.9% NS 1,000 ML IV SCH ×2 (07:05→17:01)
--- NOTE | 2017-11-10 08:29 | RAD ---
HISTORY: Shortness of breath COMPARISON: CT chest without contrast 11/08/2017. FINDINGS: LUNGS: There is worsening confluent airspace disease in the lungs, worse in the right mid lung. PLEURA: Suspect layering pleural effusions, no pneumothorax apparent. CARDIOVASCULAR: Normal. OSSEOUS STRUCTURES: No significant abnormalities. VISUALIZED UPPER ABDOMEN: Normal. OTHER FINDINGS: None. IMPRESSION: Findings are concerning for worsening multifocal consolidations and pleural effusions. Follow-up is advised
[2017-11-10 08:42] LABS: HEMOGLOBIN 12.2 g/dL (12.0-18.0); MEAN CORPUSCULAR HEMOGLOBIN 30.3 pg (27.0-31.0); MEAN CORPUSCULAR HGB CONC 31.7 g/dL (33.0-37.0); MEAN PLATELET VOLUME 11.4 fL (7.2-11.7); RBC 4.01 Mil/uL (4.40-5.90); RED CELL DISTRIBUTION WIDTH 16.2 % (11.5-14.5)
[2017-11-10 08:49] LABS: MEAN CELL VOLUME 95.7 fL (80.0-94.0); PLATELET COUNT 59 K/uL (130-400)
[2017-11-10] MEDS: Azithromycin 500 MG in Sodium Chloride 0.9% 250 ML IVPB SCH (09:04)
--- NOTE | 2017-11-10 09:18 | CP.PCM.PCO ---
Physician Communication Note - Physician Communication Note Physician Communication Note: No igned POLST back yet. Niece asked for DNR/DNI
[2017-11-10 09:31] LABS: BASO # 0.1 K/uL (0.0-0.2); BASO % 0.2 % (0.0-2.0); LYMPH # 0.2 K/uL (1.0-4.3); LYMPH % 0.7 % (20.0-40.0); MONO % 0.1 % (0.0-10.0); NEUT # 30.7 K/uL (1.8-7.0)
[2017-11-10 09:38] LABS: LYMPHOCYTE 3 % (20-40); TOTAL CELLS COUNTED 100
[2017-11-10 09:39] LABS: MONOCYTE 19 % (0-10); NEUTROPHIL 34 % (50-75); PLATELET ESTIMATE DECREASED (NORMAL)
[2017-11-10 09:40] LABS: ANISOCYTOSIS SLIGHT; BANDS 44 % (0-2); POIKILOCYTOSIS SLIGHT
[2017-11-10 09:41] LABS: BURR CELLS SLIGHT; HYPOCHROMIC SLIGHT; OVALOCYTES SLIGHT
--- NOTE | 2017-11-10 09:51 | CP.CCUPN ---
<Miale Jones - Last Filed: 11/10/17 14:59> CCU Subjective - Physician Review Subjective (Free Text): 11/10/17 09:49 Patient seen and examined at bedside. Per nursing, patient became hypotensive overnight. Amiodarone drip off. Patient is on bipap, not answering questions appropriately. Moving upper extremities. He is on Merrem and Azithromycin for gram negative bacteremia likely 2/2 UTI, pneumonia. Prognosis is poor. CCU Objective - Vital Signs / Intake & Output Vital Signs (Last 4 hours): Vital Signs Pulse Resp BP Pulse Ox 11/10/17 07:34 110 H 11/10/17 07:00 98 H 23 100 11/10/17 06:55 117/65 11/10/17 06:00 98 H 20 98 11/10/17 05:50 103 H 115/67 Intake and Output (Last 8hrs): Intake & Output 11/09/17 11/10/17 11/10/17 22:59 06:59 14:59 Intake Total 800 1000 100 Output Total 157 20 0 Balance 643 980 100 Weight 47.128 kg Intake: Intake, IV Amount 800 1000 100 Left Hand 800 300 Right Antecubital 700 100 Oral 0 0 0 Output: Urine 157 20 0 Urethral (Morales) 157 20 0 Other: # Bowel Movements 0 1 0 - Physical Exam Other physical findings (Free Text): - Head Exam Additional comments: 3 salina holes left frontal skull - Eye Exam Eye Exam: EOMI - ENT Exam ENT Exam: Mucous Membranes Dry - Neck Exam Neck exam: Positive for: Normal Inspection - Respiratory Exam Respiratory Exam: Clear to Auscultation Bilateral, Respiratory Distress. absent : Rales, Rhonchi, Wheezes - Cardiovascular Exam Cardiovascular Exam: Tachycardia, +S1, +S2, Irregular rhythm - GI/Abdominal Exam GI & Abdominal Exam: Normal Bowel Sounds, Soft, Non-tender to palpation - Extremities Exam Extremities exam: Positive for: pedal edema - Neurological Exam Neurological exam: :Lethargic - Medications Active Medications: Active Medications Generic Name Dose Route Start Last Admin Trade Name Freq PRN Reason Stop Dose Admin Famotidine 20 mg 11/08/17 10:00 11/09/17 10:45 Pepcid IVP 20 mg DAILY VANE Administration Azithromycin 500 mg/ Sodium 250 mls @ 250 mls/hr 11/09/17 09:00 11/09/17 10: 50 Chloride IVPB 11/12/17 09:59 250 mls/hr Q24H VANE Administration Protocol Meropenem 1 gm/ Sodium 100 mls @ 100 mls/hr 11/09/17 14:00 11/10/17 02:25 Chloride IVPB 100 mls/hr Q12H VANE Administration Protocol Dextrose/Sodium Chloride 1,000 mls @ 100 mls/hr 11/10/17 07:05 Dextrose 5%/0.9% Ns 1000 Ml IV .Q10H VANE - Patient Studies Lab Studies: Microbiology Studies 11/08/17 07:30 Gram Stain - Final Sputum Sputum Culture - Preliminary Gram Negative Jean 11/08/17 02:27 Blood Culture - Final Blood Klebsiella Pneumoniae Ssp Pneu Gram Stain - Final 11/08/17 02:27 Urine Culture - Final Urine Escherichia Coli 11/08/17 02:27 Blood Culture - Final Blood Klebsiella Pneumoniae Ssp Pneu Gram Stain - Final 11/08/17 00:05 MRSA Culture (Admit) - Final Naris MRSA DETECTED Lab Studies 11/10/17 11/10/17 11/10/17 Range/Units 08:38 06:24 05:37 WBC 31.0 H D (4.8-10.8) K/uL RBC 4.01 L (4.40-5.90) Mil/uL Hgb 12.2 (12.0-18.0) g/dL Hct 38.4 (35.0-51.0) % MCV 95.7 H D (80.0-94.0) fL MCH 30.3 (27.0-31.0) pg MCHC 31.7 L (33.0-37.0) g/dL RDW 16.2 H (11.5-14.5) % Plt Count 59 L D (130-400) K/uL MPV 11.4 (7.2-11.7) fL Neut % (Auto) 99.0 H (50.0-75.0) % Lymph % (Auto) 0.7 L (20.0-40.0) % Keith % (Auto) 0.1 (0.0-10.0) % Eos % (Auto) 0.0 (0.0-4.0) % Baso % (Auto) 0.2 (0.0-2.0) % Neut # (Auto) 30.7 H (1.8-7.0) K/uL Lymph # (Auto) 0.2 L (1.0-4.3) K/uL Keith # (Auto) 0.0 (0.0-0.8) K/uL Eos # (Auto) 0.0 (0.0-0.7) K/uL Baso # (Auto) 0.1 (0.0-0.2) K/uL Neutrophils % (Manual) 34 L (50-75) % Band Neutrophils % 44 H* (0-2) % Lymphocytes % (Manual) 3 L (20-40) % Monocytes % (Manual) 19 H (0-10) % Platelet Estimate Decreased L (NORMAL) Hypochromasia (manual) Slight Poikilocytosis (manual Slight Anisocytosis (manual) Slight Ovalocytes Slight Greenup Cells Slight Puncture Site L bra pCO2 33 L (35-45) mm/Hg pO2 126 H (80-100) mm/Hg HCO3 20.4 L (21-28) mmol/L ABG pH 7.36 (7.35-7.45) ABG Total CO2 19.6 L (22-28) mmol/L ABG O2 Saturation 99.5 H (95-98) % ABG Base Excess -5.9 L (-2.0-3.0) mmol/L Devon Test A ABG Potassium 4.5 (3.6-5.2) mmol/L A-a O2 Difference 261.0 mm/Hg Respiratory Index 2.1 Sodium 148 145.0 (132-148) mmol/l Chloride 116 H 118.0 H (98-107) mmol/L Glucose 139 H (75-110) mg/dl Lactate 2.0 (0.7-2.1) mmol/L Vent Mode Bipap FiO2 60.0 % Inspiratory BiPAP Expiratory BiPAP Potassium 4.7 (3.6-5.2) mmol/L Carbon Dioxide 20 L (22-30) mmol/L Anion Gap 17 (10-20) BUN 56 H (9-20) mg/dL Creatinine 2.8 H (0.8-1.5) mg/dL Est GFR ( Amer) 26 Est GFR (Non-Af Amer) 22 Random Glucose 116 H (75-110) mg/dL Calcium 7.1 L (8.6-10.4) mg/dl Phosphorus 2.9 (2.5-4.5) mg/dL Magnesium 1.8 (1.6-2.3) mg/dL Total Bilirubin 1.2 (0.2-1.3) mg/dL AST 49 (17-59) U/L ALT 27 (21-72) U/L Alkaline Phosphatase 73 (38-126) U/L Total Protein 5.3 L (6.3-8.3) g/dL Albumin 2.0 L (3.5-5.0) g/dL Globulin 3.3 (2.2-3.9) gm/dL Albumin/Globulin Ratio 0.6 L (1.0-2.1) Arterial Blood Potassium 4.5 (3.6-5.2) mmol/L 11/09/17 Range/Units 18:14 WBC (4.8-10.8) K/uL RBC (4.40-5.90) Mil/uL Hgb (12.0-18.0) g/dL Hct (35.0-51.0) % MCV (80.0-94.0) fL MCH (27.0-31.0) pg MCHC (33.0-37.0) g/dL RDW (11.5-14.5) % Plt Count (130-400) K/uL MPV (7.2-11.7) fL Neut % (Auto) (50.0-75.0) % Lymph % (Auto) (20.0-40.0) % Keith % (Auto) (0.0-10.0) % Eos % (Auto) (0.0-4.0) % Baso % (Auto) (0.0-2.0) % Neut # (Auto) (1.8-7.0) K/uL Lymph # (Auto) (1.0-4.3) K/uL Keith # (Auto) (0.0-0.8) K/uL Eos # (Auto) (0.0-0.7) K/uL Baso # (Auto) (0.0-0.2) K/uL Neutrophils % (Manual) (50-75) % Band Neutrophils % (0-2) % Lymphocytes % (Manual) (20-40) % Monocytes % (Manual) (0-10) % Platelet Estimate (NORMAL) Hypochromasia (manual) Poikilocytosis (manual Anisocytosis (manual) Ovalocytes [place] Cells Puncture Site Lb pCO2 43 (35-45) mm/Hg pO2 79 L (80-100) mm/Hg HCO3 19.0 L (21-28) mmol/L ABG pH 7.26 L (7.35-7.45) ABG Total CO2 20.6 L (22-28) mmol/L ABG O2 Saturation 97.4 (95-98) % ABG Base Excess -7.5 L (-2.0-3.0) mmol/L Devon Test Na ABG Potassium 3.3 L (3.6-5.2) mmol/L A-a O2 Difference 224.0 mm/Hg Respiratory Index 2.8 Sodium 144.0 (132-148) mmol/l Chloride 115.0 H (98-107) mmol/L Glucose 106 (75-110) mg/dl Lactate 2.2 H (0.7-2.1) mmol/L Vent Mode Bipap FiO2 50.0 % Inspiratory BiPAP 10 Expiratory BiPAP 5 Potassium (3.6-5.2) mmol/L Carbon Dioxide (22-30) mmol/L Anion Gap (10-20) BUN (9-20) mg/dL Creatinine (0.8-1.5) mg/dL Est GFR ( Amer) Est GFR (Non-Af Amer) Random Glucose (75-110) mg/dL Calcium (8.6-10.4) mg/dl Phosphorus (2.5-4.5) mg/dL Magnesium (1.6-2.3) mg/dL Total Bilirubin (0.2-1.3) mg/dL AST (17-59) U/L ALT (21-72) U/L Alkaline Phosphatase (38-126) U/L Total Protein (6.3-8.3) g/dL Albumin (3.5-5.0) g/dL Globulin (2.2-3.9) gm/dL Albumin/Globulin Ratio (1.0-2.1) Arterial Blood Potassium 3.3 L (3.6-5.2) mmol/L Laboratory Results - last 24 hr 03/11/10/17 11/10/17 18:14 05:37 06:24 WBC RBC Hgb Hct MCV MCH MCHC RDW Plt Count MPV Neut % (Auto) Lymph % (Auto) Keith % (Auto) Eos % (Auto) Baso % (Auto) Neut # (Auto) Lymph # (Auto) Keith # (Auto) Eos # (Auto) Baso # (Auto) Neutrophils % (Manual) Band Neutrophils % Lymphocytes % (Manual) Monocytes % (Manual) Platelet Estimate Hypochromasia (manual) Poikilocytosis (manual Anisocytosis (manual) Ovalocytes Greenup Cells Puncture Site Lb L bra pCO2 43 33 L pO2 79 L 126 H HCO3 19.0 L 20.4 L ABG pH 7.26 L 7.36 ABG Total CO2 20.6 L 19.6 L ABG O2 Saturation 97.4 99.5 H ABG Base Excess -7.5 L -5.9 L Devon Test Na A ABG Potassium 3.3 L 4.5 A-a O2 Difference 224.0 261.0 Respiratory Index 2.8 2.1 Sodium 144.0 145.0 148 Chloride 115.0 H 118.0 H 116 H Glucose 106 139 H Lactate 2.2 H 2.0 Vent Mode Bipap Bipap FiO2 50.0 60.0 Inspiratory BiPAP 10 Expiratory BiPAP 5 Potassium 4.7 Carbon Dioxide 20 L Anion Gap 17 BUN 56 H Creatinine 2.8 H Est GFR ( Amer) 26 Est GFR (Non-Af Amer) 22 Random Glucose 116 H Calcium 7.1 L Phosphorus 2.9 Magnesium 1.8 Total Bilirubin 1.2 AST 49 ALT 27 Alkaline Phosphatase 73 Total Protein 5.3 L Albumin 2.0 L Globulin 3.3 Albumin/Globulin Ratio 0.6 L Arterial Blood Potassium 3.3 L 4.5 11/10/17 08:38 WBC 31.0 H D RBC 4.01 L Hgb 12.2 Hct 38.4 MCV 95.7 H D MCH 30.3 MCHC 31.7 L RDW 16.2 H Plt Count 59 L D MPV 11.4 Neut % (Auto) 99.0 H Lymph % (Auto) 0.7 L Keith % (Auto) 0.1 Eos % (Auto) 0.0 Baso % (Auto) 0.2 Neut # (Auto) 30.7 H Lymph # (Auto) 0.2 L Keith # (Auto) 0.0 Eos # (Auto) 0.0 Baso # (Auto) 0.1 Neutrophils % (Manual) 34 L Band Neutrophils % 44 H* Lymphocytes % (Manual) 3 L Monocytes % (Manual) 19 H Platelet Estimate Decreased L Hypochromasia (manual) Slight Poikilocytosis (manual Slight Anisocytosis (manual) Slight Ovalocytes Slight Greenup Cells Slight Puncture Site pCO2 pO2 HCO3 ABG pH ABG Total CO2 ABG O2 Saturation ABG Base Excess Devon Test ABG Potassium A-a O2 Difference Respiratory Index Sodium Chloride Glucose Lactate Vent Mode FiO2 Inspiratory BiPAP Expiratory BiPAP Potassium Carbon Dioxide Anion Gap BUN Creatinine Est GFR ( Amer) Est GFR (Non-Af Amer) Random Glucose Calcium Phosphorus Magnesium Total Bilirubin AST ALT Alkaline Phosphatase Total Protein Albumin Globulin Albumin/Globulin Ratio Arterial Blood Potassium Assessment/Plan - Assessment and Plan (Free Text) Assessment: Patient is a 82 year old male with past medical history of HTN, BPH, incontinence, mitral valve insufficiency, aggressive behavior, who presented with new onset paroxysmal afib, sepsis from [facility]. Admitted to the ICU for closer monitoring. Neurology: -Patient is lethargic , not answering questions appropriately -Still on Bipap, ABG reviewed -Titrate FiO2 to maintain sats in the 90s -CT head on admission showed possible medial left cerebellar hemorrhage -Repeat Head CT showed no changed -Neurology on consult, Dr Capps, help appreciated -Neurosurgery: Tiny area of inc attenuation in medial L cerebellum of no clinical concern, No neurosurgical involvement necessary -Patient with poor prognosis -Palliative care on consult, Magaly spoke with patient's Niece, Magalys, patient made DNR/DNI -Hospice Evaluation ordered Cardiology: -Patient is in atrial fibrillation with RVR -Troponin 0.1050 -> 0.430 -> 0.622 -Amiodarone drip discontinued in light of hypotension -No anticoagulation at this time -Echo showed normal LV systolic function. Borderline dilated RV. Small pericardial effusion -Cardiology, Dr Soler on consult, help appreciated -Lower extremity dopplers negative for DVT bilaterally Respiratory: -CXR 11/10: findings are concerning for worsening multifocal consolidations and pleural effusions -CT chest showed widespread airspace disease the preponderance of which appears to be pulmonary nodules and masses. Largest in RUL/LLL. -Continue bipap, Titrate FiO2 to maintain sats in the 90s -Sputum cultures growing gram negative rods, awaiting sensitivities -Pulmonary on consult, Dr Lopez, help appreciated Renal: -Potassium normalized -Patient with history of chronic kidney disease stage 3 -BUN/Cr increasing 56/2.8 -Continue D5/NS at 100ml/hr -Poor urine output -Nephrology on consult, Dr Tolentino, help appreciated GI: -Patient did not pass bedside nursing swallow eval -Diet: NPO -Pepcid 20mg IVP daily Heme/Onc: -Platelets 59 today -Likely secondary to sepsis -Will continue to monitor Infectious Disease: -WBC increased to 9.9 -> 31, bandemia 44 -Will repeat CBC today -Blood cultures growing Klebsiella Pneumonia x 2, sensitive to Merrem -Urine cultures growing E Coli, sensitive to Merrem -Sputum Cx growing gram negative rods, awaiting sensitivities -Antibiotics: Merrem 1gm Q12H, Azithromycin 500mg IV Q24H -ID on consult, Dr Barakat, help appreciated GI/DVT ppx: -Pepcid 20mg IVP daily -SCDs <Asher Lopez S - Last Filed: 11/10/17 15:17> CCU Objective - Vital Signs / Intake & Output Vital Signs (Last 4 hours): Vital Signs Temp Pulse Resp BP Pulse Ox 11/10/17 15:00 109 H 22 11/10/17 14:53 113 H 21 133/111 H 11/10/17 14:08 99 H 11/10/17 14:00 104 H 19 95 11/10/17 13:51 103 H 18 138/66 94 L 11/10/17 13:00 102 H 21 11/10/17 12:51 103 H 19 123/65 11/10/17 12:00 97.8 F 107 H 20 11/10/17 11:52 100 H 18 94/44 L Intake and Output (Last 8hrs): Intake & Output 11/10/17 11/10/17 11/10/17 06:59 14:59 22:59 Intake Total 1000 800 100 Output Total 20 10 Balance 980 790 100 Weight 103 lb 14.4 oz Intake: Intake, IV Amount 1000 800 100 Left Hand 300 Right Antecubital 700 800 100 Oral 0 0 Output: Urine 20 10 Urethral (Morales) 20 10 Other: # Bowel Movements 1 1 - Medications Active Medications: Active Medications Generic Name Dose Route Start Last Admin Trade Name Freq PRN Reason Stop Dose Admin Famotidine 20 mg 11/08/17 10:00 11/10/17 11:03 Pepcid IVP 20 mg DAILY VANE Administration Azithromycin 500 mg/ Sodium 250 mls @ 250 mls/hr 11/09/17 09:00 11/10/17 09: 04 Chloride IVPB 11/12/17 09:59 250 mls/hr Q24H VANE Administration Protocol Meropenem 1 gm/ Sodium 100 mls @ 100 mls/hr 11/09/17 14:00 11/10/17 02:25 Chloride IVPB 100 mls/hr Q12H VANE Administration Protocol Dextrose/Sodium Chloride 1,000 mls @ 100 mls/hr 11/10/17 07:05 11/10/17 07:35 Dextrose 5%/0.9% Ns 1000 Ml IV 100 mls/hr .Q10H VANE Administration - Patient Studies Lab Studies: Microbiology Studies 11/08/17 07:30 Gram Stain - Final Sputum Sputum Culture - Preliminary Gram Negative Jean 11/08/17 02:27 Blood Culture - Final Blood Klebsiella Pneumoniae Ssp Pneu Gram Stain - Final 11/08/17 02:27 Urine Culture - Final Urine Escherichia Coli 11/08/17 02:27 Blood Culture - Final Blood Klebsiella Pneumoniae Ssp Pneu Gram Stain - Final 11/08/17 00:05 MRSA Culture (Admit) - Final Naris MRSA DETECTED Lab Studies 11/10/17 11/10/17 11/10/17 Range/Units 14:21 08:38 06:24 WBC 32.9 H 31.0 H D (4.8-10.8) K/uL RBC 3.49 L 4.01 L (4.40-5.90) Mil/uL Hgb 10.5 L 12.2 (12.0-18.0) g/dL Hct 32.5 L 38.4 (35.0-51.0) % MCV 93.1 D 95.7 H D (80.0-94.0) fL MCH 30.1 30.3 (27.0-31.0) pg MCHC 32.4 L 31.7 L (33.0-37.0) g/dL RDW 16.7 H 16.2 H (11.5-14.5) % Plt Count 54 L 59 L D (130-400) K/uL MPV 10.8 11.4 (7.2-11.7) fL Neut % (Auto) 98.2 H 99.0 H (50.0-75.0) % Lymph % (Auto) 0.8 L 0.7 L (20.0-40.0) % Keith % (Auto) 0.2 0.1 (0.0-10.0) % Eos % (Auto) 0.3 0.0 (0.0-4.0) % Baso % (Auto) 0.5 0.2 (0.0-2.0) % Neut # (Auto) 32.3 H 30.7 H (1.8-7.0) K/uL Lymph # (Auto) 0.3 L 0.2 L (1.0-4.3) K/uL Keith # (Auto) 0.1 0.0 (0.0-0.8) K/uL Eos # (Auto) 0.1 0.0 (0.0-0.7) K/uL Baso # (Auto) 0.2 0.1 (0.0-0.2) K/uL Neutrophils % (Manual) 33 L 34 L (50-75) % Band Neutrophils % 43 H* 44 H* (0-2) % Lymphocytes % (Manual) 1 L 3 L (20-40) % Monocytes % (Manual) 23 H 19 H (0-10) % Platelet Estimate Decreased L Decreased L (NORMAL) Hypochromasia (manual) Slight Slight Poikilocytosis (manual Slight Slight Anisocytosis (manual) Slight Slight Target Cells Slight Tear Drop Cells Slight Ovalocytes Slight Slight Greenup Cells Slight Slight Puncture Site pCO2 (35-45) mm/Hg pO2 (80-100) mm/Hg HCO3 (21-28) mmol/L ABG pH (7.35-7.45) ABG Total CO2 (22-28) mmol/L ABG O2 Saturation (95-98) % ABG Base Excess (-2.0-3.0) mmol/L Devon Test ABG Potassium (3.6-5.2) mmol/L A-a O2 Difference mm/Hg Respiratory Index Sodium 148 (132-148) mmol/l Chloride 116 H (98-107) mmol/L Glucose (75-110) mg/dl Lactate (0.7-2.1) mmol/L Vent Mode FiO2 % Inspiratory BiPAP Expiratory BiPAP Potassium 4.7 (3.6-5.2) mmol/L Carbon Dioxide 20 L (22-30) mmol/L Anion Gap 17 (10-20) BUN 56 H (9-20) mg/dL Creatinine 2.8 H (0.8-1.5) mg/dL Est GFR ( Amer) 26 Est GFR (Non-Af Amer) 22 Random Glucose 116 H (75-110) mg/dL Calcium 7.1 L (8.6-10.4) mg/dl Phosphorus 2.9 (2.5-4.5) mg/dL Magnesium 1.8 (1.6-2.3) mg/dL Total Bilirubin 1.2 (0.2-1.3) mg/dL AST 49 (17-59) U/L ALT 27 (21-72) U/L Alkaline Phosphatase 73 (38-126) U/L Total Protein 5.3 L (6.3-8.3) g/dL Albumin 2.0 L (3.5-5.0) g/dL Globulin 3.3 (2.2-3.9) gm/dL Albumin/Globulin Ratio 0.6 L (1.0-2.1) Arterial Blood Potassium (3.6-5.2) mmol/L 11/10/17 11/09/17 Range/Units 05:37 18:14 WBC (4.8-10.8) K/uL RBC (4.40-5.90) Mil/uL Hgb (12.0-18.0) g/dL Hct (35.0-51.0) % MCV (80.0-94.0) fL MCH (27.0-31.0) pg MCHC (33.0-37.0) g/dL RDW (11.5-14.5) % Plt Count (130-400) K/uL MPV (7.2-11.7) fL Neut % (Auto) (50.0-75.0) % Lymph % (Auto) (20.0-40.0) % Keith % (Auto) (0.0-10.0) % Eos % (Auto) (0.0-4.0) % Baso % (Auto) (0.0-2.0) % Neut # (Auto) (1.8-7.0) K/uL Lymph # (Auto) (1.0-4.3) K/uL Keith # (Auto) (0.0-0.8) K/uL Eos # (Auto) (0.0-0.7) K/uL Baso # (Auto) (0.0-0.2) K/uL Neutrophils % (Manual) (50-75) % Band Neutrophils % (0-2) % Lymphocytes % (Manual) (20-40) % Monocytes % (Manual) (0-10) % Platelet Estimate (NORMAL) Hypochromasia (manual) Poikilocytosis (manual Anisocytosis (manual) Target Cells Tear Drop Cells Ovalocytes Salina Cells Puncture Site L bra Lb pCO2 33 L 43 (35-45) mm/Hg pO2 126 H 79 L (80-100) mm/Hg HCO3 20.4 L 19.0 L (21-28) mmol/L ABG pH 7.36 7.26 L (7.35-7.45) ABG Total CO2 19.6 L 20.6 L (22-28) mmol/L ABG O2 Saturation 99.5 H 97.4 (95-98) % ABG Base Excess -5.9 L -7.5 L (-2.0-3.0) mmol/L Devon Test A Na ABG Potassium 4.5 3.3 L (3.6-5.2) mmol/L A-a O2 Difference 261.0 224.0 mm/Hg Respiratory Index 2.1 2.8 Sodium 145.0 144.0 (132-148) mmol/l Chloride 118.0 H 115.0 H (98-107) mmol/L Glucose 139 H 106 (75-110) mg/dl Lactate 2.0 2.2 H (0.7-2.1) mmol/L Vent Mode Bipap Bipap FiO2 60.0 50.0 % Inspiratory BiPAP 10 Expiratory BiPAP 5 Potassium (3.6-5.2) mmol/L Carbon Dioxide (22-30) mmol/L Anion Gap (10-20) BUN (9-20) mg/dL Creatinine (0.8-1.5) mg/dL Est GFR ( Amer) Est GFR (Non-Af Amer) Random Glucose (75-110) mg/dL Calcium (8.6-10.4) mg/dl Phosphorus (2.5-4.5) mg/dL Magnesium (1.6-2.3) mg/dL Total Bilirubin (0.2-1.3) mg/dL AST (17-59) U/L ALT (21-72) U/L Alkaline Phosphatase (38-126) U/L Total Protein (6.3-8.3) g/dL Albumin (3.5-5.0) g/dL Globulin (2.2-3.9) gm/dL Albumin/Globulin Ratio (1.0-2.1) Arterial Blood Potassium 4.5 3.3 L (3.6-5.2) mmol/L Laboratory Results - last 24 hr 11/09/17 11/10/17 11/10/17 18:14 05:37 06:24 WBC RBC Hgb Hct MCV MCH MCHC RDW Plt Count MPV Neut % (Auto) Lymph % (Auto) Keith % (Auto) Eos % (Auto) Baso % (Auto) Neut # (Auto) Lymph # (Auto) Keith # (Auto) Eos # (Auto) Baso # (Auto) Neutrophils % (Manual) Band Neutrophils % Lymphocytes % (Manual) Monocytes % (Manual) Platelet Estimate Hypochromasia (manual) Poikilocytosis (manual Anisocytosis (manual) Target Cells Tear Drop Cells Ovalocytes Greenup Cells Puncture Site Lb L bra pCO2 43 33 L pO2 79 L 126 H HCO3 19.0 L 20.4 L ABG pH 7.26 L 7.36 ABG Total CO2 20.6 L 19.6 L ABG O2 Saturation 97.4 99.5 H ABG Base Excess -7.5 L -5.9 L Devon Test Na A ABG Potassium 3.3 L 4.5 A-a O2 Difference 224.0 261.0 Respiratory Index 2.8 2.1 Sodium 144.0 145.0 148 Chloride 115.0 H 118.0 H 116 H Glucose 106 139 H Lactate 2.2 H 2.0 Vent Mode Bipap Bipap FiO2 50.0 60.0 Inspiratory BiPAP 10 Expiratory BiPAP 5 Potassium 4.7 Carbon Dioxide 20 L Anion Gap 17 BUN 56 H Creatinine 2.8 H Est GFR ( Amer) 26 Est GFR (Non-Af Amer) 22 Random Glucose 116 H Calcium 7.1 L Phosphorus 2.9 Magnesium 1.8 Total Bilirubin 1.2 AST 49 ALT 27 Alkaline Phosphatase 73 Total Protein 5.3 L Albumin 2.0 L Globulin 3.3 Albumin/Globulin Ratio 0.6 L Arterial Blood Potassium 3.3 L 4.5 11/10/17 11/10/17 08:38 14:21 WBC 31.0 H D 32.9 H RBC 4.01 L 3.49 L Hgb 12.2 10.5 L Hct 38.4 32.5 L MCV 95.7 H D 93.1 D MCH 30.3 30.1 MCHC 31.7 L 32.4 L RDW 16.2 H 16.7 H Plt Count 59 L D 54 L MPV 11.4 10.8 Neut % (Auto) 99.0 H 98.2 H Lymph % (Auto) 0.7 L 0.8 L Keith % (Auto) 0.1 0.2 Eos % (Auto) 0.0 0.3 Baso % (Auto) 0.2 0.5 Neut # (Auto) 30.7 H 32.3 H Lymph # (Auto) 0.2 L 0.3 L Keith # (Auto) 0.0 0.1 Eos # (Auto) 0.0 0.1 Baso # (Auto) 0.1 0.2 Neutrophils % (Manual) 34 L 33 L Band Neutrophils % 44 H* 43 H* Lymphocytes % (Manual) 3 L 1 L Monocytes % (Manual) 19 H 23 H Platelet Estimate Decreased L Decreased L Hypochromasia (manual) Slight Slight Poikilocytosis (manual Slight Slight Anisocytosis (manual) Slight Slight Target Cells Slight Tear Drop Cells Slight Ovalocytes Slight Slight Salina Cells Slight Slight Puncture Site pCO2 pO2 HCO3 ABG pH ABG Total CO2 ABG O2 Saturation ABG Base Excess Devon Test ABG Potassium A-a O2 Difference Respiratory Index Sodium Chloride Glucose Lactate Vent Mode FiO2 Inspiratory BiPAP Expiratory BiPAP Potassium Carbon Dioxide Anion Gap BUN Creatinine Est GFR ( Amer) Est GFR (Non-Af Amer) Random Glucose Calcium Phosphorus Magnesium Total Bilirubin AST ALT Alkaline Phosphatase Total Protein Albumin Globulin Albumin/Globulin Ratio Arterial Blood Potassium Attending/Attestation - Attestation I have personally seen and examined this patient.: Yes I have fully participated in the care of the patient.: Yes I have reviewed all pertinent clinical information: Yes Notes (Text): 11/10/17 15:16 patient seen and examined Remains on BiPAP, continue antibiotics, elevated white count and thrombocytopenia DNR/DNI Consider hospice evaluation
[2017-11-10 14:24] LABS: BASO # 0.2 K/uL (0.0-0.2); BASO % 0.5 % (0.0-2.0); EOS # 0.1 K/uL (0.0-0.7); EOS % 0.3 % (0.0-4.0); HEMOGLOBIN 10.5 g/dL (12.0-18.0); LYMPH # 0.3 K/uL (1.0-4.3); LYMPH % 0.8 % (20.0-40.0); MEAN CELL VOLUME 93.1 fL (80.0-94.0); MEAN CORPUSCULAR HEMOGLOBIN 30.1 pg (27.0-31.0); MEAN CORPUSCULAR HGB CONC 32.4 g/dL (33.0-37.0); MEAN PLATELET VOLUME 10.8 fL (7.2-11.7); MONO # 0.1 K/uL (0.0-0.8); MONO % 0.2 % (0.0-10.0); NEUT # 32.3 K/uL (1.8-7.0); NEUT % 98.2 % (50.0-75.0); PLATELET COUNT 54 K/uL (130-400); RBC 3.49 Mil/uL (4.40-5.90); RED CELL DISTRIBUTION WIDTH 16.7 % (11.5-14.5); WHITE BLOOD COUNT 32.9 K/uL (4.8-10.8)
[2017-11-10 14:54] LABS: BANDS 43 % (0-2); LYMPHOCYTE 1 % (20-40); MONOCYTE 23 % (0-10); NEUTROPHIL 33 % (50-75); TOTAL CELLS COUNTED 100
[2017-11-10 14:55] LABS: PLATELET ESTIMATE DECREASED (NORMAL)
[2017-11-10 14:57] LABS: ANISOCYTOSIS SLIGHT; BURR CELLS SLIGHT; HYPOCHROMIC SLIGHT; POIKILOCYTOSIS SLIGHT
[2017-11-10 14:58] LABS: OVALOCYTES SLIGHT; TARGET CELLS SLIGHT; TEARDROP CELLS SLIGHT
--- NOTE | 2017-11-10 17:05 | CP.PCM.PN ---
Subjective - Date & Time of Evaluation Date of Evaluation: 11/10/17 Time of Evaluation: 13:00 - Subjective Subjective: No change in mental status, remains lethargic, on BIPAP; Objective - Vital Signs/Intake and Output Vital Signs (last 24 hours): Temp Pulse Resp BP Pulse Ox 97.8 F 109 H 22 133/111 H 95 11/10/17 12:00 11/10/17 15:00 11/10/17 15:00 11/10/17 14:53 11/10/17 14:00 Intake and Output: 11/10/17 11/10/17 06:59 18:59 Intake Total 1400 900 Output Total 59 10 Balance 1341 890 - Medications Medications: Current Medications Famotidine (Pepcid) 20 mg IVP DAILY [facility] Last Admin: 11/10/17 11:03 Dose: 20 mg Azithromycin 500 mg/ Sodium (Chloride) 250 mls @ 250 mls/hr IVPB Q24H VANE PRN Reason: Protocol Stop: 11/12/17 09:59 Last Admin: 11/10/17 09:04 Dose: 250 mls/hr Meropenem 1 gm/ Sodium (Chloride) 100 mls @ 100 mls/hr IVPB Q12H [facility]ANE PRN Reason: Protocol Last Admin: 11/10/17 02:25 Dose: 100 mls/hr Dextrose/Sodium Chloride (Dextrose 5%/0.9% Ns 1000 Ml) 1,000 mls @ 40 mls/hr IV .Q24H VANE - Labs Labs: 11/10/17 14:21 11/10/17 06:24 PT 17.1 SECONDS (9.7-12.2) H 11/08/17 02:40 INR 1.5 11/08/17 02:40 APTT 30 SECONDS (21-34) 11/08/17 02:40 - Constitutional Appears: No Acute Distress - ENT Exam ENT Exam: Mucous Membranes Moist - Respiratory Exam Additional comments: Markedly decreased sounds on R; tachypneic - Cardiovascular Exam Cardiovascular Exam: Tachycardia Additional comments: muffled heart sounds - GI/Abdominal Exam GI & Abdominal Exam: Soft. absent: Distended - Exam Additional comments: telles in place - Extremities Exam Additional comments: mild leg edema; - Neurological Exam Neurological Exam: Awake - Psychiatric Exam Psychiatric exam: Agitated - Skin Skin Exam: Warm. absent: Cyanosis Assessment and Plan (1) Acute renal failure Assessment & Plan: Clinically progressed to ATN in the setting of hypotension, now oliguric renal failure despite adequate volume repletion; family not wanting aggressive measures so will hold off on HD (not yet needed); -decreasing IVF with D5-NS at 40 cc/hr; -avoid nephrotoxic agents; Status: Acute (2) Acute hypoxemic respiratory failure Assessment & Plan: Still on BIPAP; decreasing rate of IVF as above to avoid further volume overload ; Status: Acute (3) Atrial fibrillation with rapid ventricular response Status: Acute (4) Sepsis Assessment & Plan: On meropenem and azithromycin; kleb pneumo bacteremia, E coli UTI; recommend to decrease meropenem to q24h dosing for CrCl < 10; Status: Acute
--- NOTE | 2017-11-10 18:48 | CP.PCM.PN ---
Subjective - Date & Time of Evaluation Date of Evaluation: 11/10/17 Time of Evaluation: 11:45 Objective - Vital Signs/Intake and Output Vital Signs (last 24 hours): Temp Pulse Resp BP Pulse Ox 98.7 F 103 H 21 97/71 L 95 11/10/17 16:00 11/10/17 17:00 11/10/17 17:00 11/10/17 15:53 11/10/17 14:00 Intake and Output: 11/10/17 11/10/17 06:59 18:59 Intake Total 1400 1100 Output Total 59 10 Balance 1341 1090 - Medications Medications: Current Medications Famotidine (Pepcid) 20 mg IVP DAILY [facility] Last Admin: 11/10/17 11:03 Dose: 20 mg Azithromycin 500 mg/ Sodium (Chloride) 250 mls @ 250 mls/hr IVPB Q24H VANE PRN Reason: Protocol Stop: 11/12/17 09:59 Last Admin: 11/10/17 09:04 Dose: 250 mls/hr Meropenem 1 gm/ Sodium (Chloride) 100 mls @ 100 mls/hr IVPB Q12H VANE PRN Reason: Protocol Last Admin: 11/10/17 02:25 Dose: 100 mls/hr Dextrose/Sodium Chloride (Dextrose 5%/0.9% Ns 1000 Ml) 1,000 mls @ 40 mls/hr IV .Q24H VANE - Labs Labs: 11/10/17 14:21 11/10/17 06:24 PT 17.1 SECONDS (9.7-12.2) H 11/08/17 02:40 INR 1.5 11/08/17 02:40 APTT 30 SECONDS (21-34) 11/08/17 02:40
[2017-11-11] MEDS: Meropenem 1 GM in Sodium Chloride 0.9% 100 ML IVPB SCH ×2 (01:09→14:19)
[2017-11-11 06:07] LABS: BASO # 0.1 K/uL (0.0-0.2); BASO % 0.3 % (0.0-2.0); HEMOGLOBIN 10.7 g/dL (12.0-18.0); LYMPH # 0.4 K/uL (1.0-4.3); LYMPH % 1.1 % (20.0-40.0); MEAN CELL VOLUME 93.4 fL (80.0-94.0); MEAN CORPUSCULAR HEMOGLOBIN 30.1 pg (27.0-31.0); MEAN CORPUSCULAR HGB CONC 32.2 g/dL (33.0-37.0); MEAN PLATELET VOLUME 11.5 fL (7.2-11.7); MONO # 0.3 K/uL (0.0-0.8); MONO % 0.6 % (0.0-10.0); NEUT # 40.5 K/uL (1.8-7.0); NRBC % 0.1 % (0.0-2.0); PLATELET COUNT 53 K/uL (130-400); RBC 3.56 Mil/uL (4.40-5.90); RED CELL DISTRIBUTION WIDTH 16.7 % (11.5-14.5)
[2017-11-11 06:13] LABS: WHITE BLOOD COUNT 41.3 K/uL (4.8-10.8)
[2017-11-11 06:31] LABS: ALB/GLOB RATIO 0.6 (1.0-2.1); CALCIUM 7.7 mg/dl (8.6-10.4)
--- NOTE | 2017-11-11 06:54 | CP.PCM.PN ---
Subjective - Date & Time of Evaluation Date of Evaluation: 11/11/17 Time of Evaluation: 06:51 - Subjective Subjective: Mr. Anaya was seen and examined at the bedside in ICU. He opens his eyes spontaneously, but does not move all extremities spontaneously. He is on bipap , positive corneal reflex, response to noxious stimuli with facial grimacing. His right upper extremity and bilateral lower extremities are swollen. Patient is DNR/DNI.There was no untoward events overnight. Objective - Vital Signs/Intake and Output Vital Signs (last 24 hours): Temp Pulse Resp BP Pulse Ox 98.2 F 107 H 20 105/63 95 11/11/17 04:00 11/11/17 06:13 11/11/17 06:00 11/11/17 05:52 11/11/17 03:52 Intake and Output: 11/10/17 11/11/17 18:59 06:59 Intake Total 1200 480 Output Total 20 25 Balance 1180 455 - Medications Medications: Current Medications Famotidine (Pepcid) 20 mg IVP DAILY [facility] Last Admin: 11/10/17 11:03 Dose: 20 mg Azithromycin 500 mg/ Sodium (Chloride) 250 mls @ 250 mls/hr IVPB Q24H VANE PRN Reason: Protocol Stop: 11/12/17 09:59 Last Admin: 11/10/17 09:04 Dose: 250 mls/hr Meropenem 1 gm/ Sodium (Chloride) 100 mls @ 100 mls/hr IVPB Q12H VANE PRN Reason: Protocol Last Admin: 11/11/17 01:09 Dose: 100 mls/hr Dextrose/Sodium Chloride (Dextrose 5%/0.9% Ns 1000 Ml) 1,000 mls @ 40 mls/hr IV .Q24H VANE Last Admin: 11/10/17 19:31 Dose: 40 mls/hr - Labs Labs: 11/11/17 05:50 11/11/17 05:57 PT 17.1 SECONDS (9.7-12.2) H 11/08/17 02:40 INR 1.5 11/08/17 02:40 APTT 30 SECONDS (21-34) 11/08/17 02:40 - Constitutional Appears: No Acute Distress - Head Exam Head Exam: NORMAL INSPECTION - Neurological Exam Neurological Exam: Awake Neuro motor strength exam: Left Upper Extremity: 0, Right Upper Extremity: 0, Left Lower Extremity: 0, Right Lower Extremity: 0 Additional comments: He response to noxious stimuli with facial grimacing. Assessment and Plan (1) Altered mental status, unspecified Assessment & Plan: Case discussed with Dr. Gilmore, continue all current medical regimen including palliative care. Recommend MRI of the brain without contrast depending on the family decision. If the patient will be on palliative management, neurology is signing oiff, please re-consult if needed. Status: Acute
[2017-11-11 08:07] LABS: BANDS 16 % (0-2); MONOCYTE 6 % (0-10); NEUTROPHIL 78 % (50-75); TOTAL CELLS COUNTED 100
[2017-11-11 08:09] LABS: ANISOCYTOSIS SLIGHT; HYPOCHROMIC SLIGHT; PLATELET ESTIMATE DECREASED (NORMAL); POLYCHROMIC SLIGHT
[2017-11-11 08:10] LABS: OVALOCYTES SLIGHT; TARGET CELLS SLIGHT
[2017-11-11 08:11] LABS: BURR CELLS SLIGHT; TEARDROP CELLS SLIGHT
[2017-11-11] MEDS: Azithromycin 500 MG in Sodium Chloride 0.9% 250 ML IVPB SCH (09:00)
[2017-11-11] MEDS ORDERED: Albumin Human 25% (12.5 gm/50 ml) IV SCH (09:45)
[2017-11-11] MEDS: Dextrose 5%/Lactated Ringer's 1,000 ML IV SCH (10:11)
[2017-11-11] MEDS: Albumin Human 25% (12.5 gm/50 ml) IV SCH ×3 (10:15→21:53)
--- NOTE | 2017-11-11 11:24 | CP.CCUPN ---
<Maile Jones - Last Filed: 11/11/17 12:50> CCU Subjective - Physician Review Subjective (Free Text): 11/11/17 11:23 Patient seen and examined at bedside. Patient still with bipap, currently sats in the 90s. Currently on Merrem and Azithromycin, sputum cultures growing Klebsiella Pneumonia. Patient is awake, not following commands. ROS not obtained. CCU Objective - Vital Signs / Intake & Output Vital Signs (Last 4 hours): Vital Signs Pulse Resp 11/11/17 10:27 20 11/11/17 07:26 104 H Intake and Output (Last 8hrs): Intake & Output 11/10/17 11/11/17 11/11/17 22:59 06:59 14:59 Intake Total 560 320 40 Output Total 10 25 Balance 550 295 40 Weight 53.524 kg Intake: Intake, IV Amount 560 320 40 Left Hand 260 320 40 Right Antecubital 300 Output: Urine 10 25 Urethral (Morales) 10 25 - Physical Exam Other physical findings (Free Text): - Physical Exam Other physical findings (Free Text): - Head Exam Additional comments: 3 [place] holes left frontal skull - Eye Exam Eye Exam: EOMI - ENT Exam ENT Exam: Mucous Membranes Dry, BIPAP - Neck Exam Neck exam: Positive for: Normal Inspection - Respiratory Exam Respiratory Exam: Clear to Auscultation Bilateral, Respiratory Distress. absent : Rales, Rhonchi, Wheezes - Cardiovascular Exam Cardiovascular Exam: Tachycardia, +S1, +S2, Irregular rhythm - GI/Abdominal Exam GI & Abdominal Exam: Normal Bowel Sounds, Soft, Non-tender to palpation - Extremities Exam Extremities exam: Positive for: pedal edema - Neurological Exam Neurological exam: :Lethargic - Medications Active Medications: Active Medications Generic Name Dose Route Start Last Admin Trade Name Freq PRN Reason Stop Dose Admin Albumin Human 25 gm 11/11/17 10:15 Albumin Human 25% (12.5 Gm/50 Ml) IV 11/12/17 04:16 Q6H VANE Famotidine 20 mg 11/08/17 10:00 11/10/17 11:03 Pepcid IVP 20 mg DAILY VANE Administration Azithromycin 500 mg/ Sodium 250 mls @ 250 mls/hr 11/09/17 09:00 11/10/17 09: 04 Chloride IVPB 11/12/17 09:59 250 mls/hr Q24H VANE Administration Protocol Meropenem 1 gm/ Sodium 100 mls @ 100 mls/hr 11/09/17 14:00 11/11/17 01:09 Chloride IVPB 100 mls/hr Q12H VANE Administration Protocol Dextrose/Lactated Ringer's 1,000 mls @ 40 mls/hr 11/11/17 09:45 Dextrose 5%/Lactated Ringer's IV .Q24H VANE - Patient Studies Lab Studies: Microbiology Studies 11/08/17 07:30 Gram Stain - Final Sputum Sputum Culture - Final Klebsiella Pneumoniae Ssp Pneu 11/08/17 02:27 Blood Culture - Final Blood Klebsiella Pneumoniae Ssp Pneu Gram Stain - Final 11/08/17 02:27 Urine Culture - Final Urine Escherichia Coli 11/08/17 02:27 Blood Culture - Final Blood Klebsiella Pneumoniae Ssp Pneu Gram Stain - Final Lab Studies 11/11/17 11/11/17 11/10/17 Range/Units 05:57 05:50 14:21 WBC 41.3 H* 32.9 H (4.8-10.8) K/uL RBC 3.56 L 3.49 L (4.40-5.90) Mil/uL Hgb 10.7 L 10.5 L (12.0-18.0) g/dL Hct 33.2 L 32.5 L (35.0-51.0) % MCV 93.4 93.1 D (80.0-94.0) fL MCH 30.1 30.1 (27.0-31.0) pg MCHC 32.2 L 32.4 L (33.0-37.0) g/dL RDW 16.7 H 16.7 H (11.5-14.5) % Plt Count 53 L 54 L (130-400) K/uL MPV 11.5 10.8 (7.2-11.7) fL Neut % (Auto) 98.0 H 98.2 H (50.0-75.0) % Lymph % (Auto) 1.1 L 0.8 L (20.0-40.0) % Ransom % (Auto) 0.6 0.2 (0.0-10.0) % Eos % (Auto) 0.0 0.3 (0.0-4.0) % Baso % (Auto) 0.3 0.5 (0.0-2.0) % Neut # (Auto) 40.5 H 32.3 H (1.8-7.0) K/uL Lymph # (Auto) 0.4 L 0.3 L (1.0-4.3) K/uL Ransom # (Auto) 0.3 0.1 (0.0-0.8) K/uL Eos # (Auto) 0.0 0.1 (0.0-0.7) K/uL Baso # (Auto) 0.1 0.2 (0.0-0.2) K/uL Neutrophils % (Manual) 78 H 33 L (50-75) % Band Neutrophils % 16 H* 43 H* (0-2) % Lymphocytes % (Manual) TEST NOT PERFORMED 1 L (20-40) % Monocytes % (Manual) 6 23 H (0-10) % Platelet Estimate Decreased L Decreased L (NORMAL) Polychromasia Slight Hypochromasia (manual) Slight Slight Poikilocytosis (manual Slight Anisocytosis (manual) Slight Slight Target Cells Slight Slight Tear Drop Cells Slight Slight Ovalocytes Slight Slight [place] Cells Slight Slight Sodium 153 H (132-148) mmol/L Potassium 4.5 (3.6-5.2) mmol/L Chloride 120 H (98-107) mmol/L Carbon Dioxide 22 (22-30) mmol/L Anion Gap 16 (10-20) BUN 62 H (9-20) mg/dL Creatinine 3.2 H (0.8-1.5) mg/dL Est GFR ( Amer) 23 Est GFR (Non-Af Amer) 19 Random Glucose 82 (75-110) mg/dL Calcium 7.7 L (8.6-10.4) mg/dl Phosphorus 3.0 (2.5-4.5) mg/dL Magnesium 1.9 (1.6-2.3) mg/dL Total Bilirubin 1.0 (0.2-1.3) mg/dL AST 53 (17-59) U/L ALT 34 (21-72) U/L Alkaline Phosphatase 123 (38-126) U/L Total Protein 5.3 L (6.3-8.3) g/dL Albumin 2.0 L (3.5-5.0) g/dL Globulin 3.3 (2.2-3.9) gm/dL Albumin/Globulin Ratio 0.6 L (1.0-2.1) Mycoplasma pneumon IgG (<=0.90) Mycoplasma pneumon IgM (<770) U/mL Ur Strep pneumoniae Ag 11/08/17 11/08/17 Range/Units 10:51 10:51 WBC (4.8-10.8) K/uL RBC (4.40-5.90) Mil/uL Hgb (12.0-18.0) g/dL Hct (35.0-51.0) % MCV (80.0-94.0) fL MCH (27.0-31.0) pg MCHC (33.0-37.0) g/dL RDW (11.5-14.5) % Plt Count (130-400) K/uL MPV (7.2-11.7) fL Neut % (Auto) (50.0-75.0) % Lymph % (Auto) (20.0-40.0) % Ransom % (Auto) (0.0-10.0) % Eos % (Auto) (0.0-4.0) % Baso % (Auto) (0.0-2.0) % Neut # (Auto) (1.8-7.0) K/uL Lymph # (Auto) (1.0-4.3) K/uL Ransom # (Auto) (0.0-0.8) K/uL Eos # (Auto) (0.0-0.7) K/uL Baso # (Auto) (0.0-0.2) K/uL Neutrophils % (Manual) (50-75) % Band Neutrophils % (0-2) % Lymphocytes % (Manual) (20-40) % Monocytes % (Manual) (0-10) % Platelet Estimate (NORMAL) Polychromasia Hypochromasia (manual) Poikilocytosis (manual Anisocytosis (manual) Target Cells Tear Drop Cells Ovalocytes [place] Cells Sodium (132-148) mmol/L Potassium (3.6-5.2) mmol/L Chloride (98-107) mmol/L Carbon Dioxide (22-30) mmol/L Anion Gap (10-20) BUN (9-20) mg/dL Creatinine (0.8-1.5) mg/dL Est GFR ( Amer) Est GFR (Non-Af Amer) Random Glucose (75-110) mg/dL Calcium (8.6-10.4) mg/dl Phosphorus (2.5-4.5) mg/dL Magnesium (1.6-2.3) mg/dL Total Bilirubin (0.2-1.3) mg/dL AST (17-59) U/L ALT (21-72) U/L Alkaline Phosphatase (38-126) U/L Total Protein (6.3-8.3) g/dL Albumin (3.5-5.0) g/dL Globulin (2.2-3.9) gm/dL Albumin/Globulin Ratio (1.0-2.1) Mycoplasma pneumon IgG 2.71 H (<=0.90) Mycoplasma pneumon IgM 39 (<770) U/mL Ur Strep pneumoniae Ag Not detected Laboratory Results - last 24 hr 11/08/17 11/08/17 11/10/17 10:51 10:51 14:21 WBC 32.9 H RBC 3.49 L Hgb 10.5 L Hct 32.5 L MCV 93.1 D MCH 30.1 MCHC 32.4 L RDW 16.7 H Plt Count 54 L MPV 10.8 Neut % (Auto) 98.2 H Lymph % (Auto) 0.8 L Ransom % (Auto) 0.2 Eos % (Auto) 0.3 Baso % (Auto) 0.5 Neut # (Auto) 32.3 H Lymph # (Auto) 0.3 L Ransom # (Auto) 0.1 Eos # (Auto) 0.1 Baso # (Auto) 0.2 Neutrophils % (Manual) 33 L Band Neutrophils % 43 H* Lymphocytes % (Manual) 1 L Monocytes % (Manual) 23 H Platelet Estimate Decreased L Polychromasia Hypochromasia (manual) Slight Poikilocytosis (manual Slight Anisocytosis (manual) Slight Target Cells Slight Tear Drop Cells Slight Ovalocytes Slight [place] Cells Slight Sodium Potassium Chloride Carbon Dioxide Anion Gap BUN Creatinine Est GFR ( Amer) Est GFR (Non-Af Amer) Random Glucose Calcium Phosphorus Magnesium Total Bilirubin AST ALT Alkaline Phosphatase Total Protein Albumin Globulin Albumin/Globulin Ratio Mycoplasma pneumon IgG 2.71 H Mycoplasma pneumon IgM 39 Ur Strep pneumoniae Ag Not detected 11/11/17 11/11/17 05:50 05:57 WBC 41.3 H* RBC 3.56 L Hgb 10.7 L Hct 33.2 L MCV 93.4 MCH 30.1 MCHC 32.2 L RDW 16.7 H Plt Count 53 L MPV 11.5 Neut % (Auto) 98.0 H Lymph % (Auto) 1.1 L Ransom % (Auto) 0.6 Eos % (Auto) 0.0 Baso % (Auto) 0.3 Neut # (Auto) 40.5 H Lymph # (Auto) 0.4 L Ransom # (Auto) 0.3 Eos # (Auto) 0.0 Baso # (Auto) 0.1 Neutrophils % (Manual) 78 H Band Neutrophils % 16 H* Lymphocytes % (Manual) TEST NOT PERFORMED Monocytes % (Manual) 6 Platelet Estimate Decreased L Polychromasia Slight Hypochromasia (manual) Slight Poikilocytosis (manual Anisocytosis (manual) Slight Target Cells Slight Tear Drop Cells Slight Ovalocytes Slight [place] Cells Slight Sodium 153 H Potassium 4.5 Chloride 120 H Carbon Dioxide 22 Anion Gap 16 BUN 62 H Creatinine 3.2 H Est GFR ( Amer) 23 Est GFR (Non-Af Amer) 19 Random Glucose 82 Calcium 7.7 L Phosphorus 3.0 Magnesium 1.9 Total Bilirubin 1.0 AST 53 ALT 34 Alkaline Phosphatase 123 Total Protein 5.3 L Albumin 2.0 L Globulin 3.3 Albumin/Globulin Ratio 0.6 L Mycoplasma pneumon IgG Mycoplasma pneumon IgM Ur Strep pneumoniae Ag Assessment/Plan - Assessment and Plan (Free Text) Assessment: Patient is a 82 year old male with past medical history of HTN, BPH, incontinence, mitral valve insufficiency, aggressive behavior, who presented with new onset paroxysmal afib, sepsis from [facility]. Admitted to the ICU for closer monitoring. Neurology: -Patient is lethargic , not answering questions appropriately -Still on Bipap, ABG reviewed -Will place on High flow nasal cannula -CT head on admission showed possible medial left cerebellar hemorrhage -Repeat Head CT showed no changed -Neurology on consult, Dr Capps, help appreciated -Neurosurgery: Tiny area of inc attenuation in medial L cerebellum of no clinical concern, No neurosurgical involvement necessary -Patient with poor prognosis -Palliative care on consult, Magaly spoke with patient's Niece, Magalys, patient made DNR/DNI -Hospice Evaluation ordered Cardiology: -Patient is in atrial fibrillation with RVR -Troponin 0.1050 -> 0.430 -> 0.622 -Amiodarone drip discontinued in light of hypotension -No anticoagulation at this time -Echo showed normal LV systolic function. Borderline dilated RV. Small pericardial effusion -Cardiology, Dr Soler on consult, help appreciated -Lower extremity dopplers negative for DVT bilaterally -Chest US to assess for fluid overload Respiratory: -CXR 11/10: findings are concerning for worsening multifocal consolidations and pleural effusions -CT chest showed widespread airspace disease the preponderance of which appears to be pulmonary nodules and masses. Largest in RUL/LLL. -Started on High Flow NC, Titrate FiO2 to maintain sats in the 90s -Sputum cultures growing gram negative rods, awaiting sensitivities -Pulmonary on consult, Dr Lopez, help appreciated Renal: -Potassium normalized -Patient with history of chronic kidney disease stage 3 -BUN/Cr 62/3.2 -Continue D5/LR at 40cc/hr -Poor urine output -Nephrology on consult, Dr Tolentino, help appreciated GI: -Patient did not pass bedside nursing swallow eval -Diet: NPO -Pepcid 20mg IVP daily -GI on consult for dobhoff insertion -Albumin 2.0 -Started on Albumin 25gm q6H x 4 doses Heme/Onc: -Thrombocytopenia -Likely secondary to sepsis -Will continue to monitor Infectious Disease: -WBC increased to 31 -> 41.6, bandemia 16 -Blood cultures growing Klebsiella Pneumonia x 2, sensitive to Merrem -Urine cultures growing E Coli, sensitive to Merrem -Sputum Cx growing Klebsiella Pneumonia also sensitive to Merrem -Antibiotics: Merrem 1gm Q12H, Azithromycin 500mg IV Q24H -ID on consult, Dr Barakat, help appreciated GI/DVT ppx: -Pepcid 20mg IVP daily -SCDs <Latef,Bharat M - Last Filed: 11/11/17 21:50> CCU Objective - Vital Signs / Intake & Output Vital Signs (Last 4 hours): Vital Signs Temp Pulse Resp BP Pulse Ox 11/11/17 21:30 125 H 17 120/69 11/11/17 21:00 124 H 18 124/70 11/11/17 20:30 122 H 20 131/85 100 11/11/17 20:00 98.2 F 124 H 20 127/78 99 11/11/17 19:30 122 H 18 132/74 11/11/17 19:00 121 H 20 143/71 11/11/17 18:30 122 H 20 137/76 11/11/17 18:00 124 H 22 139/84 100 Intake and Output (Last 8hrs): Intake & Output 11/11/17 11/11/17 11/11/17 06:59 14:59 22:59 Intake Total 320 250.3 762.12 Output Total 25 5 Balance 295 250.3 757.12 Weight 118 lb Intake: IV 165 Intake, IV Amount 320 250.3 597.12 Left Hand 320 240 490 Right Antecubital 10.3 107.12 Output: Urine 25 5 Urethral (Morales) 25 5 - Medications Active Medications: Active Medications Generic Name Dose Route Start Last Admin Trade Name Freq PRN Reason Stop Dose Admin Albumin Human 25 gm 11/11/17 10:15 11/11/17 16:45 Albumin Human 25% (12.5 Gm/50 Ml) IV 11/12/17 04:16 25 gm Q6H VANE Administration Famotidine 20 mg 11/08/17 10:00 11/11/17 12:12 Pepcid IVP 20 mg DAILY VANE Administration Meropenem 1 gm/ Sodium 100 mls @ 100 mls/hr 11/09/17 14:00 11/11/17 14:19 Chloride IVPB 100 mls/hr Q12H VANE Administration Protocol Dextrose/Lactated Ringer's 1,000 mls @ 40 mls/hr 11/11/17 09:45 11/11/17 10: 11 Dextrose 5%/Lactated Ringer's IV 40 mls/hr .Q24H VANE Administration Dopamine HCl/Dextrose 400 mg in 250 mls @ 0 mls/hr 11/11/17 17:06 11/11/17 20 :55 Dopamine 400mg/250ml D5w IV 10.3 mls/hr .Q0M PRN Titration TITRATE PER MD ORDER Protocol Per Protocol Sodium Bicarbonate 150 meq/ 1,000 mls @ 100 mls/hr 11/11/17 18:00 11/11/17 20 :00 Dextrose IV 100 mls/hr .Q10H VANE Administration Ciprofloxacin 400 mg in 200 mls @ 200 mls/hr 11/11/17 20:00 11/11/17 20:11 Cipro 400mg/200ml Dsw IVPB 200 mls/hr Q24H VANE Administration Protocol - Patient Studies Lab Studies: Microbiology Studies 11/08/17 07:30 Gram Stain - Final Sputum Sputum Culture - Final Klebsiella Pneumoniae Ssp Pneu Lab Studies 11/11/17 11/11/17 11/11/17 Range/Units 13:15 05:57 05:50 WBC 41.3 H* (4.8-10.8) K/uL RBC 3.56 L (4.40-5.90) Mil/uL Hgb 10.7 L (12.0-18.0) g/dL Hct 33.2 L (35.0-51.0) % MCV 93.4 (80.0-94.0) fL MCH 30.1 (27.0-31.0) pg MCHC 32.2 L (33.0-37.0) g/dL RDW 16.7 H (11.5-14.5) % Plt Count 53 L (130-400) K/uL MPV 11.5 (7.2-11.7) fL Neut % (Auto) 98.0 H (50.0-75.0) % Lymph % (Auto) 1.1 L (20.0-40.0) % Ransom % (Auto) 0.6 (0.0-10.0) % Eos % (Auto) 0.0 (0.0-4.0) % Baso % (Auto) 0.3 (0.0-2.0) % Neut # (Auto) 40.5 H (1.8-7.0) K/uL Lymph # (Auto) 0.4 L (1.0-4.3) K/uL Ransom # (Auto) 0.3 (0.0-0.8) K/uL Eos # (Auto) 0.0 (0.0-0.7) K/uL Baso # (Auto) 0.1 (0.0-0.2) K/uL Neutrophils % (Manual) 78 H (50-75) % Band Neutrophils % 16 H* (0-2) % Lymphocytes % (Manual) TEST NOT PERFORMED Monocytes % (Manual) 6 (0-10) % Platelet Estimate Decreased L (NORMAL) Polychromasia Slight Hypochromasia (manual) Slight Anisocytosis (manual) Slight Target Cells Slight Tear Drop Cells Slight Ovalocytes Slight [place] Cells Slight Puncture Site Na pCO2 41 (35-45) mm/Hg pO2 91 (80-100) mm/Hg HCO3 15.9 L (21-28) mmol/L ABG pH 7.20 L (7.35-7.45) ABG Total CO2 17.3 L (22-28) mmol/L ABG O2 Saturation 99.1 H (95-98) % ABG Base Excess -11.5 L (-2.0-3.0) mmol/L Devon Test Lra ABG Potassium 4.1 (3.6-5.2) mmol/L A-a O2 Difference 286.0 mm/Hg Respiratory Index 3.1 Glucose 97 (75-110) mg/dl Lactate 1.0 (0.7-2.1) mmol/L Vent Mode Bipap FiO2 60.0 % Inspiratory BiPAP 21 Expiratory BiPAP 5 Sodium 150.0 H 153 H (132-148) mmol/L Potassium 4.5 (3.6-5.2) mmol/L Chloride 125.0 H 120 H (98-107) mmol/L Carbon Dioxide 22 (22-30) mmol/L Anion Gap 16 (10-20) BUN 62 H (9-20) mg/dL Creatinine 3.2 H (0.8-1.5) mg/dL Est GFR ( Amer) 23 Est GFR (Non-Af Amer) 19 Random Glucose 82 (75-110) mg/dL Calcium 7.7 L (8.6-10.4) mg/dl Phosphorus 3.0 (2.5-4.5) mg/dL Magnesium 1.9 (1.6-2.3) mg/dL Total Bilirubin 1.0 (0.2-1.3) mg/dL AST 53 (17-59) U/L ALT 34 (21-72) U/L Alkaline Phosphatase 123 (38-126) U/L Total Protein 5.3 L (6.3-8.3) g/dL Albumin 2.0 L (3.5-5.0) g/dL Globulin 3.3 (2.2-3.9) gm/dL Albumin/Globulin Ratio 0.6 L (1.0-2.1) Arterial Blood Potassium 4.1 (3.6-5.2) mmol/L Ur Strep pneumoniae Ag 11/08/17 Range/Units 10:51 WBC (4.8-10.8) K/uL RBC (4.40-5.90) Mil/uL Hgb (12.0-18.0) g/dL Hct (35.0-51.0) % MCV (80.0-94.0) fL MCH (27.0-31.0) pg MCHC (33.0-37.0) g/dL RDW (11.5-14.5) % Plt Count (130-400) K/uL MPV (7.2-11.7) fL Neut % (Auto) (50.0-75.0) % Lymph % (Auto) (20.0-40.0) % Ransom % (Auto) (0.0-10.0) % Eos % (Auto) (0.0-4.0) % Baso % (Auto) (0.0-2.0) % Neut # (Auto) (1.8-7.0) K/uL Lymph # (Auto) (1.0-4.3) K/uL Ransom # (Auto) (0.0-0.8) K/uL Eos # (Auto) (0.0-0.7) K/uL Baso # (Auto) (0.0-0.2) K/uL Neutrophils % (Manual) (50-75) % Band Neutrophils % (0-2) % Lymphocytes % (Manual) Monocytes % (Manual) (0-10) % Platelet Estimate (NORMAL) Polychromasia Hypochromasia (manual) Anisocytosis (manual) Target Cells Tear Drop Cells Ovalocytes [place] Cells Puncture Site pCO2 (35-45) mm/Hg pO2 (80-100) mm/Hg HCO3 (21-28) mmol/L ABG pH (7.35-7.45) ABG Total CO2 (22-28) mmol/L ABG O2 Saturation (95-98) % ABG Base Excess (-2.0-3.0) mmol/L Devon Test ABG Potassium (3.6-5.2) mmol/L A-a O2 Difference mm/Hg Respiratory Index Glucose (75-110) mg/dl Lactate (0.7-2.1) mmol/L Vent Mode FiO2 % Inspiratory BiPAP Expiratory BiPAP Sodium (132-148) mmol/L Potassium (3.6-5.2) mmol/L Chloride (98-107) mmol/L Carbon Dioxide (22-30) mmol/L Anion Gap (10-20) BUN (9-20) mg/dL Creatinine (0.8-1.5) mg/dL Est GFR ( Amer) Est GFR (Non-Af Amer) Random Glucose (75-110) mg/dL Calcium (8.6-10.4) mg/dl Phosphorus (2.5-4.5) mg/dL Magnesium (1.6-2.3) mg/dL Total Bilirubin (0.2-1.3) mg/dL AST (17-59) U/L ALT (21-72) U/L Alkaline Phosphatase (38-126) U/L Total Protein (6.3-8.3) g/dL Albumin (3.5-5.0) g/dL Globulin (2.2-3.9) gm/dL Albumin/Globulin Ratio (1.0-2.1) Arterial Blood Potassium (3.6-5.2) mmol/L Ur Strep pneumoniae Ag Not detected Laboratory Results - last 24 hr 11/08/17 11/11/17 11/11/17 10:51 05:50 05:57 WBC 41.3 H* RBC 3.56 L Hgb 10.7 L Hct 33.2 L MCV 93.4 MCH 30.1 MCHC 32.2 L RDW 16.7 H Plt Count 53 L MPV 11.5 Neut % (Auto) 98.0 H Lymph % (Auto) 1.1 L Ransom % (Auto) 0.6 Eos % (Auto) 0.0 Baso % (Auto) 0.3 Neut # (Auto) 40.5 H Lymph # (Auto) 0.4 L Ransom # (Auto) 0.3 Eos # (Auto) 0.0 Baso # (Auto) 0.1 Neutrophils % (Manual) 78 H Band Neutrophils % 16 H* Lymphocytes % (Manual) TEST NOT PERFORMED Monocytes % (Manual) 6 Platelet Estimate Decreased L Polychromasia Slight Hypochromasia (manual) Slight Anisocytosis (manual) Slight Target Cells Slight Tear Drop Cells Slight Ovalocytes Slight [place] Cells Slight Puncture Site pCO2 pO2 HCO3 ABG pH ABG Total CO2 ABG O2 Saturation ABG Base Excess [place] Test ABG Potassium A-a O2 Difference Respiratory Index Glucose Lactate Vent Mode FiO2 Inspiratory BiPAP Expiratory BiPAP Sodium 153 H Potassium 4.5 Chloride 120 H Carbon Dioxide 22 Anion Gap 16 BUN 62 H Creatinine 3.2 H Est GFR ( Amer) 23 Est GFR (Non-Af Amer) 19 Random Glucose 82 Calcium 7.7 L Phosphorus 3.0 Magnesium 1.9 Total Bilirubin 1.0 AST 53 ALT 34 Alkaline Phosphatase 123 Total Protein 5.3 L Albumin 2.0 L Globulin 3.3 Albumin/Globulin Ratio 0.6 L Arterial Blood Potassium Ur Strep pneumoniae Ag Not detected 11/11/17 13:15 WBC RBC Hgb Hct MCV MCH MCHC RDW Plt Count MPV Neut % (Auto) Lymph % (Auto) Ransom % (Auto) Eos % (Auto) Baso % (Auto) Neut # (Auto) Lymph # (Auto) Ransom # (Auto) Eos # (Auto) Baso # (Auto) Neutrophils % (Manual) Band Neutrophils % Lymphocytes % (Manual) Monocytes % (Manual) Platelet Estimate Polychromasia Hypochromasia (manual) Anisocytosis (manual) Target Cells Tear Drop Cells Ovalocytes [place] Cells Puncture Site Na pCO2 41 pO2 91 HCO3 15.9 L ABG pH 7.20 L ABG Total CO2 17.3 L ABG O2 Saturation 99.1 H ABG Base Excess -11.5 L Devon Test Lra ABG Potassium 4.1 A-a O2 Difference 286.0 Respiratory Index 3.1 Glucose 97 Lactate 1.0 Vent Mode Bipap FiO2 60.0 Inspiratory BiPAP 21 Expiratory BiPAP 5 Sodium 150.0 H Potassium Chloride 125.0 H Carbon Dioxide Anion Gap BUN Creatinine Est GFR ( Amer) Est GFR (Non-Af Amer) Random Glucose Calcium Phosphorus Magnesium Total Bilirubin AST ALT Alkaline Phosphatase Total Protein Albumin Globulin Albumin/Globulin Ratio Arterial Blood Potassium 4.1 Ur Strep pneumoniae Ag Attending/Attestation - Attestation I have personally seen and examined this patient.: Yes I have fully participated in the care of the patient.: Yes I have reviewed all pertinent clinical information: Yes Notes (Text): 11/11/17 The Patient was seen and examined at the bedside, Medical records reviewed, and management issues were discussed and formulated with the house staff. I have reviewed all the relevant clinical, laboratory, hemodynamic, radiographic data and medications Events reviewed Patient hypotensive and Tachcardic Likely severe sepsis from Klebsiella in blood and sputum Code status reviewed Continue IV hydrations and IV antibiotics Meropenem 1 gm IVPB Q12H VANE Azithromycin 500 mg IVPB Q24H VANE Continue with current management, Medications, reviewed. <Alexia Figueroa Vanessa - Last Filed: 11/12/17 23:30> CCU Objective - Vital Signs / Intake & Output Intake and Output (Last 8hrs): Intake & Output 11/12/17 11/12/17 11/13/17 14:59 22:59 06:59 Intake Total 502.4 Balance 502.4 Intake: Intake, IV Amount 502.4 Left Hand 420 Right Antecubital 82.4 - Patient Studies Lab Studies: Lab Studies 11/12/17 11/12/17 11/12/17 Range/Units 10:19 06:11 06:11 WBC 34.7 H (4.8-10.8) K/uL RBC 3.08 L (4.40-5.90) Mil/uL Hgb 9.3 L (12.0-18.0) g/dL Hct 28.8 L (35.0-51.0) % MCV 93.4 (80.0-94.0) fL MCH 30.2 (27.0-31.0) pg MCHC 32.3 L (33.0-37.0) g/dL RDW 16.8 H (11.5-14.5) % Plt Count 45 L (130-400) K/uL MPV 11.3 (7.2-11.7) fL Neut % (Auto) 97.0 H (50.0-75.0) % Lymph % (Auto) 2.0 L (20.0-40.0) % Ransom % (Auto) 1.0 (0.0-10.0) % Eos % (Auto) 0.0 (0.0-4.0) % Baso % (Auto) 0.0 (0.0-2.0) % Neut # (Auto) 34.0 H (1.8-7.0) K/uL Lymph # (Auto) 0.5 L (1.0-4.3) K/uL Ransom # (Auto) 0.1 (0.0-0.8) K/uL Eos # (Auto) 0.0 (0.0-0.7) K/uL Baso # (Auto) 0.0 (0.0-0.2) K/uL Neutrophils % (Manual) 84 H (50-75) % Band Neutrophils % 11 H* (0-2) % Lymphocytes % (Manual) 1 L (20-40) % Monocytes % (Manual) 3 (0-10) % Myelocytes % 1 H (0-0) % Toxic Granulation Present Platelet Estimate Decreased L (NORMAL) Poikilocytosis (manual Slight Anisocytosis (manual) Slight Target Cells Slight Ovalocytes Slight [place] Cells Slight Puncture Site Rr pCO2 89 H* (35-45) mm/Hg pO2 212 H (80-100) mm/Hg HCO3 21.1 (21-28) mmol/L ABG pH 7.09 L* (7.35-7.45) ABG Total CO2 29.7 H (22-28) mmol/L ABG O2 Saturation 100.8 H (95-98) % ABG Base Excess -5.0 L (-2.0-3.0) mmol/L [place] Test Pos ABG Potassium 4.3 (3.6-5.2) mmol/L A-a O2 Difference 390.0 mm/Hg Respiratory Index 1.8 Glucose 142 H (75-110) mg/dl Lactate 0.8 (0.7-2.1) mmol/L Vent Mode Bipap FiO2 100.0 % Inspiratory BiPAP 21 Expiratory BiPAP 7 Crit Value Called To Dr dejuan figueroa Crit Value Called By Breana sam ladle filler Crit Value Read Back Y Blood Gas Notified Time 1025 Sodium 152.0 H 155 H (132-148) mmol/L Potassium 4.9 (3.6-5.2) mmol/L Chloride 121.0 H 119 H (98-107) mmol/L Carbon Dioxide 21 L (22-30) mmol/L Anion Gap 21 H (10-20) BUN 69 H (9-20) mg/dL Creatinine 3.3 H (0.8-1.5) mg/dL Est GFR ( Amer) 22 Est GFR (Non-Af Amer) 18 Random Glucose 88 (75-110) mg/dL Calcium 8.1 L (8.6-10.4) mg/dl Phosphorus 3.5 (2.5-4.5) mg/dL Magnesium 1.9 (1.6-2.3) mg/dL Total Bilirubin 1.1 (0.2-1.3) mg/dL AST 42 (17-59) U/L ALT 30 (21-72) U/L Alkaline Phosphatase 139 H (38-126) U/L Total Protein 5.6 L (6.3-8.3) g/dL Albumin 2.6 L D (3.5-5.0) g/dL Globulin 3.0 (2.2-3.9) gm/dL Albumin/Globulin Ratio 0.9 L (1.0-2.1) Arterial Blood Potassium 4.3 (3.6-5.2) mmol/L Laboratory Results - last 24 hr 11/12/17 11/12/17 11/12/17 06:11 06:11 10:19 WBC 34.7 H RBC 3.08 L Hgb 9.3 L Hct 28.8 L MCV 93.4 MCH 30.2 MCHC 32.3 L RDW 16.8 H Plt Count 45 L MPV 11.3 Neut % (Auto) 97.0 H Lymph % (Auto) 2.0 L [place] % (Auto) 1.0 Eos % (Auto) 0.0 Baso % (Auto) 0.0 Neut # (Auto) 34.0 H Lymph # (Auto) 0.5 L [place] # (Auto) 0.1 Eos # (Auto) 0.0 Baso # (Auto) 0.0 Neutrophils % (Manual) 84 H Band Neutrophils % 11 H* Lymphocytes % (Manual) 1 L Monocytes % (Manual) 3 Myelocytes % 1 H Toxic Granulation Present Platelet Estimate Decreased L Poikilocytosis (manual Slight Anisocytosis (manual) Slight Target Cells Slight Ovalocytes Slight [place] Cells Slight Puncture Site Rr pCO2 89 H* pO2 212 H HCO3 21.1 ABG pH 7.09 L* ABG Total CO2 29.7 H ABG O2 Saturation 100.8 H ABG Base Excess -5.0 L [place] Test Pos ABG Potassium 4.3 A-a O2 Difference 390.0 Respiratory Index 1.8 Glucose 142 H Lactate 0.8 Vent Mode Bipap FiO2 100.0 Inspiratory BiPAP 21 Expiratory BiPAP 7 Crit Value Called To Dr dejuan figueroa Crit Value Called By Breana sam ladle filler Crit Value Read Back Y Blood Gas Notified Time 1025 Sodium 155 H 152.0 H Potassium 4.9 Chloride 119 H 121.0 H Carbon Dioxide 21 L Anion Gap 21 H BUN 69 H Creatinine 3.3 H Est GFR ( Amer) 22 Est GFR (Non-Af Amer) 18 Random Glucose 88 Calcium 8.1 L Phosphorus 3.5 Magnesium 1.9 Total Bilirubin 1.1 AST 42 ALT 30 Alkaline Phosphatase 139 H Total Protein 5.6 L Albumin 2.6 L D Globulin 3.0 Albumin/Globulin Ratio 0.9 L Arterial Blood Potassium 4.3 EKG/Cardiology Studies: Cardiology / EKG Studies 11/12/17 03:38 EKG [ELECTROCARDIOGRAM] Stat Comment: Mode Of Transportation: PORTABLE Reason For Exam: rhythm changes, PVC's Isolation: Contact Attending/Attestation - Attestation I have fully participated in the care of the patient.: Yes I have reviewed all pertinent clinical information: Yes
--- NOTE | 2017-11-11 13:04 | CP.PCM.PN ---
Subjective - Date & Time of Evaluation Date of Evaluation: 11/11/17 Time of Evaluation: 10:00 - Subjective Subjective: Unable to offer complaints due to condition. Objective - Vital Signs/Intake and Output Vital Signs (last 24 hours): Temp Pulse Resp BP Pulse Ox 98.2 F 104 H 20 109/58 L 95 11/11/17 04:00 11/11/17 07:26 11/11/17 10:27 11/11/17 06:52 11/11/17 03:52 Intake and Output: 11/11/17 11/11/17 06:59 18:59 Intake Total 480 40 Output Total 25 Balance 455 40 - Medications Medications: Current Medications Albumin Human (Albumin Human 25% (12.5 Gm/50 Ml)) 25 gm IV Q6H [facility] Stop: 11/12/17 04:16 Last Admin: 11/11/17 10:15 Dose: 25 gm Famotidine (Pepcid) 20 mg IVP DAILY [facility] Last Admin: 11/11/17 12:12 Dose: 20 mg Azithromycin 500 mg/ Sodium (Chloride) 250 mls @ 250 mls/hr IVPB Q24H [facility] PRN Reason: Protocol Stop: 11/12/17 09:59 Last Admin: 11/11/17 09:00 Dose: 250 mls/hr Meropenem 1 gm/ Sodium (Chloride) 100 mls @ 100 mls/hr IVPB Q12H [facility] PRN Reason: Protocol Last Admin: 11/11/17 01:09 Dose: 100 mls/hr Dextrose/Lactated Ringer's (Dextrose 5%/Lactated Ringer's) 1,000 mls @ 40 mls/ hr IV .Q24H [facility] Last Admin: 11/11/17 10:11 Dose: 40 mls/hr - Labs Labs: 11/11/17 05:50 11/11/17 05:57 PT 17.1 SECONDS (9.7-12.2) H 11/08/17 02:40 INR 1.5 11/08/17 02:40 APTT 30 SECONDS (21-34) 11/08/17 02:40 - Constitutional Appears: Chronically Ill - Head Exam Head Exam: ATRAUMATIC, NORMAL INSPECTION, NORMOCEPHALIC - Eye Exam Eye Exam: EOMI, Normal appearance, PERRL Pupil Exam: NORMAL ACCOMODATION, PERRL - ENT Exam ENT Exam: Mucous Membranes Dry - Neck Exam Neck Exam: Normal Inspection - Respiratory Exam Respiratory Exam: Decreased Breath Sounds - Cardiovascular Exam Cardiovascular Exam: Tachycardia - GI/Abdominal Exam GI & Abdominal Exam: Diminished Bowel Sounds - Rectal Exam Rectal Exam: Deferred - Exam Additional comments: Morales cath - Extremities Exam Extremities Exam: Pedal Edema - Back Exam Back Exam: NORMAL INSPECTION - Neurological Exam Neurological Exam: Altered - Psychiatric Exam Psychiatric exam: Flat Affect - Skin Skin Exam: Pallor Assessment and Plan - Assessment and Plan (Free Text) Assessment: Patient seen and examined in bed, looking very ill. Skin is pale, hb 10.7. Patient was hypotensive over night . BP 109/57, HR 107. WBC up to 41.3 despite all IV antibiotics on board. Platelets low at 53 placing patient at risk for abnormal bleeding. Kidney functions are worsening, BUN 62, Coil Cleaner 3.2. The hospice care was recommended by the ICU team. Today I received faxed POLST signed by patient's niece Magalys, indicating DNR/DNI. I discussed patient's current clinical presentation and danielle quality of life concerns. She agreed that she would not want patient to continue current medical treatement as he is not responding to it and agreed with comfort measures, than she cried. I offered emotional support. These was discussed to ICU team, Haley housing case manager and Briana housing case manager. Impression * Patient' condition is declining despite all prudent intervention * Comfort care suggested and agreed with by patient's niece Magalys * POLST on chart ( faxed copy) indicating DNR/DNI Suggestions * Would transfer patient to hospice care and allow comfortable, natural * DNR/DNI
[2017-11-11] MEDS: DOPamine 400mg/250ml D5W 400 MG/250 ML BAG IV ONE ×2 (13:15→17:10)
[2017-11-11 13:18] LABS: ABG ALLEN TEST LRA; ARTERIAL BLOOD GAS HCO3 15.9 mmol/L (21-28); ARTERIAL BLOOD GAS O2 SAT 99.1 % (95-98); ARTERIAL BLOOD GAS PCO2 41 mm/Hg (35-45); ARTERIAL BLOOD GAS PO2 91 mm/Hg (80-100); ARTERIAL BLOOD GAS TCO2 17.3 mmol/L (22-28)
[2017-11-11] MEDS ORDERED: Sodium Bicarbonate (8.4%) 50 Meq Syringe IVP ONE (13:22)
[2017-11-11] MEDS: DOPamine 400mg/250ml D5W 400 MG/250 ML BAG IV PRN (13:30)
--- NOTE | 2017-11-11 14:25 | CP.PCM.CON ---
History of Present Illness - History of Present Illness History of Present Illness: This is an 82 year old man admitted with hypotension, A fib with rapid VR, with inability to eat. Patient is currently lethargic and cannot provide details of the history. Patient was transferred from [place] on 11/08/2017 with temp 101.8, BP 95/30. Sepsid was diagnosed based on elevated WBC count and lactate level, and he was treated with vanco, zosyn, and axithromycin. Subsequently, the WBC increased to 41,[address] of [address] scan showed multiple pulmonary nodules and masses. BP dropped to 90/69 today. Palliative care discussed the situation with the niece today, and patient was made DNR/DNI and transfer to hospice was ordered. Review of Systems - Review of Systems Systems not reviewed;Unavailable: Altered Mental Status Past Patient History - Infectious Disease Hx of Infectious Diseases: None - Past Medical History & Family History Past Medical History?: Yes - Past Social History Smoking Status: Unknown If Ever Smoked - CARDIAC Hx Cardiac Disorders: Yes Hx Hypercholesterolemia: Yes Hx Hypertension: Yes Other/Comment: Acute Ischemic Heart disease - PULMONARY Hx Respiratory Disorders: No - NEUROLOGICAL Hx Neurological Disorder: Yes Hx Vertigo: Yes Other/Comment: Cerebral Infarction - HEENT Hx HEENT Problems: Yes Hx Blind: Yes (L eye) Hx Cataracts: Yes (bilateral) - RENAL Hx Chronic Kidney Disease: Yes - ENDOCRINE/METABOLIC Hx Endocrine Disorders: No - HEMATOLOGICAL/ONCOLOGICAL Hx Blood Disorders: Yes Hx Anemia: Yes - INTEGUMENTARY Hx Dermatological Problems: No - MUSCULOSKELETAL/RHEUMATOLOGICAL Hx Falls: Yes - GASTROINTESTINAL Hx Gastrointestinal Disorders: Yes Hx Gastroesophageal Reflux: Yes - GENITOURINARY/GYNECOLOGICAL Hx Prostate Problems: Yes (enlarged) - PSYCHIATRIC Hx Psychophysiologic Disorder: Yes Hx Bipolar Disorder: Yes - SURGICAL HISTORY Hx Surgeries: No - ANESTHESIA Hx Anesthesia: No Hx Anesthesia Reactions: No (n/a) Meds Allergies/Adverse Reactions: Allergies Allergy/AdvReac Type Severity Reaction Status Date / Time No Known Allergies Allergy Unverified 11/08/17 02:23 - Medications Medications: Current Medications Albumin Human (Albumin Human 25% (12.5 Gm/50 Ml)) 25 gm IV Q6H [facility] Stop: 11/12/17 04:16 Last Admin: 11/11/17 10:15 Dose: 25 gm Famotidine (Pepcid) 20 mg IVP DAILY [facility] Last Admin: 11/11/17 12:12 Dose: 20 mg Azithromycin 500 mg/ Sodium (Chloride) 250 mls @ 250 mls/hr IVPB Q24H [facility] PRN Reason: Protocol Stop: 11/12/17 09:59 Last Admin: 11/11/17 09:00 Dose: 250 mls/hr Meropenem 1 gm/ Sodium (Chloride) 100 mls @ 100 mls/hr IVPB Q12H [facility] PRN Reason: Protocol Last Admin: 11/11/17 14:19 Dose: 100 mls/hr Dextrose/Lactated Ringer's (Dextrose 5%/Lactated Ringer's) 1,000 mls @ 40 mls/ hr IV .Q24H [facility] Last Admin: 11/11/17 10:11 Dose: 40 mls/hr Physical Exam - Constitutional Appears: Other Additional comments: Obtunded - Head Exam Head Exam: ATRAUMATIC, NORMOCEPHALIC - Neck Exam Neck exam: Negative for: Lymphadenopathy, Thyromegaly - Respiratory Exam Respiratory Exam: NORMAL BREATHING PATTERN. absent: Rales, Rhonchi, Wheezes - Cardiovascular Exam Cardiovascular Exam: REGULAR RHYTHM, +S1, +S2. absent: Gallop, Rubs, Systolic Murmur - GI/Abdominal Exam GI & Abdominal Exam: Normal Bowel Sounds, Soft. absent: Mass, Organomegaly, Tenderness - Rectal Exam Rectal Exam: Deferred - Extremities Exam Extremities exam: Negative for: calf tenderness, pedal edema Results - Vital Signs Recent Vital Signs: Last Vital Signs Temp 98.2 F 11/11/17 04:00 Pulse 102 H 11/11/17 13:25 Resp 24 11/11/17 13:15 BP 88/50 L 11/11/17 13:15 Pulse Ox 91 L 11/11/17 13:15 - Labs Result Diagrams: 11/11/17 05:50 11/11/17 05:57 Labs: Laboratory Results - last 24 hr 11/08/17 11/08/17 11/10/17 10:51 10:51 14:21 WBC 32.9 H RBC 3.49 L Hgb 10.5 L Hct 32.5 L MCV 93.1 D MCH 30.1 MCHC 32.4 L RDW 16.7 H Plt Count 54 L MPV 10.8 Neut % (Auto) 98.2 H Lymph % (Auto) 0.8 L [place] % (Auto) 0.2 Eos % (Auto) 0.3 Baso % (Auto) 0.5 Neut # (Auto) 32.3 H Lymph # (Auto) 0.3 L [place] # (Auto) 0.1 Eos # (Auto) 0.1 Baso # (Auto) 0.2 Neutrophils % (Manual) 33 L Band Neutrophils % 43 H* Lymphocytes % (Manual) 1 L Monocytes % (Manual) 23 H Platelet Estimate Decreased L Polychromasia Hypochromasia (manual) Slight Poikilocytosis (manual Slight Anisocytosis (manual) Slight Target Cells Slight Tear Drop Cells Slight Ovalocytes Slight [place] Cells Slight Puncture Site pCO2 pO2 HCO3 ABG pH ABG Total CO2 ABG O2 Saturation ABG Base Excess [place] Test ABG Potassium A-a O2 Difference Respiratory Index Glucose Lactate Vent Mode FiO2 Inspiratory BiPAP Expiratory BiPAP Sodium Potassium Chloride Carbon Dioxide Anion Gap BUN Creatinine Est GFR ( Amer) Est GFR (Non-Af Amer) Random Glucose Calcium Phosphorus Magnesium Total Bilirubin AST ALT Alkaline Phosphatase Total Protein Albumin Globulin Albumin/Globulin Ratio Arterial Blood Potassium Mycoplasma pneumon IgG 2.71 H Mycoplasma pneumon IgM 39 Ur Strep pneumoniae Ag Not detected 11/11/17 11/11/17 11/11/17 05:50 05:57 13:15 WBC 41.3 H* RBC 3.56 L Hgb 10.7 L Hct 33.2 L MCV 93.4 MCH 30.1 MCHC 32.2 L RDW 16.7 H Plt Count 53 L MPV 11.5 Neut % (Auto) 98.0 H Lymph % (Auto) 1.1 L [place] % (Auto) 0.6 Eos % (Auto) 0.0 Baso % (Auto) 0.3 Neut # (Auto) 40.5 H Lymph # (Auto) 0.4 L [place] # (Auto) 0.3 Eos # (Auto) 0.0 Baso # (Auto) 0.1 Neutrophils % (Manual) 78 H Band Neutrophils % 16 H* Lymphocytes % (Manual) TEST NOT PERFORMED Monocytes % (Manual) 6 Platelet Estimate Decreased L Polychromasia Slight Hypochromasia (manual) Slight Poikilocytosis (manual Anisocytosis (manual) Slight Target Cells Slight Tear Drop Cells Slight Ovalocytes Slight [place] Cells Slight Puncture Site Na pCO2 41 pO2 91 HCO3 15.9 L ABG pH 7.20 L ABG Total CO2 17.3 L ABG O2 Saturation 99.1 H ABG Base Excess -11.5 L [place] Test Lra ABG Potassium 4.1 A-a O2 Difference 286.0 Respiratory Index 3.1 Glucose 97 Lactate 1.0 Vent Mode Bipap FiO2 60.0 Inspiratory BiPAP 21 Expiratory BiPAP 5 Sodium 153 H 150.0 H Potassium 4.5 Chloride 120 H 125.0 H Carbon Dioxide 22 Anion Gap 16 BUN 62 H Creatinine 3.2 H Est GFR ( Amer) 23 Est GFR (Non-Af Amer) 19 Random Glucose 82 Calcium 7.7 L Phosphorus 3.0 Magnesium 1.9 Total Bilirubin 1.0 AST 53 ALT 34 Alkaline Phosphatase 123 Total Protein 5.3 L Albumin 2.0 L Globulin 3.3 Albumin/Globulin Ratio 0.6 L Arterial Blood Potassium 4.1 Mycoplasma pneumon IgG Mycoplasma pneumon IgM Ur Strep pneumoniae Ag Assessment & Plan (1) Dysphagia Assessment and Plan: Patient seems moribund. He is not a candidate for PEG insertion, and family is opposed to long-term artificial nutrition. At this point, family has requested transfer to hospice. I do not think that NG tube placement will be of benefit. Status: Acute
--- NOTE | 2017-11-11 19:08 | CP.PCM.PN ---
Subjective - Date & Time of Evaluation Date of Evaluation: 11/11/17 Time of Evaluation: 08:00 - Subjective Subjective: obtunded on bipap Klebsiella in blood and sputum IV rx in progress Objective - Vital Signs/Intake and Output Vital Signs (last 24 hours): Temp Pulse Resp BP Pulse Ox 98.2 F 122 H 20 137/76 100 11/11/17 04:00 11/11/17 18:30 11/11/17 18:30 11/11/17 18:30 11/11/17 18:00 Intake and Output: 11/11/17 11/12/17 18:59 06:59 Intake Total 516.82 Balance 516.82 - Medications Medications: Current Medications Albumin Human (Albumin Human 25% (12.5 Gm/50 Ml)) 25 gm IV Q6H [facility] Stop: 11/12/17 04:16 Last Admin: 11/11/17 16:45 Dose: 25 gm Famotidine (Pepcid) 20 mg IVP DAILY [facility] Last Admin: 11/11/17 12:12 Dose: 20 mg Azithromycin 500 mg/ Sodium (Chloride) 250 mls @ 250 mls/hr IVPB Q24H [facility] PRN Reason: Protocol Stop: 11/12/17 09:59 Last Admin: 11/11/17 09:00 Dose: 250 mls/hr Meropenem 1 gm/ Sodium (Chloride) 100 mls @ 100 mls/hr IVPB Q12H [facility] PRN Reason: Protocol Last Admin: 11/11/17 14:19 Dose: 100 mls/hr Dextrose/Lactated Ringer's (Dextrose 5%/Lactated Ringer's) 1,000 mls @ 40 mls/ hr IV .Q24H [facility] Last Admin: 11/11/17 10:11 Dose: 40 mls/hr Dopamine HCl/Dextrose (Dopamine 400mg/250ml D5w) 400 mg in 250 mls @ 0 mls/hr IV .Q0M PRN; Protocol; Per Protocol PRN Reason: TITRATE PER MD ORDER Last Titration: 11/11/17 17:12 Dose: 24.3 mls/hr Sodium Bicarbonate 150 meq/ (Dextrose) 1,000 mls @ 100 mls/hr IV .Q10H [facility] - Labs Labs: 11/11/17 05:50 11/11/17 05:57 PT 17.1 SECONDS (9.7-12.2) H 11/08/17 02:40 INR 1.5 11/08/17 02:40 APTT 30 SECONDS (21-34) 11/08/17 02:40 - Constitutional Appears: Confused, Chronically Ill - Head Exam Head Exam: NORMOCEPHALIC - Eye Exam Eye Exam: PERRL. absent: Scleral icterus - ENT Exam ENT Exam: Mucous Membranes Dry - Neck Exam Neck Exam: absent: Lymphadenopathy - Respiratory Exam Respiratory Exam: Decreased Breath Sounds, Prolonged Expiratory Phase, Rhonchi, Wheezes - Cardiovascular Exam Cardiovascular Exam: REGULAR RHYTHM - GI/Abdominal Exam GI & Abdominal Exam: Distended, Soft. absent: Tenderness - Rectal Exam Rectal Exam: Deferred - Exam Exam: NORMAL INSPECTION - Extremities Exam Extremities Exam: absent: Pedal Edema - Back Exam Back Exam: absent: CVA tenderness (L), CVA tenderness (R) - Neurological Exam Neurological Exam: Altered - Psychiatric Exam Psychiatric exam: Depressed - Skin Skin Exam: Dry Assessment and Plan (1) UTI (urinary tract infection) Status: Acute (2) Pneumonia Status: Acute (3) Altered mental status, unspecified Status: Acute (4) Atrial fibrillation with rapid ventricular response Status: Acute (5) Sepsis Status: Acute - Assessment and Plan (Free Text) Assessment: iv antibiotics ordered discussed with Dr Mcginnis
[2017-11-11] MEDS ORDERED: Sodium Bicarbonate (8.4%) 50 Meq Syringe ONE (19:18)
[2017-11-11] MEDS ORDERED: Ciprofloxacin 400mg/200ml D5W 400 MG/200 ML BAG IVPB SCH (20:00)
[2017-11-11] MEDS: Sodium Bicarbonate 8.4% 150 MEQ in Dextrose 5% In Water 850 ML IV SCH (20:00)
--- NOTE | 2017-11-11 20:49 | CP.PCM.PN ---
Subjective - Date & Time of Evaluation Date of Evaluation: 11/11/17 Time of Evaluation: 13:00 - Subjective Subjective: Patient hypotensive today; mental status remains clouded; still on BIPAP; awaiting hospice decision; Objective - Vital Signs/Intake and Output Vital Signs (last 24 hours): Temp Pulse Resp BP Pulse Ox 97.0 F L 124 H 18 132/74 100 11/11/17 16:00 11/11/17 20:00 11/11/17 19:30 11/11/17 19:30 11/11/17 18:00 Intake and Output: 11/11/17 11/12/17 18:59 06:59 Intake Total 516.82 40 Output Total 5 Balance 516.82 35 - Medications Medications: Current Medications Albumin Human (Albumin Human 25% (12.5 Gm/50 Ml)) 25 gm IV Q6H [facility] Stop: 11/12/17 04:16 Last Admin: 11/11/17 16:45 Dose: 25 gm Famotidine (Pepcid) 20 mg IVP DAILY [facility] Last Admin: 11/11/17 12:12 Dose: 20 mg Meropenem 1 gm/ Sodium (Chloride) 100 mls @ 100 mls/hr IVPB Q12H [facility] PRN Reason: Protocol Last Admin: 11/11/17 14:19 Dose: 100 mls/hr Dextrose/Lactated Ringer's (Dextrose 5%/Lactated Ringer's) 1,000 mls @ 40 mls/ hr IV .Q24H [facility] Last Admin: 11/11/17 10:11 Dose: 40 mls/hr Dopamine HCl/Dextrose (Dopamine 400mg/250ml D5w) 400 mg in 250 mls @ 0 mls/hr IV .Q0M PRN; Protocol; Per Protocol PRN Reason: TITRATE PER MD ORDER Last Titration: 11/11/17 17:12 Dose: 24.3 mls/hr Sodium Bicarbonate 150 meq/ (Dextrose) 1,000 mls @ 100 mls/hr IV .Q10H [facility] Last Admin: 11/11/17 20:00 Dose: 100 mls/hr Ciprofloxacin (Cipro 400mg/200ml Dsw) 400 mg in 200 mls @ 200 mls/hr IVPB Q24H [facility] PRN Reason: Protocol Last Admin: 11/11/17 20:11 Dose: 200 mls/hr - Labs Labs: 11/11/17 05:50 11/11/17 05:57 PT 17.1 SECONDS (9.7-12.2) H 11/08/17 02:40 INR 1.5 11/08/17 02:40 APTT 30 SECONDS (21-34) 11/08/17 02:40 - Constitutional Appears: In Acute Distress - Respiratory Exam Additional comments: Decreased breath sounds; - Cardiovascular Exam Cardiovascular Exam: Irregular Rhythm Additional comments: muffled heart sounds - GI/Abdominal Exam GI & Abdominal Exam: Soft. absent: Distended - Extremities Exam Additional comments: upper ext edema b/l - Neurological Exam Neurological Exam: Alert, Awake - Psychiatric Exam Psychiatric exam: absent: Agitated - Skin Skin Exam: Warm. absent: Cyanosis Assessment and Plan (1) Acute renal failure Assessment & Plan: Clinically ATN, oliguric renal failure; relatively stable lytes, now hypotensive and requiring pressors; no urgent indication for starting [employer]; family doesn't want aggressive care but still awaiting final hospice determination; if family elects for HD, will likely need to start within next 24 hrs; Status: Acute (2) Hypernatremia Assessment & Plan: Progressive, will worsen further with bicarb pushes; needs additional hypotonic IVF; Status: Acute (3) Acute hypoxemic respiratory failure Status: Acute (4) Atrial fibrillation with rapid ventricular response Status: Acute (5) Sepsis Status: Acute
--- NOTE | 2017-11-11 22:50 | CP.PCM.PN ---
Subjective - Date & Time of Evaluation Date of Evaluation: 11/11/17 Time of Evaluation: 12:30 Objective - Vital Signs/Intake and Output Vital Signs (last 24 hours): Temp Pulse Resp BP Pulse Ox 98.2 F 123 H 18 127/80 99 11/11/17 20:00 11/11/17 22:05 11/11/17 22:00 11/11/17 22:00 11/11/17 22:00 Intake and Output: 11/11/17 11/12/17 18:59 06:59 Intake Total 516.82 509.6 Output Total 5 Balance 516.82 504.6 - Medications Medications: Current Medications Albumin Human (Albumin Human 25% (12.5 Gm/50 Ml)) 25 gm IV Q6H [facility] Stop: 11/12/17 04:16 Last Admin: 11/11/17 21:53 Dose: 25 gm Famotidine (Pepcid) 20 mg IVP DAILY [facility] Last Admin: 11/11/17 12:12 Dose: 20 mg Meropenem 1 gm/ Sodium (Chloride) 100 mls @ 100 mls/hr IVPB Q12H [facility] PRN Reason: Protocol Last Admin: 11/11/17 14:19 Dose: 100 mls/hr Dextrose/Lactated Ringer's (Dextrose 5%/Lactated Ringer's) 1,000 mls @ 40 mls/ hr IV .Q24H [facility] Last Admin: 11/11/17 10:11 Dose: 40 mls/hr Dopamine HCl/Dextrose (Dopamine 400mg/250ml D5w) 400 mg in 250 mls @ 0 mls/hr IV .Q0M PRN; Protocol; Per Protocol PRN Reason: TITRATE PER MD ORDER Last Titration: 11/11/17 22:03 Dose: 6.2 mls/hr Sodium Bicarbonate 150 meq/ (Dextrose) 1,000 mls @ 100 mls/hr IV .Q10H [facility] Last Admin: 11/11/17 20:00 Dose: 100 mls/hr Ciprofloxacin (Cipro 400mg/200ml Dsw) 400 mg in 200 mls @ 200 mls/hr IVPB Q24H [facility] PRN Reason: Protocol Last Admin: 11/11/17 20:11 Dose: 200 mls/hr - Labs Labs: 11/11/17 05:50 11/11/17 05:57 PT 17.1 SECONDS (9.7-12.2) H 11/08/17 02:40 INR 1.5 11/08/17 02:40 APTT 30 SECONDS (21-34) 11/08/17 02:40
[2017-11-12] MEDS: Meropenem 1 GM in Sodium Chloride 0.9% 100 ML IVPB SCH (01:55)
[2017-11-12] MEDS: Sodium Bicarbonate 8.4% 150 MEQ in Dextrose 5% In Water 850 ML IV SCH (04:34)
[2017-11-12] MEDS: Albumin Human 25% (12.5 gm/50 ml) IV SCH (04:35)
[2017-11-12 06:37] LABS: ALB/GLOB RATIO 0.9 (1.0-2.1); ALBUMIN 2.6 g/dL (3.5-5.0); CALCIUM 8.1 mg/dl (8.6-10.4)
[2017-11-12 06:39] LABS: HEMOGLOBIN 9.3 g/dL (12.0-18.0); MEAN CELL VOLUME 93.4 fL (80.0-94.0); MEAN CORPUSCULAR HEMOGLOBIN 30.2 pg (27.0-31.0); MEAN CORPUSCULAR HGB CONC 32.3 g/dL (33.0-37.0); MEAN PLATELET VOLUME 11.3 fL (7.2-11.7); PLATELET COUNT 45 K/uL (130-400); RBC 3.08 Mil/uL (4.40-5.90); RED CELL DISTRIBUTION WIDTH 16.8 % (11.5-14.5); WHITE BLOOD COUNT 34.7 K/uL (4.8-10.8)
[2017-11-12 09:01] LABS: LYMPH # 0.5 K/uL (1.0-4.3); MONO # 0.1 K/uL (0.0-0.8)
[2017-11-12 09:07] LABS: BANDS 11 % (0-2); LYMPHOCYTE 1 % (20-40); MONOCYTE 3 % (0-10); MYELOCYTE 1 % (0-0); NEUTROPHIL 84 % (50-75); PLATELET ESTIMATE DECREASED (NORMAL); TOTAL CELLS COUNTED 100
[2017-11-12 09:08] LABS: ANISOCYTOSIS SLIGHT; BURR CELLS SLIGHT; OVALOCYTES SLIGHT; POIKILOCYTOSIS SLIGHT; TARGET CELLS SLIGHT; TOXIC GRANULATION PRESENT
[2017-11-12] MEDS: DOPamine 400mg/250ml D5W 400 MG/250 ML BAG IV PRN (09:18)
--- NOTE | 2017-11-12 10:20 | RAD ---
HISTORY: sob COMPARISON: No prior. FINDINGS: LUNGS: Extensive bilateral pulmonary opacity, perihilar and lung bases sparing the lung apices. There are some vague nodular opacities seen in both lung apices. Nonspecific. PLEURA: Small left pleural effusion. No evidence of right pleural effusion. No pneumothorax. CARDIOVASCULAR: Normal. OSSEOUS STRUCTURES: No significant abnormalities. VISUALIZED UPPER ABDOMEN: Normal. OTHER FINDINGS: None. IMPRESSION: Extensive bilateral perihilar and basilar opacity with vague nodular opacities in both lung apices. Small left pleural effusion. Nonspecific findings. Pulmonary edema versus pneumonia.
[2017-11-12 10:23] LABS: ABG ALLEN TEST POS; ARTERIAL BLOOD GAS HCO3 21.1 mmol/L (21-28); ARTERIAL BLOOD GAS O2 SAT 100.8 % (95-98); ARTERIAL BLOOD GAS PCO2 89 mm/Hg (35-45); ARTERIAL BLOOD GAS PH 7.09 (7.35-7.45); ARTERIAL BLOOD GAS PO2 212 mm/Hg (80-100); ARTERIAL BLOOD GAS TCO2 29.7 mmol/L (22-28)
[2017-11-12] MEDS: Dextrose 5%/Lactated Ringer's 1,000 ML IV SCH (11:35)
--- NOTE | 2017-11-12 12:34 | CP.CCUPN ---
<Maile Jones - Last Filed: 11/12/17 15:31> CCU Subjective - Physician Review Subjective (Free Text): 11/12/17 10:45 Patient seen and examined at bedside. Patient still on Dopamine drip. Yesterday patient failed high flow, he became acidotic. Bicarb was started. Currently on bipap. Hospice evaluation in progress. CCU Objective - Vital Signs / Intake & Output Vital Signs (Last 4 hours): Vital Signs Pulse BP 11/12/17 11:48 80 11/12/17 09:18 86 105/45 L Intake and Output (Last 8hrs): Intake & Output 11/11/17 11/12/17 11/12/17 22:59 06:59 14:59 Intake Total 882.32 837.1 Output Total 5 45 Balance 877.32 792.1 Weight 59.874 kg Intake: IV 179 71 Intake, IV Amount 703.32 766.1 Left Hand 590 700 Right Antecubital 113.32 66.1 Output: Urine 5 45 Urethral (Morales) 5 45 - Physical Exam Other physical findings (Free Text): - Physical Exam Other physical findings (Free Text): - Physical Exam Other physical findings (Free Text): - Head Exam Additional comments: 3 salina holes left frontal skull - Eye Exam Eye Exam: EOMI - ENT Exam ENT Exam: Mucous Membranes Dry, BIPAP - Neck Exam Neck exam: Positive for: Normal Inspection - Respiratory Exam Respiratory Exam: Decreased breath sounds, Respiratory Distress. absent: Rales , Rhonchi, Wheezes - Cardiovascular Exam Cardiovascular Exam: Tachycardia, +S1, +S2, Irregular rhythm - GI/Abdominal Exam GI & Abdominal Exam: Normal Bowel Sounds, Soft, Non-tender to palpation - Extremities Exam Extremities exam: Positive for: pedal edema - Neurological Exam Neurological exam: :Lethargic - Medications Active Medications: Active Medications Generic Name Dose Route Start Last Admin Trade Name Freq PRN Reason Stop Dose Admin Famotidine 20 mg 11/08/17 10:00 11/12/17 11:10 Pepcid IVP 20 mg DAILY VANE Administration Meropenem 1 gm/ Sodium 100 mls @ 100 mls/hr 11/09/17 14:00 11/12/17 01:55 Chloride IVPB 100 mls/hr Q12H VANE Administration Protocol Dextrose/Lactated Ringer's 1,000 mls @ 40 mls/hr 11/11/17 09:45 11/12/17 11: 35 Dextrose 5%/Lactated Ringer's IV 40 mls/hr .Q24H VANE Administration Dopamine HCl/Dextrose 400 mg in 250 mls @ 0 mls/hr 11/11/17 17:06 11/12/17 09 :18 Dopamine 400mg/250ml D5w IV 10.3 mls/hr .Q0M PRN Administration TITRATE PER MD ORDER Protocol Per Protocol Ciprofloxacin 400 mg in 200 mls @ 200 mls/hr 11/11/17 20:00 11/11/17 20:11 Cipro 400mg/200ml Dsw IVPB 200 mls/hr Q24H VANE Administration Protocol - Patient Studies Lab Studies: Lab Studies 11/12/17 11/12/17 11/12/17 Range/Units 10:19 06:11 06:11 WBC 34.7 H (4.8-10.8) K/uL RBC 3.08 L (4.40-5.90) Mil/uL Hgb 9.3 L (12.0-18.0) g/dL Hct 28.8 L (35.0-51.0) % MCV 93.4 (80.0-94.0) fL MCH 30.2 (27.0-31.0) pg MCHC 32.3 L (33.0-37.0) g/dL RDW 16.8 H (11.5-14.5) % Plt Count 45 L (130-400) K/uL MPV 11.3 (7.2-11.7) fL Neut % (Auto) 97.0 H (50.0-75.0) % Lymph % (Auto) 2.0 L (20.0-40.0) % Becker % (Auto) 1.0 (0.0-10.0) % Eos % (Auto) 0.0 (0.0-4.0) % Baso % (Auto) 0.0 (0.0-2.0) % Neut # (Auto) 34.0 H (1.8-7.0) K/uL Lymph # (Auto) 0.5 L (1.0-4.3) K/uL Becker # (Auto) 0.1 (0.0-0.8) K/uL Eos # (Auto) 0.0 (0.0-0.7) K/uL Baso # (Auto) 0.0 (0.0-0.2) K/uL Neutrophils % (Manual) 84 H (50-75) % Band Neutrophils % 11 H* (0-2) % Lymphocytes % (Manual) 1 L (20-40) % Monocytes % (Manual) 3 (0-10) % Myelocytes % 1 H (0-0) % Toxic Granulation Present Platelet Estimate Decreased L (NORMAL) Poikilocytosis (manual Slight Anisocytosis (manual) Slight Target Cells Slight Ovalocytes Slight [place] Cells Slight Puncture Site Rr pCO2 89 H* (35-45) mm/Hg pO2 212 H (80-100) mm/Hg HCO3 21.1 (21-28) mmol/L ABG pH 7.09 L* (7.35-7.45) ABG Total CO2 29.7 H (22-28) mmol/L ABG O2 Saturation 100.8 H (95-98) % ABG Base Excess -5.0 L (-2.0-3.0) mmol/L Devon Test Pos ABG Potassium 4.3 (3.6-5.2) mmol/L A-a O2 Difference 390.0 mm/Hg Respiratory Index 1.8 Sodium 152.0 H 155 H (132-148) mmol/l Chloride 121.0 H 119 H (98-107) mmol/L Glucose 142 H (75-110) mg/dl Lactate 0.8 (0.7-2.1) mmol/L Vent Mode Bipap FiO2 100.0 % Inspiratory BiPAP 21 Expiratory BiPAP 7 Crit Value Called To Dr dejuan figueroa Crit Value Called By Breana sam pharmaceutical physician Crit Value Read Back Y Blood Gas Notified Time 1025 Potassium 4.9 (3.6-5.2) mmol/L Carbon Dioxide 21 L (22-30) mmol/L Anion Gap 21 H (10-20) BUN 69 H (9-20) mg/dL Creatinine 3.3 H (0.8-1.5) mg/dL Est GFR ( Amer) 22 Est GFR (Non-Af Amer) 18 Random Glucose 88 (75-110) mg/dL Calcium 8.1 L (8.6-10.4) mg/dl Phosphorus 3.5 (2.5-4.5) mg/dL Magnesium 1.9 (1.6-2.3) mg/dL Total Bilirubin 1.1 (0.2-1.3) mg/dL AST 42 (17-59) U/L ALT 30 (21-72) U/L Alkaline Phosphatase 139 H (38-126) U/L Total Protein 5.6 L (6.3-8.3) g/dL Albumin 2.6 L D (3.5-5.0) g/dL Globulin 3.0 (2.2-3.9) gm/dL Albumin/Globulin Ratio 0.9 L (1.0-2.1) Arterial Blood Potassium 4.3 (3.6-5.2) mmol/L 11/11/17 Range/Units 13:15 WBC (4.8-10.8) K/uL RBC (4.40-5.90) Mil/uL Hgb (12.0-18.0) g/dL Hct (35.0-51.0) % MCV (80.0-94.0) fL MCH (27.0-31.0) pg MCHC (33.0-37.0) g/dL RDW (11.5-14.5) % Plt Count (130-400) K/uL MPV (7.2-11.7) fL Neut % (Auto) (50.0-75.0) % Lymph % (Auto) (20.0-40.0) % Becker % (Auto) (0.0-10.0) % Eos % (Auto) (0.0-4.0) % Baso % (Auto) (0.0-2.0) % Neut # (Auto) (1.8-7.0) K/uL Lymph # (Auto) (1.0-4.3) K/uL Becker # (Auto) (0.0-0.8) K/uL Eos # (Auto) (0.0-0.7) K/uL Baso # (Auto) (0.0-0.2) K/uL Neutrophils % (Manual) (50-75) % Band Neutrophils % (0-2) % Lymphocytes % (Manual) (20-40) % Monocytes % (Manual) (0-10) % Myelocytes % (0-0) % Toxic Granulation Platelet Estimate (NORMAL) Poikilocytosis (manual Anisocytosis (manual) Target Cells Ovalocytes [place] Cells Puncture Site Na pCO2 41 (35-45) mm/Hg pO2 91 (80-100) mm/Hg HCO3 15.9 L (21-28) mmol/L ABG pH 7.20 L (7.35-7.45) ABG Total CO2 17.3 L (22-28) mmol/L ABG O2 Saturation 99.1 H (95-98) % ABG Base Excess -11.5 L (-2.0-3.0) mmol/L Devon Test Lra ABG Potassium 4.1 (3.6-5.2) mmol/L A-a O2 Difference 286.0 mm/Hg Respiratory Index 3.1 Sodium 150.0 H (132-148) mmol/l Chloride 125.0 H (98-107) mmol/L Glucose 97 (75-110) mg/dl Lactate 1.0 (0.7-2.1) mmol/L Vent Mode Bipap FiO2 60.0 % Inspiratory BiPAP 21 Expiratory BiPAP 5 Crit Value Called To Crit Value Called By Crit Value Read Back Blood Gas Notified Time Potassium (3.6-5.2) mmol/L Carbon Dioxide (22-30) mmol/L Anion Gap (10-20) BUN (9-20) mg/dL Creatinine (0.8-1.5) mg/dL Est GFR ( Amer) Est GFR (Non-Af Amer) Random Glucose (75-110) mg/dL Calcium (8.6-10.4) mg/dl Phosphorus (2.5-4.5) mg/dL Magnesium (1.6-2.3) mg/dL Total Bilirubin (0.2-1.3) mg/dL AST (17-59) U/L ALT (21-72) U/L Alkaline Phosphatase (38-126) U/L Total Protein (6.3-8.3) g/dL Albumin (3.5-5.0) g/dL Globulin (2.2-3.9) gm/dL Albumin/Globulin Ratio (1.0-2.1) Arterial Blood Potassium 4.1 (3.6-5.2) mmol/L Laboratory Results - last 24 hr 11/11/17 11/12/17 11/12/17 13:15 06:11 06:11 WBC 34.7 H RBC 3.08 L Hgb 9.3 L Hct 28.8 L MCV 93.4 MCH 30.2 MCHC 32.3 L RDW 16.8 H Plt Count 45 L MPV 11.3 Neut % (Auto) 97.0 H Lymph % (Auto) 2.0 L Becker % (Auto) 1.0 Eos % (Auto) 0.0 Baso % (Auto) 0.0 Neut # (Auto) 34.0 H Lymph # (Auto) 0.5 L Becker # (Auto) 0.1 Eos # (Auto) 0.0 Baso # (Auto) 0.0 Neutrophils % (Manual) 84 H Band Neutrophils % 11 H* Lymphocytes % (Manual) 1 L Monocytes % (Manual) 3 Myelocytes % 1 H Toxic Granulation Present Platelet Estimate Decreased L Poikilocytosis (manual Slight Anisocytosis (manual) Slight Target Cells Slight Ovalocytes Slight [place] Cells Slight Puncture Site Na pCO2 41 pO2 91 HCO3 15.9 L ABG pH 7.20 L ABG Total CO2 17.3 L ABG O2 Saturation 99.1 H ABG Base Excess -11.5 L Devon Test Lra ABG Potassium 4.1 A-a O2 Difference 286.0 Respiratory Index 3.1 Sodium 150.0 H 155 H Chloride 125.0 H 119 H Glucose 97 Lactate 1.0 Vent Mode Bipap FiO2 60.0 Inspiratory BiPAP 21 Expiratory BiPAP 5 Crit Value Called To Crit Value Called By Crit Value Read Back Blood Gas Notified Time Potassium 4.9 Carbon Dioxide 21 L Anion Gap 21 H BUN 69 H Creatinine 3.3 H Est GFR ( Amer) 22 Est GFR (Non-Af Amer) 18 Random Glucose 88 Calcium 8.1 L Phosphorus 3.5 Magnesium 1.9 Total Bilirubin 1.1 AST 42 ALT 30 Alkaline Phosphatase 139 H Total Protein 5.6 L Albumin 2.6 L D Globulin 3.0 Albumin/Globulin Ratio 0.9 L Arterial Blood Potassium 4.1 11/12/17 10:19 WBC RBC Hgb Hct MCV MCH MCHC RDW Plt Count MPV Neut % (Auto) Lymph % (Auto) Becker % (Auto) Eos % (Auto) Baso % (Auto) Neut # (Auto) Lymph # (Auto) Becker # (Auto) Eos # (Auto) Baso # (Auto) Neutrophils % (Manual) Band Neutrophils % Lymphocytes % (Manual) Monocytes % (Manual) Myelocytes % Toxic Granulation Platelet Estimate Poikilocytosis (manual Anisocytosis (manual) Target Cells Ovalocytes [place] Cells Puncture Site Rr pCO2 89 H* pO2 212 H HCO3 21.1 ABG pH 7.09 L* ABG Total CO2 29.7 H ABG O2 Saturation 100.8 H ABG Base Excess -5.0 L Devon Test Pos ABG Potassium 4.3 A-a O2 Difference 390.0 Respiratory Index 1.8 Sodium 152.0 H Chloride 121.0 H Glucose 142 H Lactate 0.8 Vent Mode Bipap FiO2 100.0 Inspiratory BiPAP 21 Expiratory BiPAP 7 Crit Value Called To Dr dejuan figueroa Crit Value Called By Breana sam pharmaceutical physician Crit Value Read Back Y Blood Gas Notified Time 1025 Potassium Carbon Dioxide Anion Gap BUN Creatinine Est GFR ( Amer) Est GFR (Non-Af Amer) Random Glucose Calcium Phosphorus Magnesium Total Bilirubin AST ALT Alkaline Phosphatase Total Protein Albumin Globulin Albumin/Globulin Ratio Arterial Blood Potassium 4.3 EKG/Cardiology Studies: Cardiology / EKG Studies 11/12/17 03:38 EKG [ELECTROCARDIOGRAM] Stat Comment: Mode Of Transportation: PORTABLE Reason For Exam: rhythm changes, PVC's Isolation: Contact Assessment/Plan - Assessment and Plan (Free Text) Assessment: Patient is a 82 year old male with past medical history of HTN, BPH, incontinence, mitral valve insufficiency, aggressive behavior, who presented with new onset paroxysmal afib, sepsis from [facility]. Admitted to the ICU for closer monitoring. Neurology: -Patient is lethargic , not answering questions appropriately -Still on Bipap, ABG reviewed -Patient failed high flow yesterday due to acidosis, was given bicarb -CT head on admission showed possible medial left cerebellar hemorrhage -Repeat Head CT showed no changed -Neurology on consult, Dr Capps, bharti appreciated -Neurosurgery: Tiny area of inc attenuation in medial L cerebellum of no clinical concern, No neurosurgical involvement necessary -Patient with poor prognosis -Palliative care on consult, Magaly spoke with patient's Niece, Magalys, patient made DNR/DNI -Hospice Evaluation ordered, Discussed with Magalys FERNANDO who is in agreement with hospice, will discharge patient to hospice today Cardiology: -Patient is in atrial fibrillation with RVR -Troponin 0.1050 -> 0.430 -> 0.622 -Amiodarone drip discontinued in light of hypotension -No anticoagulation at this time -Echo showed normal LV systolic function. Borderline dilated RV. Small pericardial effusion -Cardiology, Dr Soler on consult, help appreciated -Lower extremity dopplers negative for DVT bilaterally Respiratory: -CXR 11/10: findings are concerning for worsening multifocal consolidations and pleural effusions -CT chest showed widespread airspace disease the preponderance of which appears to be pulmonary nodules and masses. Largest in RUL/LLL. -Started on High Flow NC, Titrate FiO2 to maintain sats in the 90s -Sputum cultures growing gram negative rods, awaiting sensitivities -Pulmonary on consult, Dr Lopez, help appreciated Renal: -Potassium normalized -Patient with history of chronic kidney disease stage 3 -Continue D5/LR at 40cc/hr -Poor urine output -Nephrology on consult, Dr Tolentino, help appreciated GI: -Patient did not pass bedside nursing swallow eval -Diet: NPO -Pepcid 20mg IVP daily -Albumin 2.0 -Started on Albumin 25gm q6H x 4 doses Heme/Onc: -Thrombocytopenia -Likely secondary to sepsis -Will continue to monitor Infectious Disease: -Patient still with leukocytosis and bandemia -Blood cultures growing Klebsiella Pneumonia x 2, sensitive to Merrem -Urine cultures growing E Coli, sensitive to Merrem -Sputum Cx growing Klebsiella Pneumonia also sensitive to Merrem -Antibiotics: Merrem 1gm Q12H, Azithromycin 500mg IV Q24H -ID on consult, Dr Barakat, help appreciated GI/DVT ppx: -Pepcid 20mg IVP daily -SCDs <Alexia Figueroa - Last Filed: 11/12/17 23:37> CCU Subjective - Physician Review Critical Care Time Spent (in minutes): 35 CCU Objective - Vital Signs / Intake & Output Intake and Output (Last 8hrs): Intake & Output 11/12/17 11/12/17 11/13/17 14:59 22:59 06:59 Intake Total 502.4 Balance 502.4 Intake: Intake, IV Amount 502.4 Left Hand 420 Right Antecubital 82.4 - Patient Studies Lab Studies: Lab Studies 11/12/17 11/12/17 11/12/17 Range/Units 10:19 06:11 06:11 WBC 34.7 H (4.8-10.8) K/uL RBC 3.08 L (4.40-5.90) Mil/uL Hgb 9.3 L (12.0-18.0) g/dL Hct 28.8 L (35.0-51.0) % MCV 93.4 (80.0-94.0) fL MCH 30.2 (27.0-31.0) pg MCHC 32.3 L (33.0-37.0) g/dL RDW 16.8 H (11.5-14.5) % Plt Count 45 L (130-400) K/uL MPV 11.3 (7.2-11.7) fL Neut % (Auto) 97.0 H (50.0-75.0) % Lymph % (Auto) 2.0 L (20.0-40.0) % Becker % (Auto) 1.0 (0.0-10.0) % Eos % (Auto) 0.0 (0.0-4.0) % Baso % (Auto) 0.0 (0.0-2.0) % Neut # (Auto) 34.0 H (1.8-7.0) K/uL Lymph # (Auto) 0.5 L (1.0-4.3) K/uL Becker # (Auto) 0.1 (0.0-0.8) K/uL Eos # (Auto) 0.0 (0.0-0.7) K/uL Baso # (Auto) 0.0 (0.0-0.2) K/uL Neutrophils % (Manual) 84 H (50-75) % Band Neutrophils % 11 H* (0-2) % Lymphocytes % (Manual) 1 L (20-40) % Monocytes % (Manual) 3 (0-10) % Myelocytes % 1 H (0-0) % Toxic Granulation Present Platelet Estimate Decreased L (NORMAL) Poikilocytosis (manual Slight Anisocytosis (manual) Slight Target Cells Slight Ovalocytes Slight [place] Cells Slight Puncture Site Rr pCO2 89 H* (35-45) mm/Hg pO2 212 H (80-100) mm/Hg HCO3 21.1 (21-28) mmol/L ABG pH 7.09 L* (7.35-7.45) ABG Total CO2 29.7 H (22-28) mmol/L ABG O2 Saturation 100.8 H (95-98) % ABG Base Excess -5.0 L (-2.0-3.0) mmol/L Devon Test Pos ABG Potassium 4.3 (3.6-5.2) mmol/L A-a O2 Difference 390.0 mm/Hg Respiratory Index 1.8 Glucose 142 H (75-110) mg/dl Lactate 0.8 (0.7-2.1) mmol/L Vent Mode Bipap FiO2 100.0 % Inspiratory BiPAP 21 Expiratory BiPAP 7 Crit Value Called To Dr dejuan figueroa Crit Value Called By Breana sam pharmaceutical physician Crit Value Read Back Y Blood Gas Notified Time 1025 Sodium 152.0 H 155 H (132-148) mmol/L Potassium 4.9 (3.6-5.2) mmol/L Chloride 121.0 H 119 H (98-107) mmol/L Carbon Dioxide 21 L (22-30) mmol/L Anion Gap 21 H (10-20) BUN 69 H (9-20) mg/dL Creatinine 3.3 H (0.8-1.5) mg/dL Est GFR ( Amer) 22 Est GFR (Non-Af Amer) 18 Random Glucose 88 (75-110) mg/dL Calcium 8.1 L (8.6-10.4) mg/dl Phosphorus 3.5 (2.5-4.5) mg/dL Magnesium 1.9 (1.6-2.3) mg/dL Total Bilirubin 1.1 (0.2-1.3) mg/dL AST 42 (17-59) U/L ALT 30 (21-72) U/L Alkaline Phosphatase 139 H (38-126) U/L Total Protein 5.6 L (6.3-8.3) g/dL Albumin 2.6 L D (3.5-5.0) g/dL Globulin 3.0 (2.2-3.9) gm/dL Albumin/Globulin Ratio 0.9 L (1.0-2.1) Arterial Blood Potassium 4.3 (3.6-5.2) mmol/L Laboratory Results - last 24 hr 11/12/17 11/12/17 11/12/17 06:11 06:11 10:19 WBC 34.7 H RBC 3.08 L Hgb 9.3 L Hct 28.8 L MCV 93.4 MCH 30.2 MCHC 32.3 L RDW 16.8 H Plt Count 45 L MPV 11.3 Neut % (Auto) 97.0 H Lymph % (Auto) 2.0 L Becker % (Auto) 1.0 Eos % (Auto) 0.0 Baso % (Auto) 0.0 Neut # (Auto) 34.0 H Lymph # (Auto) 0.5 L Becker # (Auto) 0.1 Eos # (Auto) 0.0 Baso # (Auto) 0.0 Neutrophils % (Manual) 84 H Band Neutrophils % 11 H* Lymphocytes % (Manual) 1 L Monocytes % (Manual) 3 Myelocytes % 1 H Toxic Granulation Present Platelet Estimate Decreased L Poikilocytosis (manual Slight Anisocytosis (manual) Slight Target Cells Slight Ovalocytes Slight [place] Cells Slight Puncture Site Rr pCO2 89 H* pO2 212 H HCO3 21.1 ABG pH 7.09 L* ABG Total CO2 29.7 H ABG O2 Saturation 100.8 H ABG Base Excess -5.0 L Devon Test Pos ABG Potassium 4.3 A-a O2 Difference 390.0 Respiratory Index 1.8 Glucose 142 H Lactate 0.8 Vent Mode Bipap FiO2 100.0 Inspiratory BiPAP 21 Expiratory BiPAP 7 Crit Value Called To Dr dejuan figueroa Crit Value Called By Breana sam pharmaceutical physician Crit Value Read Back Y Blood Gas Notified Time 1025 Sodium 155 H 152.0 H Potassium 4.9 Chloride 119 H 121.0 H Carbon Dioxide 21 L Anion Gap 21 H BUN 69 H Creatinine 3.3 H Est GFR ( Amer) 22 Est GFR (Non-Af Amer) 18 Random Glucose 88 Calcium 8.1 L Phosphorus 3.5 Magnesium 1.9 Total Bilirubin 1.1 AST 42 ALT 30 Alkaline Phosphatase 139 H Total Protein 5.6 L Albumin 2.6 L D Globulin 3.0 Albumin/Globulin Ratio 0.9 L Arterial Blood Potassium 4.3 EKG/Cardiology Studies: Cardiology / EKG Studies 11/12/17 03:38 EKG [ELECTROCARDIOGRAM] Stat Comment: Mode Of Transportation: PORTABLE Reason For Exam: rhythm changes, PVC's Isolation: Contact Assessment/Plan - Assessment and Plan (Free Text) Assessment: Above resident note reviewed and verified. Patient with h/o COPD and advance directive to avoid agressive measure such as intubation and currently on DNR/ DNI being evaluated for sepsis and metabolic and respiratory acidosis -Chronic metabolic and respiratory acidosis with Hypoxia requiring bi-pap: attempted high flow, but patient could not tolerate -Sepsis: continue broad spectrum abx, check serial lactic -Shock: continue dopamine to keep MAP >65 -continue dvt/pud ppx prognosis poor I have discussed the current management and subsequent poor prognosis of multi 0rgan failure. Patient has DNR/DNI and will likely benefit from hospice eval. Patient's Daughter was informed of hospice program and she verbalized understanding. -Estefany from [facility] care discussed further hospice care. -Daughter verbally agreed to transfer patient to Hospice -Risks, benefits and alternatives explained to daughter. Daughter verbalized understanding. -Patient was transferred to Hospice. -Emotional support provided. - Date & Time Date: 11/12/17 Time: 23:37
[2017-11-12 12:44] VITALS: O2SAT 99
[2017-11-12 12:49] VITALS: TEMP 97.3
[2017-11-12 14:41] VITALS: BP 104/53; PULSE 88; RESP 22
--- NOTE | 2017-11-12 23:55 | CP.PCM.DIS ---
Provider - Provider Date of Admission: 11/08/17 04:26 Attending physician: Cammie Mcginnis MD Hospital Course - Lab Results Lab Results: Micro Results 11/08/17 07:30 Sputum Gram Stain - Final 11/08/17 07:30 Sputum Sputum Culture - Final Klebsiella Pneumoniae Ssp Pneu 11/08/17 02:27 Blood Blood Culture - Final Klebsiella Pneumoniae Ssp Pneu 11/08/17 02:27 Blood Gram Stain - Final 11/08/17 02:27 Urine Urine Culture - Final Escherichia Coli 11/08/17 02:27 Blood Blood Culture - Final Klebsiella Pneumoniae Ssp Pneu 11/08/17 02:27 Blood Gram Stain - Final 11/08/17 00:05 Naris MRSA Culture (Admit) - Final MRSA DETECTED Most Recent Lab Values WBC 34.7 K/uL (4.8-10.8) H 11/12/17 06:11 RBC 3.08 Mil/uL (4.40-5.90) L 11/12/17 06:11 Hgb 9.3 g/dL (12.0-18.0) L 11/12/17 06:11 Hct 28.8 % (35.0-51.0) L 11/12/17 06:11 MCV 93.4 fL (80.0-94.0) 11/12/17 06:11 MCH 30.2 pg (27.0-31.0) 11/12/17 06:11 MCHC 32.3 g/dL (33.0-37.0) L 11/12/17 06:11 RDW 16.8 % (11.5-14.5) H 11/12/17 06:11 Plt Count 45 K/uL (130-400) L 11/12/17 06:11 MPV 11.3 fL (7.2-11.7) 11/12/17 06:11 Neut % (Auto) 97.0 % (50.0-75.0) H 11/12/17 06:11 Lymph % (Auto) 2.0 % (20.0-40.0) L 11/12/17 06:11 Lincoln % (Auto) 1.0 % (0.0-10.0) 11/12/17 06:11 Eos % (Auto) 0.0 % (0.0-4.0) 11/12/17 06:11 Baso % (Auto) 0.0 % (0.0-2.0) 11/12/17 06:11 Neut # (Auto) 34.0 K/uL (1.8-7.0) H 11/12/17 06:11 Lymph # (Auto) 0.5 K/uL (1.0-4.3) L 11/12/17 06:11 Lincoln # (Auto) 0.1 K/uL (0.0-0.8) 11/12/17 06:11 Eos # (Auto) 0.0 K/uL (0.0-0.7) 11/12/17 06:11 Baso # (Auto) 0.0 K/uL (0.0-0.2) 11/12/17 06:11 Neutrophils % (Manual) 84 % (50-75) H 11/12/17 06:11 Band Neutrophils % 11 % (0-2) H* 11/12/17 06:11 Lymphocytes % (Manual) 1 % (20-40) L 11/12/17 06:11 Reactive Lymphs % 1 % (0-0) H 11/08/17 02:40 Monocytes % (Manual) 3 % (0-10) 11/12/17 06:11 Metamyelocytes % 1 % (0-0) H 11/08/17 02:40 Myelocytes % 1 % (0-0) H 11/12/17 06:11 Toxic Granulation Present 11/12/17 06:11 Platelet Estimate Decreased (NORMAL) L 11/12/17 06:11 Large Platelets Present 11/08/17 10:51 Polychromasia Slight 11/11/17 05:50 Hypochromasia (manual) Slight 11/11/17 05:50 Poikilocytosis (manual Slight 11/12/17 06:11 Anisocytosis (manual) Slight 11/12/17 06:11 Target Cells Slight 11/12/17 06:11 Tear Drop Cells Slight 11/11/17 05:50 Ovalocytes Slight 11/12/17 06:11 Upper[place] Cells Slight 11/12/17 06:11 PT 17.1 SECONDS (9.7-12.2) H 11/08/17 02:40 INR 1.5 11/08/17 02:40 APTT 30 SECONDS (21-34) 11/08/17 02:40 Puncture Site Rr 11/12/17 10:19 pCO2 89 mm/Hg (35-45) H* 11/12/17 10:19 pO2 212 mm/Hg (80-100) H 11/12/17 10:19 HCO3 21.1 mmol/L (21-28) 11/12/17 10:19 ABG pH 7.09 (7.35-7.45) L* 11/12/17 10:19 ABG Total CO2 29.7 mmol/L (22-28) H 11/12/17 10:19 ABG O2 Saturation 100.8 % (95-98) H 11/12/17 10:19 ABG Base Excess -5.0 mmol/L (-2.0-3.0) L 11/12/17 10:19 Devon Test Pos 11/12/17 10:19 ABG Potassium 4.3 mmol/L (3.6-5.2) 11/12/17 10:19 VBG pH 7.31 (7.32-7.43) L 11/08/17 05:17 VBG pCO2 39 mmHg (40-60) L 11/08/17 05:17 VBG HCO3 18.2 mmol/L 11/08/17 05:17 VBG Total CO2 20.8 mmol/L (22-28) L 11/08/17 05:17 VBG O2 Sat (Calc) 37.6 % (40-65) L 11/08/17 05:17 VBG Base Excess -6.2 mmol/L (0.0-2.0) L 11/08/17 05:17 VBG Potassium 3.4 mmol/L (3.6-5.2) L 11/08/17 05:17 A-a O2 Difference 390.0 mm/Hg 11/12/17 10:19 Respiratory Index 1.8 11/12/17 10:19 Sodium 152.0 mmol/l (132-148) H 11/12/17 10:19 Chloride 121.0 mmol/L (98-107) H 11/12/17 10:19 Glucose 142 mg/dl (75-110) H 11/12/17 10:19 Lactate 0.8 mmol/L (0.7-2.1) 11/12/17 10:19 Vent Mode Bipap 11/12/17 10:19 FiO2 100.0 % 11/12/17 10:19 Inspiratory BiPAP 21 11/12/17 10:19 Expiratory BiPAP 7 11/12/17 10:19 Crit Value Called To Dr dejuan figueroa 11/12/17 10:19 Crit Value Called By Breana sam brush holder inspector 11/12/17 10:19 Crit Value Read Back Y 11/12/17 10:19 Blood Gas Notified Time 1025 11/12/17 10:19 Sodium 155 mmol/L (132-148) H 11/12/17 06:11 Potassium 4.9 mmol/L (3.6-5.2) 11/12/17 06:11 Chloride 119 mmol/L (98-107) H 11/12/17 06:11 Carbon Dioxide 21 mmol/L (22-30) L 11/12/17 06:11 Anion Gap 21 (10-20) H 11/12/17 06:11 BUN 69 mg/dL (9-20) H 11/12/17 06:11 Creatinine 3.3 mg/dL (0.8-1.5) H 11/12/17 06:11 Est GFR ( Amer) 22 11/12/17 06:11 Est GFR (Non-Af Amer) 18 11/12/17 06:11 POC Glucose (mg/dL) 120 mg/dL (65-110) H 11/08/17 02:19 Random Glucose 88 mg/dL (75-110) 11/12/17 06:11 Lactic Acid 3.0 mmol/L (0.7-2.1) H 11/08/17 10:51 Calcium 8.1 mg/dl (8.6-10.4) L 11/12/17 06:11 Phosphorus 3.5 mg/dL (2.5-4.5) 11/12/17 06:11 Magnesium 1.9 mg/dL (1.6-2.3) 11/12/17 06:11 Total Bilirubin 1.1 mg/dL (0.2-1.3) 11/12/17 06:11 AST 42 U/L (17-59) 11/12/17 06:11 ALT 30 U/L (21-72) 11/12/17 06:11 Alkaline Phosphatase 139 U/L (38-126) H 11/12/17 06:11 Total Creatine Kinase 168 U/L (55-170) 11/08/17 02:40 CK-MB (Mass) 0.68 ng/mL (0.0-3.38) 11/08/17 02:40 Troponin I 0.6220 ng/mL (0.00-0.120) H* 11/09/17 05:39 NT-Pro-B Natriuret Pep 6170 pg/mL (0-900) H 11/08/17 02:40 Total Protein 5.6 g/dL (6.3-8.3) L 11/12/17 06:11 Albumin 2.6 g/dL (3.5-5.0) L D 11/12/17 06:11 Globulin 3.0 gm/dL (2.2-3.9) 11/12/17 06:11 Albumin/Globulin Ratio 0.9 (1.0-2.1) L 11/12/17 06:11 TSH 3rd Generation 3.77 mIU/L (0.46-4.68) 11/08/17 04:24 Arterial Blood Potassium 4.3 mmol/L (3.6-5.2) 11/12/17 10:19 Venous Blood Potassium 3.4 mmol/L (3.6-5.2) L 11/08/17 05:17 Urine Color Eleonora (YELLOW) 11/08/17 03:45 Urine Clarity Hazy (Clear) 11/08/17 03:45 Urine pH 5.0 (5.0-8.0) 11/08/17 03:45 Ur Specific Miles 1.018 (1.003-1.030) 11/08/17 03:45 Urine Protein 2+ mg/dL (NEGATIVE) H 11/08/17 03:45 Urine Glucose (UA) Normal mg/dL (Normal) 11/08/17 03:45 Urine Ketones Negative mg/dL (NEGATIVE) 11/08/17 03:45 Urine Blood 1+ (NEGATIVE) H 11/08/17 03:45 Urine Nitrate Negative (NEGATIVE) 11/08/17 03:45 Urine Bilirubin 1+ (NEGATIVE) H 11/08/17 03:45 Urine Urobilinogen 4.0 mg/dL (0.2-1.0) 11/08/17 03:45 Ur Leukocyte Esterase 1+ Rufus/uL (Negative) H 11/08/17 03:45 Urine WBC (Auto) 59 /hpf (0-5) H 11/08/17 03:45 Urine RBC (Auto) 8 /hpf (0-3) H 11/08/17 03:45 Ur Squamous Epith Cells < 1 /hpf (0-5) 11/08/17 03:45 Amorphous Sediment Rare /ul (<OCC) H 11/08/17 03:45 Urine Bacteria Many (<OCC) H 11/08/17 03:45 Ur Random Creatinine 139.4 mg/dL 11/08/17 12:18 U Random Total Protein 69.0 mg/dL (0.0-12.0) H 11/08/17 13:30 Ur Random Sodium 23 mmol/L 11/08/17 12:18 Random Vancomycin 12.66 ug/mL 11/09/17 05:39 Urine Opiates Screen Negative (NEGATIVE) 11/08/17 06:43 Urine Methadone Screen Negative (NEGATIVE) 11/08/17 06:43 Ur Barbiturates Screen Negative (NEGATIVE) 11/08/17 06:43 Valproic Acid < 10.0 ug/mL (50.0-100.0) L 11/08/17 02:58 Ur Phencyclidine Scrn Negative (NEGATIVE) 11/08/17 06:43 Ur Amphetamines Screen Negative (NEGATIVE) 11/08/17 06:43 U Benzodiazepines Scrn Negative (NEGATIVE) 11/08/17 06:43 U Oth Cocaine Metabols Negative (NEGATIVE) 11/08/17 06:43 U Cannabinoids Screen Negative (NEGATIVE) 11/08/17 06:43 Influenza Typ A,B (EIA) Negative for flu a/b (NEGATIVE) 11/08/17 08:32 Mycoplasma pneumon IgG 2.71 (<=0.90) H 11/08/17 10:51 Mycoplasma pneumon IgM 39 U/mL (<770) 11/08/17 10:51 Ur Strep pneumoniae Ag Not detected 11/08/17 10:51 Discharge Exam - Head Exam Head Exam: NORMOCEPHALIC Discharge Plan - Follow Up Plan Condition: CRITICAL Disposition: HOSPICE - MEDICAL FACILITY Instructions: Sepsis in Adults, Palliative Care Additional Instructions: For In hospital hospice care
== END 2017-11-12 16:30 | disposition hospice, inpatient (51) | DRG 871 ==
LOC: C.ER 02:07 → C.9I 04:26
PROVIDERS: ADMIT Internal Medicine; ATTEND Internal Medicine
PROC: 05HY33Z Insertion of Infusion Device into Upper Vein, Percutaneous Approach (ICD-10-PCS; principal; 2017-11-10)
DX: A41.50 Gram-negative sepsis, unspecified (principal); I61.4 Nontraumatic intracerebral hemorrhage in cerebellum; R65.21 Severe sepsis with septic shock; E87.4 Mixed disorder of acid-base balance; N17.9 Acute kidney failure, unspecified; J18.9 Pneumonia, unspecified organism; D69.6 Thrombocytopenia, unspecified; I31.3 Pericardial effusion (noninflammatory); E83.51 Hypocalcemia; J44.0 Chronic obstructive pulmonary disease with (acute) lower respiratory infection; N39.0 Urinary tract infection, site not specified; R47.01 Aphasia; I48.0 Paroxysmal atrial fibrillation; F03.90 Unspecified dementia, unspecified severity, without behavioral disturbance, psychotic disturbance, mood disturbance, and anxiety; E78.00 Pure hypercholesterolemia, unspecified; F31.9 Bipolar disorder, unspecified; I12.9 Hypertensive chronic kidney disease with stage 1 through stage 4 chronic kidney disease, or unspecified chronic kidney disease; I34.0 Nonrheumatic mitral (valve) insufficiency; K21.9 Gastro-esophageal reflux disease without esophagitis; M81.0 Age-related osteoporosis without current pathological fracture; N18.3 Chronic kidney disease, stage 3 (moderate); R09.02 Hypoxemia; Z74.01 Bed confinement status

== ENCOUNTER 2017-11-12 15:34 | Inpatient (IN) | payer OTHER ==
[2017-11-12] MEDS ORDERED: Hyoscyamine 0.125 mg SL Tab PO PRN (16:49)
[2017-11-12 17:28] VITALS: PULSE 78; O2SAT 88
[2017-11-12] MEDS ORDERED: Morphine Sulfate 250 MG in Dextrose 5% In Water 240 ML IV ONE (17:30)
--- NOTE | 2017-11-12 18:51 | CP.PCM.PRO ---
Pronouncement of Note - Clinical Findings Physical Exam: No Response Verbal/Painful Stimuli, Absent Peripheral Pulses{ Carotid & Femoral}, Absent Heart & Breath Sounds, No Pupillary Light Reflex, No Corneal Reflex, Pupils Fixed & Dilated, Absence of Vital Signs - Pronouncement Time Time of Pronouncement of : 18:49 - Notifications Pronouncement Notifications: Family Notified, Atending Notified
--- NOTE | 2017-11-12 23:57 | CP.PCM.HP ---
Past Patient History - Infectious Disease Hx of Infectious Diseases: None - Past Medical History & Family History Past Medical History?: Yes - Past Social History Smoking Status: unknown if - CARDIAC Hx Cardiac Disorders: Yes Hx Hypercholesterolemia: Yes Hx Hypertension: Yes Other/Comment: Acute Ischemic Heart disease - PULMONARY Hx Respiratory Disorders: No - NEUROLOGICAL Hx Neurological Disorder: Yes Hx Vertigo: Yes Other/Comment: Cerebral Infarction - HEENT Hx HEENT Problems: Yes Hx Blind: Yes (L eye) Hx Cataracts: Yes (bilateral) - RENAL Hx Chronic Kidney Disease: Yes - ENDOCRINE/METABOLIC Hx Endocrine Disorders: No - HEMATOLOGICAL/ONCOLOGICAL Hx Blood Disorders: Yes Hx Anemia: Yes - INTEGUMENTARY Hx Dermatological Problems: No - MUSCULOSKELETAL/RHEUMATOLOGICAL Hx Falls: No - GASTROINTESTINAL Hx Gastrointestinal Disorders: Yes Hx Gastroesophageal Reflux: Yes - GENITOURINARY/GYNECOLOGICAL Hx Prostate Problems: Yes (enlarged) - PSYCHIATRIC Hx Psychophysiologic Disorder: Yes Hx Bipolar Disorder: Yes - SURGICAL HISTORY Hx Surgeries: No - ANESTHESIA Hx Anesthesia: No Hx Anesthesia Reactions: No (n/a) Meds Allergies/Adverse Reactions: Allergies Allergy/AdvReac Type Severity Reaction Status Date / Time No Known Allergies Allergy Unverified 11/08/17 02:23 Results - Vital Signs Recent Vital Signs: Last Vital Signs Temp Pulse 78 11/12/17 17:03 Resp BP Pulse Ox 88 L 11/12/17 17:03
== END 2017-11-12 19:58 | DRG 951 ==
LOC: C.9I 15:34
PROVIDERS: ADMIT Internal Medicine; ATTEND Internal Medicine
DX: Z51.5 Encounter for palliative care (principal); A41.9 Sepsis, unspecified organism; J18.9 Pneumonia, unspecified organism; Z68.1 Body mass index [BMI] 19.9 or less, adult; Z66 Do not resuscitate; F31.9 Bipolar disorder, unspecified; H54.7 Unspecified visual loss; I12.9 Hypertensive chronic kidney disease with stage 1 through stage 4 chronic kidney disease, or unspecified chronic kidney disease; N18.9 Chronic kidney disease, unspecified; K21.9 Gastro-esophageal reflux disease without esophagitis; Z86.73 Personal history of transient ischemic attack (TIA), and cerebral infarction without residual deficits; E78.5 Hyperlipidemia, unspecified; I48.91 Unspecified atrial fibrillation